=== PATIENT | male | born 1940 | race African-American/Black ===

== ENCOUNTER 2020-04-27 00:50 | Inpatient (IN) | payer MEDICARE ==
[~2020-04-27] VITALS: Ht 188 cm; Wt 104.4 kg
--- NOTE | 2020-04-27 01:02 | NUR ---
ED Nurse Note: pt walked into ED from home c/o bilateral lower extremity pain that is weeping clear fluid. Extremities are red and swollen. Pt denies numbness or tingling. Pt reported injury 2 months ago where he tripped and fell and LE have been hurting ever since.
--- NOTE | 2020-04-27 01:22 | Emergency Room Report ---
History of Present Illness General Chief Complaint: Lower Extremity Injury Source: Patient Present Illness HPI This is a 80-year-old male who is homeless. He has no past medical history. He presents with chief complaint of swelling and redness with drainage to his lower extremity. 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 He said it was bruised badly. He said it started getting red and mildly swollen about a week ago. The last 2 to 3 days it started getting more swollen and draining. Tenderness to the lower extremities. Mostly on the right side. He is then putting gauze on it. Denies any fever chills. Denies any new trauma. No nausea no vomiting. Pain is 7 out of 10. Worse with walking. Better with rest. Allergies: Coded Allergies: No Known Allergies (Unverified , 04/27/20) COVID-19 Screening Contact w/high risk pt: No Experienced COVID-19 symptoms?: No COVID-19 Testing performed JEWELRY INSPECTOR: No Patient History Past Medical History: none, see triage record, old chart reviewed Past Surgical History: none Pertinent Family History: none Social History: Denies: smoking Immunizations: other Reviewed Nursing Documentation: PMH: Agreed; PSxH: Agreed Nursing Documentation-PMH Past Medical History: No Stated History Review of Systems Eye: Denies: eye pain, blurred vision ENT: Denies: ear pain, nose congestion, throat swelling Respiratory: Denies: cough, shortness of breath Cardiovascular: Denies: chest pain, palpitations Gastrointestinal: Denies: abdominal pain, diarrhea, nausea, vomiting Musculoskeletal: Reports: muscle pain; Denies: back pain, joint pain Skin: Denies: rash Neurological: Denies: headache, numbness Endocrine: Denies: increased thirst, increased urine Hematologic/Lymphatic: Denies: easy bruising All Other Systems: negative except mentioned in HPI Physical Exam Vital Signs Date Time Temp Pulse Resp B/P (MAP) Pulse Ox O2 Delivery O2 Flow Rate FiO2 04/27/20 00:54 98.8 93 16 134/76 (95) 98 Room Air Vitals normal Sp02 EP Interpretation: reviewed, normal General Appearance: well appearing, no apparent distress, alert Head: normocephalic, atraumatic Eyes: bilateral eye PERRL, bilateral eye EOMI ENT: hearing grossly normal, normal pharynx Neck: full range of motion, supple, no meningismus Respiratory: chest non-tender, lungs clear, normal breath sounds Cardiovascular #1: regular rate, rhythm, no murmur Gastrointestinal: normal bowel sounds, non tender, no mass, no organomegaly, no bruit, non-distended Musculoskeletal: back normal, normal range of motion, gait/station normal, other - Bilateral lower extremity with lymphedema. Right lower extremity with erythema from the foot up to the proximal calf. There is ulceration with oozing serous fluid. Pulses normal. Psychiatric: mood/affect normal Medical Decision Making Diagnostic Impression: Primary Impression: Cellulitis of both lower extremities Additional Impression: Homelessness ER Course This elderly homeless male presents with lower extremity swelling and drainage. He has cellulitis mostly in the right lower extremity. Antibiotics given. Labs unremarkable. Will admit for IV antibiotics and social service consult. I discussed the case with Dr. Avalos for admission. Last Vital Signs Date Time Temp Pulse Resp B/P (MAP) Pulse Ox O2 Delivery O2 Flow Rate FiO2 04/27/20 00:54 98.8 93 16 134/76 (95) 98 Room Air Status: improved Disposition: ADMITTED INPATIENT Condition: Serious Referrals: NOT CHOSEN IPA/,REFERRING (PCP) Ulises Ivory MD Apr 27, 2020 01:22
[2020-04-27] MEDS ORDERED: Piperacillin/Tazobactam 3.375 GM in NS 110 ML IVPB ONE (01:30)
[2020-04-27] MEDS ORDERED: Vancomycin 1.5gm/NS Premix 275 ML IVPB ONE (01:30)
--- NOTE | 2020-04-27 01:42 | NUR ---
ED Nurse Note: blood and wound culture sent to lab
[2020-04-27] MEDS ORDERED: ASPIRIN81 MG ORAL (01:43)
[2020-04-27 01:55] LABS: BASOPHILS % (AUTO) 5.3 % (0.0-2.0); HEMATOCRIT 42.4 % (42.0-52.0); HEMOGLOBIN 13.1 G/DL (14.2-18.0); LYMPHOCYTES % (AUTO) 20.5 % (20.0-45.0); MEAN CORPUSCULAR VOLUME 77 FL (80-99); MONOCYTES % (AUTO) 11.4 % (1.0-10.0); NEUTROPHILS % (AUTO) 60.8 % (45.0-75.0); PLATELET COUNT 257 K/UL (150-450); RED BLOOD COUNT 5.47 M/UL (4.70-6.10); RED CELL DISTRIBUTION WIDTH 15.8 % (11.6-14.8); WHITE BLOOD COUNT 5.1 K/UL (4.8-10.8)
--- NOTE | 2020-04-27 03:00 | NUR ---
ED Nurse Note: blood resent
[2020-04-27 03:16] LABS: CALCIUM 8.5 MG/DL (8.5-10.1); CREATININE 1.6 MG/DL (0.55-1.30); POTASSIUM 3.9 MMOL/L (3.5-5.1)
--- NOTE | 2020-04-27 03:25 | NUR ---
ED Nurse Note: Report given to NORM Alford in med surg.
--- NOTE | 2020-04-27 03:27 | NUR ---
ED Nurse Note: pt transfered to med surg floor via parveen pt in stable conditon. Packet and belongings taken with patient.
[2020-04-27 04:30] VITALS: BP 134/75
--- NOTE | 2020-04-27 05:08 | NUR ---
NURSE NOTES: Paged Dr Avalos for admission orders. Vanco running through IV from ED. Patient stable, witnessed going to bathroom with steady gait
[2020-04-27] MEDS ORDERED: Morphine Sulfate 2mg/ml Inj(IV/IM USE ONLY) IVP PRN (06:00)
[2020-04-27] MEDS: D5 1/2NS 1,000 ML IV SCH ×2 (06:22→23:35)
--- NOTE | 2020-04-27 07:40 | NUR ---
NURSE NOTES: WALKING ROUNDS DONE WITH IGHT RN. PATIENT AWAKE IN BED. QUESTIONS ANSWERED, NEEDS MET AT THIS TIME. DISCUSSED PLAN OF CARE FOR THE DAY. ASSESSED BLE, NOTED PITTING EDEMA WITH MILD PAIN TO TOUCH TO LLE.KERLIX WRAPPED BY ED RN DUE TO DRAINAGE. PATIENT TO BE SEEN BY WOUND CARE NURSE TODAY.
--- NOTE | 2020-04-27 07:52 | NUR ---
HAND-OFF: Report given to NORM Heaton. Patient stable, finished breakfast.
[2020-04-27 08:00] VITALS: BP 131/75
--- NOTE | 2020-04-27 08:29 | NUR ---
NURSE NOTES: UPON DOING HEAD TO TOE ASSESSMENT NOTED PATIENT RADIAL PULSE UPON PALPATION WAS RAPID. HR 100-103. BP 131/75. ASYMPTOMATIC. NO SOB/ NO CP. PATIENT STATES THEY DO NOT TAKE PRESCRIPTION MEDS ONLY ASA PROPHYLACTICALLY. BLE NOTED EDEMATOUS AND PITTING. ERYTHEMA PRESENT. CAPILLARY REFILL LESS THAN 3 SECONDS TO BILATERAL GREAT TOES.C/O OF PAIN TO LLE VS. RLE WHEN TOUCHED. ALL FINDINGS REPORTED TO DR. ELIZABETH AND AWAITING RETURN CALL TO SUGGEST EKG AND VENOUS DUPLEX.
[2020-04-27] MEDS ORDERED: Heparin 5000 units/ml inj SUBQ SCH (09:00)
[2020-04-27 09:31] LABS: EOSINOPHILS % (AUTO) 2.5 % (0.0-3.0); HEMATOCRIT 35.9 % (42.0-52.0); HEMOGLOBIN 11.2 G/DL (14.2-18.0); LYMPHOCYTES % (AUTO) 19.4 % (20.0-45.0); MEAN CORPUSCULAR VOLUME 77 FL (80-99); MONOCYTES % (AUTO) 11.2 % (1.0-10.0); NEUTROPHILS % (AUTO) 62.9 % (45.0-75.0); PLATELET COUNT 200 K/UL (150-450); RED BLOOD COUNT 4.67 M/UL (4.70-6.10); RED CELL DISTRIBUTION WIDTH 15.6 % (11.6-14.8)
--- NOTE | 2020-04-27 09:42 | NUR ---
NURSE NOTES: RETURN CALL RECEIVED NOW FROM DR. ELIZABETH TO ORDER VENOUS DUPLEX, EKG STAT.AND CONSULT DR. CONNELL. ORDERS CARRIED OUT. SPOKE TO DR. CONNELL, IN ADDITION ORDERED 2/D ECHO STA. CARDIO TO SEE PATIENT THIS AFTERNOON. WILL FWD EKG TO MD ONCE DONE.
[2020-04-27 09:43] LABS: CREATININE 1.6 MG/DL (0.55-1.30)
--- NOTE | 2020-04-27 10:40 | NUR ---
NURSE NOTES: EKG; ABNORMAL AND FORWARDED TO DR. CONNELL. NEW ORDERS RECEIVED TO TRANSFER TO [address] [place] [address]. CHARGE NURSE AND NURSING CRATE BUILDER INFORMED. PATIENT REMAINS ASYMPTOMATIC.
--- NOTE | 2020-04-27 11:18 | NUR ---
NURSE NOTES: TRANSFER TO [facility] BED 214-1 RECEIVED.PLACED CALL TO UNIT TO RECEIVING NURSELEELA. NURSE NOT AVAILALBLE PER DARNELL SOFTWARE CLERK TO RECEIVE TRANSFER. WILL CALL BACK WITHIN 15-20 MINS.
--- NOTE | 2020-04-27 11:41 | Cardiology Report ---
APPROVED REPORT EXAM: Two-dimensional and M-mode echocardiogram with Doppler and color Doppler. INDICATION TACHYCARDIA M-Mode DIMENSIONS IVSd1.2 (0.7-1.1cm)Left Atrium (MM)4.7 (1.6-4.0cm) LVDd5.7 (3.5-5.6cm)Aortic Root3.7 (2.0-3.7cm) PWd1.2 (0.7-1.1cm)Aortic Cusp Exc.2.0 (1.5-2.0cm) IVSs1.4 cm LVDs4.5 (2.5-4.0cm) PWs1.5 cm <Conclusion> Normal left ventricular chamber size. mid to distal posterior and inferior wall ventricular hypokinesis Study reconrded during afib Left ventricular ejection fraction estimated to be 50%, however the ef looks better after long RR intervals. Mild left ventricular hypertrophy. No evidence of pericardial fat or effusion. Mild right atrial enlargement. Normal left atrial chamber size. Right ventricular chamber sizes appear enlarged adn mildlyu hypokinetic Calcification of aortic valve with adequate cusp excursion. Thickened mitral valve leaflets with normal excursion. Mitral annulus and aortic root calcification. Pulmonic valve not well visualized. Normal tricuspid valve structure. IVC dilated at 2.4cm with physiologic collapse suggestive of increased RA pressure. A color flow and spectral Doppler study was performed and revealed: Mild aortic insufficiency. Mild mitral regurgitation. Mitral inflow velocities nondiagnostic Mild tricuspid regurgitation. Tricuspid systolic velocities suggests peak right ventricular systolic pressure of 42 mmHg,consistent with mild pulmonary hypertension. Moderate pulmonic regurgitation present.
[2020-04-27 11:53] VITALS: BP 174/108
--- NOTE | 2020-04-27 12:00 | NUR ---
NURSE NOTES: TRANSFER 2 [facility]. TRANSFERRED PATIENT TO [facility] ROOM 214-1 VIA BED. ALL BELONGINGS CHECKED WITH RECEIVING RN. BEDSIDE REPORT GIVEN.
--- NOTE | 2020-04-27 12:07 | NUR ---
NURSE NOTES: Received report from NORM Heaton. Pt is stable on RA. No s/s or complaints of distress at this time. Pt bed low and locked, call light in reach, bed alarm on and pt verbalized understanding to call for help. Placed SS consult at this time as Pt stated he was recently homeless d/t covid. B leg swelling, wrapping in kerlex. Pt IV on R hand 20g asymptomatic and intact. R hand 20g asymptomatic and intact. running d51/2NS.
--- NOTE | 2020-04-27 12:40 | Consultation ---
History of Present Illness General Date patient seen: Apr 27, 2020 Chief Complaint: Lower Extremity Injury Present Illness HPI 80 y/o M with hx of homelessness presented to ED on 04/27/20 with LE swelling, redness, pain and drainage. Patient had recent injury on his legs while working on his SUV about 1 month ago and that he bruised it badly. It is worse int he right leg and pain is worse with exertion. Denied f/c, n/v/d Allergies: Coded Allergies: No Known Allergies (Unverified , 04/27/20) Medication History Scheduled Aspirin* (Aspirin*), 81 MG ORAL DAILY, (Reported) Patient History Healthcare decision maker Resuscitation status Advanced Directive on File Patient History Narrative Pmhx: as above Shx:Denies: smoking Fhx: non contributory Review of Systems All Other Systems: negative except mentioned in HPI Physical Exam Physical Exam Narrative General Appearance: well appearing, no apparent distress, alert Head: normocephalic, atraumatic Eyes: bilateral eye PERRL, bilateral eye EOMI Neck: full range of motion, supple, no meningismus Respiratory: chest non-tender, lungs clear, normal breath sounds Cardiovascular regular rate, rhythm, no murmur Gastrointestinal: normal bowel sounds, non tender, no mass, no organomegaly, no bruit, non-distended Musculoskeletal: back normal, normal range of motion, gait/station normal, other - Bilateral lower extremity with lymphedema. Right lower extremity with erythema from the foot up to the proximal calf. There is ulceration with oozing serous fluid. Pulses normal. Last 24 Hour Vital Signs Date Time Temp Pulse Resp B/P (MAP) Pulse Ox O2 Delivery O2 Flow Rate FiO2 04/27/20 11:53 98.2 108 18 174/108 (130) 96 04/27/20 09:00 Room Air 04/27/20 08:00 98.1 100 20 131/75 (93) 98 04/27/20 04:30 97.3 69 20 134/75 (94) 98 04/27/20 04:25 Room Air 04/27/20 03:26 98.8 86 18 131/68 100 Room Air 04/27/20 00:54 98.8 93 16 134/76 (95) 98 Room Air Intake and Output 04/26/20 04/27/20 19:00 07:00 Intake Total 345 ml Balance 345 ml Intake Oral 175 ml IV Total 170 ml # Voids 2 Laboratory Tests Test 04/27/20 01:40 04/27/20 02:52 04/27/20 08:15 White Blood Count 5.1 K/UL (4.8-10.8) 4.0 K/UL (4.8-10.8) L Red Blood Count 5.47 M/UL (4.70-6.10) 4.67 M/UL (4.70-6.10) L Hemoglobin 13.1 G/DL (14.2-18.0) L 11.2 G/DL (14.2-18.0) L Hematocrit 42.4 % (42.0-52.0) 35.9 % (42.0-52.0) L Mean Corpuscular Volume 77 FL (80-99) L 77 FL (80-99) L Mean Corpuscular Hemoglobin 24.0 PG (27.0-31.0) L 23.9 PG (27.0-31.0) L Mean Corpuscular Hemoglobin Concent 31.0 G/DL (32.0-36.0) L 31.1 G/DL (32.0-36.0) L Red Cell Distribution Width 15.8 % (11.6-14.8) H 15.6 % (11.6-14.8) H Platelet Count 257 K/UL (150-450) 200 K/UL (150-450) Mean Platelet Volume 9.7 FL (6.5-10.1) 10.9 FL (6.5-10.1) H Neutrophils (%) (Auto) 60.8 % (45.0-75.0) 62.9 % (45.0-75.0) Lymphocytes (%) (Auto) 20.5 % (20.0-45.0) 19.4 % (20.0-45.0) L Monocytes (%) (Auto) 11.4 % (1.0-10.0) H 11.2 % (1.0-10.0) H Eosinophils (%) (Auto) 2.0 % (0.0-3.0) 2.5 % (0.0-3.0) Basophils (%) (Auto) 5.3 % (0.0-2.0) H 4.0 % (0.0-2.0) H Lactic Acid Level 1.90 mmol/L (0.4-2.0) Sodium Level 140 MMOL/L (136-145) 139 MMOL/L (136-145) Potassium Level 3.9 MMOL/L (3.5-5.1) 4.0 MMOL/L (3.5-5.1) Chloride Level 105 MMOL/L (98-107) 105 MMOL/L (98-107) Carbon Dioxide Level 30 MMOL/L (21-32) 25 MMOL/L (21-32) Anion Gap 5 mmol/L (5-15) 9 mmol/L (5-15) Blood Urea Nitrogen 23 mg/dL (7-18) H 20 mg/dL (7-18) H Creatinine 1.6 MG/DL (0.55-1.30) H 1.6 MG/DL (0.55-1.30) H Estimat Glomerular Filtration Rate 50.8 mL/min (>60) 50.8 mL/min (>60) Glucose Level 95 MG/DL (74-106) 143 MG/DL (74-106) H Calcium Level 8.5 MG/DL (8.5-10.1) 8.0 MG/DL (8.5-10.1) L Height (Feet): 6 Height (Inches): 2.00 Weight (Pounds): 219 Medications Current Medications Medications (Trade) Dose Ordered Sig/Naa Route PRN Reason Start Time Stop Time Status Last Admin Dose Admin Dextrose/Sodium Chloride 1,000 ml @ 60 mls/hr [id number] IV 04/27/20 07:00 05/27/20 06:59 04/27/20 06:22 Heparin Sodium (Porcine) (Heparin 5000 units/ml) 5,000 units EVERY 12 HOURS SUBQ 04/27/20 09:00 06/11/20 08:59 04/27/20 09:01 Morphine Sulfate (Morphine Sulfate) 2 mg Q4H PRN IVP Severe Pain (Pain Scale 7-10) 04/27/20 06:00 05/04/20 05:59 Assessment/Plan Assessment/Plan: Abx: IV Vancomycin x1 04/27 Zosynx 1 04/27 Assessment: B/l LE cellulitis- R>L Afebrile No leukocytosis CATERINA vs CKD homelessness Plan: -Continue IV Vancomycin #1 and start Unasyn -f/u cx -Monitor CBC/CMP, temperatures -wound care per hospital protocol Thank you for this consultation. Will continue to follow along with you. Discussed with NORM. Sherron Leal M.D. Apr 27, 2020 12:40
--- NOTE | 2020-04-27 12:45 | Cardiac Electrophysiology PN ---
Subjective Subjective [id number] Objective Last 24 Hour Vital Signs Date Time Temp Pulse Resp B/P (MAP) Pulse Ox O2 Delivery O2 Flow Rate FiO2 04/27/20 11:53 98.2 108 18 174/108 (130) 96 04/27/20 09:00 Room Air 04/27/20 08:00 98.1 100 20 131/75 (93) 98 04/27/20 04:30 97.3 69 20 134/75 (94) 98 04/27/20 04:25 Room Air 04/27/20 03:26 98.8 86 18 131/68 100 Room Air 04/27/20 00:54 98.8 93 16 134/76 (95) 98 Room Air Intake and Output 04/26/20 04/27/20 19:00 07:00 Intake Total 345 ml Balance 345 ml Intake Oral 175 ml IV Total 170 ml # Voids 2 Laboratory Tests Test 04/27/20 01:40 04/27/20 02:52 04/27/20 08:15 White Blood Count 5.1 K/UL (4.8-10.8) 4.0 K/UL (4.8-10.8) L Red Blood Count 5.47 M/UL (4.70-6.10) 4.67 M/UL (4.70-6.10) L Hemoglobin 13.1 G/DL (14.2-18.0) L 11.2 G/DL (14.2-18.0) L Hematocrit 42.4 % (42.0-52.0) 35.9 % (42.0-52.0) L Mean Corpuscular Volume 77 FL (80-99) L 77 FL (80-99) L Mean Corpuscular Hemoglobin 24.0 PG (27.0-31.0) L 23.9 PG (27.0-31.0) L Mean Corpuscular Hemoglobin Concent 31.0 G/DL (32.0-36.0) L 31.1 G/DL (32.0-36.0) L Red Cell Distribution Width 15.8 % (11.6-14.8) H 15.6 % (11.6-14.8) H Platelet Count 257 K/UL (150-450) 200 K/UL (150-450) Mean Platelet Volume 9.7 FL (6.5-10.1) 10.9 FL (6.5-10.1) H Neutrophils (%) (Auto) 60.8 % (45.0-75.0) 62.9 % (45.0-75.0) Lymphocytes (%) (Auto) 20.5 % (20.0-45.0) 19.4 % (20.0-45.0) L Monocytes (%) (Auto) 11.4 % (1.0-10.0) H 11.2 % (1.0-10.0) H Eosinophils (%) (Auto) 2.0 % (0.0-3.0) 2.5 % (0.0-3.0) Basophils (%) (Auto) 5.3 % (0.0-2.0) H 4.0 % (0.0-2.0) H Lactic Acid Level 1.90 mmol/L (0.4-2.0) Sodium Level 140 MMOL/L (136-145) 139 MMOL/L (136-145) Potassium Level 3.9 MMOL/L (3.5-5.1) 4.0 MMOL/L (3.5-5.1) Chloride Level 105 MMOL/L (98-107) 105 MMOL/L (98-107) Carbon Dioxide Level 30 MMOL/L (21-32) 25 MMOL/L (21-32) Anion Gap 5 mmol/L (5-15) 9 mmol/L (5-15) Blood Urea Nitrogen 23 mg/dL (7-18) H 20 mg/dL (7-18) H Creatinine 1.6 MG/DL (0.55-1.30) H 1.6 MG/DL (0.55-1.30) H Estimat Glomerular Filtration Rate 50.8 mL/min (>60) 50.8 mL/min (>60) Glucose Level 95 MG/DL (74-106) 143 MG/DL (74-106) H Calcium Level 8.5 MG/DL (8.5-10.1) 8.0 MG/DL (8.5-10.1) Adrian Sunshine MD Apr 27, 2020 12:45
--- NOTE | 2020-04-27 14:03 | NUR ---
CASE MANAGEMENT:INITIAL REVIEW 80 YR OLD FEMALE FROM HOME CC;LOWER EXTREMITY INJURY SI;LOWER EXTREMITY CELLULITIS 98.3 128 20 174/108 96% ON RA BUN 23 CR 1.6 2D ECHO W/DOPPLER ~ Mild aortic insufficiency. Mild mitral regurgitation. Mitral inflow velocities nondiagnostic Mild tricuspid regurgitation. Tricuspid systolic velocities suggests peak right ventricular systolic pressure of 42 mmHg,consistent with mild pulmonary hypertension. Moderate pulmonic regurgitation present. IS;ZOSYN IV VANCOMYCIN IV IVF NS BOLUS ADMITTED TO MED SURG 04/27/20 0236 TRANSFERRED TO TELE 04/27/20 @ 1032 TELE STATUS DCP;FROM HOME
--- NOTE | 2020-04-27 14:44 | Diagnostic Imaging Report ---
Indication:Leg pain and swelling Technique: Grayscale and duplex Doppler imaging of the veins in both lower extremities performed in real time utilizing compression and augmentation. Comparison: None Findings: Duplex Doppler interrogation of the veins in both lower extremity is performed from the common femoral vein to the popliteal vein. Normal venous compressibility demonstrated throughout. No thrombus identified. Waveform analysis shows good respiratory phasicity and augmentation. There is mild subcutaneous soft tissue edema. IMPRESSION: No evidence of deep venous thrombosis involving the lower extremities.
--- NOTE | 2020-04-27 15:47 | NUR ---
WINEMAKER NOTE SW met w/ pt to discuss homelessness. Pt presents as A&O4x. Pt has been homeless for 5 months after being evicted from his apartment. Pt has been staying in his van, currently parked on the street. Pt has been staying in [facility]. Pt receives SSI and has no income left for this month. Pt reports paying his storage $500/mo and his car insurance bill. Pt reports being ambulatory w/o DMEs and independent w/ ADLs prior to admission. Pt reports having no children/family emergency contact. Pt reports he does have some tasks to complete upon DC: smog test for his car and get food safety certification. PT reports he will consider accepting placement assistance. SW will re-visit pt to discuss DC planning when DC date is known.
[2020-04-27 16:00] VITALS: BP 136/72
[2020-04-27] MEDS ORDERED: Vancomycin 1.5gm/NS Premix q24h IVPB SCH (16:00)
--- NOTE | 2020-04-27 17:00 | History and Physical Report ---
DATE OF ADMISSION: 04/27/2020 TIME SEEN: 1 p.m. CONSULTANTS: 1. Juan Juan MD 2. Adrian Rahman MD CHIEF COMPLAINT: Cellulitis right leg, possible arrhythmia. BRIEF HISTORY: This is a 80-year-old homeless man, who presents to [facility] with about 1 week increased redness in the right leg, diagnosed with the above, admitted to [facility]. Currently calm in bed. No complaint. No chest pain. No shortness of breath. No nausea, vomiting, or diarrhea. PAST MEDICAL HISTORY: Nothing. PAST SURGICAL HISTORY: Back surgery. MEDICATIONS: Include furosemide, carvedilol, apixaban, morphine, vancomycin, Zosyn. ALLERGIES: Denies. SOCIAL HISTORY: No smoking. No alcohol. No intravenous drug abuse. FAMILY HISTORY: Noncontributory. PHYSICAL EXAMINATION: GENERAL: Calm in bed, oriented x3, no acute distress. VITAL SIGNS: Temperature is 98 degrees, pulse 108, respirations 18, blood pressure 174/108, initially 134/75. CARDIOVASCULAR: No murmur. LUNGS: Distant and clear. ABDOMEN: Bowel sounds positive. Nontender. Nondistended. EXTREMITIES: No cyanosis, clubbing, or edema. Right rae area slightly radiating down to the foot slightly swollen, slightly red. Gauze dressing clean and dry. NEUROLOGIC: Patient moves all extremities, slightly weak. LABORATORY DATA: Labs at this time show white count 4, hemoglobin/hematocrit 11/35, platelets 200. BMP show BUN/creatinine 20/1.6, glucose 143. ASSESSMENT: 1. Cellulitis right leg. 2. Arrhythmia possibly. 3. Elevated blood sugar. PLAN: 1. Blood pressure, blood sugar, pain control. 2. Wound care. 3. Dietary followup. 4. Cardiology and ID followup. 5. evaluation when stable. 6. CBC, BMP in the morning. Robert Avalos D.O. DR: GERRY JOB#: [id number] CC:
[2020-04-27] MEDS: Ampicillin/Sulbactam Sod 3 GM in NS 110 ML IVPB SCH ×2 (18:11→23:36)
[2020-04-27] MEDS: Eliquis 5mg tablet ORAL SCH (18:11)
--- NOTE | 2020-04-27 19:10 | NUR ---
NURSE NOTES: Received report from NORM Morgan. Pt alert/oriented x4, able to make needs known. No resp distress noted. service support representative in place. No s/s or complaints of distress at this time. IV on right hand running D5 1/2 NS AT 60CC/HR no s/s infiltration noted. Bilateral lower legs cellulitis, noted red, swollen & warm to touch. Bed in low position & locked, side rails up x2. Call light with in reach. Will continue plan of care.
--- NOTE | 2020-04-27 19:25 | NUR ---
NURSE HAND-OFF REPORT: Important Events on Shift: AFIB, transfer from [facility] to [facility] Patient Status: fc, stable Diet: regular Pending Orders: Pending Results/Labs: Pending MD notification: Latest Vital Signs: Temperature 97.7 , Pulse 116 , B/P 136 /72 , Respiratory Rate 20 , O2 SAT 98 , Room Air, O2 Flow Rate . Vital Sign Comment: EKG Rhythm: Atrial Fibrillation Rhythm change?: N MD Notified?: Robbie Dobbins MD Response: Latest Saleh Fall Score: 60 Fall Risk: High Risk Safety Measures: Call light Within Reach, Bed Alarm Zone 1, Side Rails Side Rails x2, Bed position Low and Locked. Fall Precautions: Door Sign Patient Fall Education Report given to NORM Bronson.NURSE NOTES:
[2020-04-27 20:00] VITALS: BP 127/76
--- NOTE | 2020-04-27 20:30 | Consultation ---
DATE OF CONSULTATION: 04/27/2020 CARDIOLOGY CONSULTATION CONSULTING PHYSICIAN: Adrian Rahman MD REFERRING PHYSICIAN: Robert Avalos DO REASON FOR THE CARDIAC CONSULTATION: Congestive heart failure and lower extremity edema, ejection fraction of 40% as well as atrial fibrillation with rapid ventricular response. HISTORY OF PRESENT ILLNESS: The patient is a very pleasant 80-year-old gentleman who is homeless with no known past medical history, who presented to the emergency room with swelling, redness, and drainage from lower extremity. He said that he injured it while working on a ceiling about a month ago and it was bleeding badly. He said it started getting red and mildly swollen about a week ago and it was draining in the last 2-3 days. The patient was admitted to telemetry and was started on IV antibiotic; however, today the patient developed tachycardia with heart rate in 130s and EKG was performed that showed atrial fibrillation with rapid ventricular response with heart rate of 150 as well as bifascicular block. The patient was then transferred to telemetry at my request and Cardiology consultation was obtained for further evaluation. REVIEW OF SYSTEMS: Negative other than what is mentioned in history of present illness. PAST MEDICAL HISTORY: As mentioned above. FAMILY HISTORY: Noncontributory. SOCIAL HISTORY: He is homeless and occasionally smokes, but denies drinking alcohol or using any drugs. PHYSICAL EXAMINATION: VITAL SIGNS: Blood pressure of 174/108, pulse is 108, respirations 18, and temperature 98.2. NECK: Showed mild JVD. LUNGS: Decreased breath sounds. CARDIOVASCULAR: Irregularly irregular S1 and S2 with no gallop. ABDOMEN: Soft. EXTREMITIES: Bilateral lower extremity edema and cellulitis. LABORATORY AND DIAGNOSTIC DATA: Labs showed white count of 4, hemoglobin 11.2, hematocrit 36, and platelet count of 200,000. Sodium was 139, potassium 4.0, BUN of 20, creatinine 1.6, and glucose of 143. Lactic acid 1.9. EKG showed atrial fibrillation with rapid ventricular response with bifascicular block and T-wave abnormalities suggestive of lateral ischemia. His echocardiogram showed ejection fraction of only 40% and mild mitral regurgitation. Lower extremity duplex showed no evidence of DVT. ASSESSMENT AND PLAN: 1. Congestive heart failure with ejection fraction of 40%. This is newly diagnosed cardiomyopathy. I will start the patient on Coreg and add Lasix medical regimen, and watch his renal function. At some point, the patient will need cardiac catheterization for further evaluation of his coronaries, especially in view of inferolateral ischemia on a 12-lead EKG. 2. Atrial fibrillation with rapid ventricular response. I will add Coreg to his medical regimen hopefully to control ventricular response. Otherwise, we will switch him to low-dose metoprolol. The patient will be started on anticoagulation with Eliquis 5 mg b.i.d. 3. Bilateral lower extremity cellulitis. The patient is on antibiotic per ID. Thank you very much for allowing me to participate in the care of this patient. Please do not hesitate to contact me for any questions regarding my evaluation. Adrian Rahman M.D. DR: JORJE JOB#: [id number] CC:
[2020-04-27] MEDS: Carvedilol 6.25mg Tab ORAL SCH (20:47)
--- NOTE | 2020-04-27 22:57 | Consultation ---
History of Present Illness General Reason for Hospitalization: Lower Extremity Injury Present Illness HPI This is a very pleasant 80-year-old male who is homeless and has no apparent past medical history that presents to [facility] for evaluation of swelling and redness with drainage to his lower extremity. 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 He said it was bruised badly. He said it started getting red and mildly swollen about a week ago. The last 2 to 3 days it started getting more swollen and draining. Tenderness to the lower e xtremities. Mostly on the right side. He is then putting gauze on it. Denies any fever chills. Denies any new trauma. No nausea no vomiting. Pain is 7 out of 10. Worse with walking. Better with rest. surgery called to evaluate and assist with care. Allergies: Coded Allergies: No Known Allergies (Unverified , 04/27/20) COVID-19 Screening Contact w/high risk pt: No Experienced COVID-19 symptoms?: No Medication History Scheduled Aspirin* (Aspirin*), 81 MG ORAL DAILY, (Reported) Patient History History Provided By: Patient, Medical Record, PMD Healthcare decision maker Resuscitation status Advanced Directive on File Past Medical/Surgical History Past Medical/Surgical History: (1) Homelessness (2) Cellulitis of both lower extremities Review of Systems Review of Symptoms General ROS: no weight loss or fever Psychological ROS: no depression or mood changes, no memory loss Ophthalmic ROS: no visual changes or eye irritation ENT ROS: no nasal congestion, hearing loss, dizziness Allergy and Immunology ROS: no allergic symptoms or urticaria Hematological and Lymphatic ROS: no swollen glands, unusual bleeding or bruising Endocrine ROS: no polyuria, polydipsia, weight changes, temperature intolerance Respiratory ROS: no cough, shortness of breath, or wheezing Cardiovascular ROS: no chest pain or dyspnea on exertion Gastrointestinal ROS: denies abdominal pain, bright red blood in stool. Musculoskeletal ROS: no myalgias or arthralgias Neurological ROS: no TIA or stroke symptoms Dermatological ROS: no new or changing skin lesions, rashes or pruritis Physical Exam Physical Exam General appearance: alert, cooperative, no distress, appears stated age Head: Normocephalic, without obvious abnormality, atraumatic Eyes: conjunctivae/corneas clear. PERRL, EOM's intact. Fundi benign Throat: Lips, mucosa, and tongue normal. Teeth and gums normal Neck: supple, symmetrical, trachea midline, no adenopathy, thyroid: not enlarged, symmetric, no tenderness/mass/nodules, no carotid bruit and no JVD Lungs: clear to auscultation bilaterally Heart: regular rate and rhythm, S1, S2 normal, no murmur, click, rub or gallop Abdomen: soft, non-tender. Bowel sounds normal. No masses, no organomegaly Extremities: extremities cellulitis edema Pulses: 2+ and symmetric Skin: Skin color, texture, turgor normal. No rashes or lesions Neurologic: Grossly normal Last 24 Hour Vital Signs Date Time Temp Pulse Resp B/P (MAP) Pulse Ox O2 Delivery O2 Flow Rate FiO2 04/27/20 20:47 109 127/76 04/27/20 16:00 116 04/27/20 16:00 97.7 70 20 136/72 (93) 98 04/27/20 12:00 128 04/27/20 11:53 98.2 108 18 174/108 (130) 96 04/27/20 09:00 Room Air 04/27/20 08:00 98.1 100 20 131/75 (93) 98 04/27/20 04:30 97.3 69 20 134/75 (94) 98 04/27/20 04:25 Room Air 04/27/20 03:26 98.8 86 18 131/68 100 Room Air 04/27/20 00:54 98.8 93 16 134/76 (95) 98 Room Air Intake and Output 04/26/20 04/27/20 18:59 06:59 Intake Total 285 ml Balance 285 ml Intake Oral 175 ml IV Total 110 ml # Voids 2 Laboratory Tests Test 04/27/20 01:40 04/27/20 02:52 04/27/20 08:15 04/27/20 14:00 White Blood Count 5.1 K/UL (4.8-10.8) 4.0 K/UL (4.8-10.8) L Red Blood Count 5.47 M/UL (4.70-6.10) 4.67 M/UL (4.70-6.10) L Hemoglobin 13.1 G/DL (14.2-18.0) L 11.2 G/DL (14.2-18.0) L Hematocrit 42.4 % (42.0-52.0) 35.9 % (42.0-52.0) L Mean Corpuscular Volume 77 FL (80-99) L 77 FL (80-99) L Mean Corpuscular Hemoglobin 24.0 PG (27.0-31.0) L 23.9 PG (27.0-31.0) L Mean Corpuscular Hemoglobin Concent 31.0 G/DL (32.0-36.0) L 31.1 G/DL (32.0-36.0) L Red Cell Distribution Width 15.8 % (11.6-14.8) H 15.6 % (11.6-14.8) H Platelet Count 257 K/UL (150-450) 200 K/UL (150-450) Mean Platelet Volume 9.7 FL (6.5-10.1) 10.9 FL (6.5-10.1) H Neutrophils (%) (Auto) 60.8 % (45.0-75.0) 62.9 % (45.0-75.0) Lymphocytes (%) (Auto) 20.5 % (20.0-45.0) 19.4 % (20.0-45.0) L Monocytes (%) (Auto) 11.4 % (1.0-10.0) H 11.2 % (1.0-10.0) H Eosinophils (%) (Auto) 2.0 % (0.0-3.0) 2.5 % (0.0-3.0) Basophils (%) (Auto) 5.3 % (0.0-2.0) H 4.0 % (0.0-2.0) H Lactic Acid Level 1.90 mmol/L (0.4-2.0) Sodium Level 140 MMOL/L (136-145) 139 MMOL/L (136-145) Potassium Level 3.9 MMOL/L (3.5-5.1) 4.0 MMOL/L (3.5-5.1) Chloride Level 105 MMOL/L (98-107) 105 MMOL/L (98-107) Carbon Dioxide Level 30 MMOL/L (21-32) 25 MMOL/L (21-32) Anion Gap 5 mmol/L (5-15) 9 mmol/L (5-15) Blood Urea Nitrogen 23 mg/dL (7-18) H 20 mg/dL (7-18) H Creatinine 1.6 MG/DL (0.55-1.30) H 1.6 MG/DL (0.55-1.30) H Estimat Glomerular Filtration Rate 50.8 mL/min (>60) 50.8 mL/min (>60) Glucose Level 95 MG/DL (74-106) 143 MG/DL (74-106) H Calcium Level 8.5 MG/DL (8.5-10.1) 8.0 MG/DL (8.5-10.1) L Troponin I 0.044 ng/mL (0.000-0.056) Test 04/27/20 22:15 Troponin I Pending Height (Feet): 6 Height (Inches): 2.00 Weight (Pounds): 219 Medications Current Medications Medications (Trade) Dose Ordered Sig/Naa Route PRN Reason Start Time Stop Time Status Last Admin Dose Admin Ampicillin Sodium/ Sulbactam Sodium 3 gm/Sodium Chloride 110 ml @ 220 mls/hr Q6HR IVPB 04/27/20 18:00 05/04/20 17:59 04/27/20 18:11 Apixaban (Eliquis) 5 mg BID ORAL 04/27/20 18:00 07/26/20 17:59 04/27/20 18:11 Carvedilol (Coreg) 6.25 mg EVERY 12 HOURS ORAL 04/27/20 21:00 05/27/20 20:59 04/27/20 20:47 Dextrose/Sodium Chloride 1,000 ml @ 60 mls/hr [id number] IV 04/27/20 07:00 05/27/20 06:59 04/27/20 06:22 Furosemide (Lasix) 40 mg DAILY IV 04/28/20 09:00 05/28/20 08:59 Morphine Sulfate (Morphine Sulfate) 2 mg Q4H PRN IVP Severe Pain (Pain Scale 7-10) 04/27/20 06:00 05/04/20 05:59 Vancomycin HCl ([facility] pharmacy to dose) 1 ea DAILY PRN MISC Per rx protocol 04/27/20 14:15 05/27/20 14:14 Assessment/Plan Problem List: (1) Homelessness ICD Codes: Z59.0 - Homelessness; L03.116 - Cellulitis of left lower limb SNOMED: 37927953 (2) Cellulitis of both lower extremities Assessment & Plan: Patient present on admission with bilateral lower extremity cellulitis and edema. Recent trauma and persistently has had some edema now with superimposed infection cellulitis. No abscess identified. Wounds noted with skin breakdown small ulcerations in bilateral lower extremities right worse than left. Seemingly fluid overloaded as well. No acute surgical intervention recommended this time. Will need local wound care. Wash wounds daily with normal saline. Apply Thera honey to open ulcerations followed by nonadherent dressing and wrap with Kerlix. Keep leg elevated above with pillow. Turn every 2 hours. Offload pressures. Nutritional optimization. Will follow with local care and recommendations. Thank you for letting participate patient's care. Antibiotics per infectious disease. Duplex Doppler interrogation of the veins in both lower extremity is performed from the common femoral vein to the popliteal vein. Normal venous compressibility demonstrated throughout. No thrombus identified. Waveform analysis shows good respiratory phasicity and augmentation. There is mild subcutaneous soft tissue edema. IMPRESSION: No evidence of deep venous thrombosis involving the lower extremities. ICD Codes: L03.115 - Cellulitis of right lower limb; L03.116 - Cellulitis of left lower limb SNOMED: 107056034 Marquise Zamorano Apr 27, 2020 22:56
--- NOTE | 2020-04-27 23:19 | NUR ---
NURSE NOTES: Notified Dr. Rahman regarding Troponin level of 0.058 awaiting return call.
[2020-04-28] VITALS (19 sets, daily range): BP systolic 123–186; BP diastolic 66–115
[2020-04-28 03:44] LABS: BASOPHILS % (AUTO) 1.1 % (0.0-2.0); EOSINOPHILS % (AUTO) 5.6 % (0.0-3.0); HEMATOCRIT 37.1 % (42.0-52.0); HEMOGLOBIN 11.2 G/DL (14.2-18.0); LYMPHOCYTES % (AUTO) 24.1 % (20.0-45.0); MEAN CORPUSCULAR VOLUME 82 FL (80-99); MONOCYTES % (AUTO) 10.2 % (1.0-10.0); PLATELET COUNT 214 K/UL (150-450); RED BLOOD COUNT 4.54 M/UL (4.70-6.10); RED CELL DISTRIBUTION WIDTH 16.6 % (11.6-14.8); WHITE BLOOD COUNT 4.6 K/UL (4.8-10.8)
[2020-04-28 04:24] LABS: CALCIUM 7.9 MG/DL (8.5-10.1); CREATININE 1.4 MG/DL (0.55-1.30); POTASSIUM 4.1 MMOL/L (3.5-5.1)
[2020-04-28] MEDS: Ampicillin/Sulbactam Sod 3 GM in NS 110 ML IVPB SCH ×3 (05:39→19:18)
--- NOTE | 2020-04-28 06:30 | NUR ---
NURSE NOTES: Notified DR. Rahman regarding pts having an episode of rapid A.fib at rate of 150awaiting return call.
--- NOTE | 2020-04-28 06:30 | NUR ---
NURSE NOTES: nOTFIED dr. KO BOND
--- NOTE | 2020-04-28 07:00 | NUR ---
NURSE NOTES: ordered stat EKG & Triponin level will note & carry out.
--- NOTE | 2020-04-28 07:00 | NUR ---
NURSE NOTES: Dr. Rahman ordered stat Triponin 7
--- NOTE | 2020-04-28 07:29 | NUR ---
NURSE HAND-OFF REPORT: Important Events on Shift:PT HAS EPISODE OF RAID A.FIB AT 150, DR. CONNELL MADE AWARE WITH NEW ORDERED NOTED & CARRIED OUT. EKG DONE ENDORSED TO AM SHIFT. nO C/O OF CHEST PAIN OR DIZZINESS AT THIS TIME Patient Status: STABLE Diet: REGULAR Pending Orders: YES Pending Results/Labs:[] Pending MD notification:[] Latest Vital Signs: Temperature 96.8 , Pulse 115 , B/P 133 /82 , Respiratory Rate 20 , O2 SAT 97 , Room Air, O2 Flow Rate . Vital Sign Comment: [] EKG Rhythm: Atrial Fibrillation Rhythm change?: N Notified?: Candace Dobbins MD Response: Latest Saleh Fall Score: 60 Fall Risk: High Risk Safety Measures: Call light Within Reach, Bed Alarm Zone 1, Side Rails Side Rails x2, Bed position Low and Locked. Fall Precautions: Door Sign Patient Fall Education Report given to NORM ESTRELLA.
--- NOTE | 2020-04-28 07:37 | NUR ---
NURSE NOTES: Received report from NORM Bronson. Patient in bed resting, no active s/s respiratory distress noticed at this time. Patient on room air, IV on right arm 20G, right hand 18G patent, intact. Endorsed @0555, A.fib with RVR HR 150s, STAT EKG ordered. Patient AOx4, denies chest pain at this time. Bed in lowest position, side rails upx3, call light within reach, bed alarm on, Will continue to monitor.
--- NOTE | 2020-04-28 07:44 | NUR ---
NURSE NOTES: STAT EKG done, paged Dr. Lorna MD made aware of result, per MD, transfer patient to ICU for Cardizem drip. Order noted, entered, carried out.
[2020-04-28] MEDS ORDERED: Vancomycin 1.5gm/NS Premix IVPB ONE (08:00)
--- NOTE | 2020-04-28 08:13 | NUR ---
TRANSFER TO FLOOR: Patient transferred to ICU , per Dr. Rahman. Report given to NORM Andrew. Belongings and medications given to Lorrie. Family and or S/O informed of transfer.
--- NOTE | 2020-04-28 08:14 | NUR ---
NURSE NOTES: Received patient from telemetry, placed on cardiac monitored bed. Atrial fib noted in the monitor HR from 111-120. Patient is awake, verbal, oriented x 4. Able to verbalized needs. Denies any chest pain at this time. No respiratory distress. Remains room air, with oxygen saturation of 98% in the monitor. Patient's belongings checked and reviewed with transferring RN/Kevin Dixon. Patient on continuous IVF of D5 1/2 NS running at 60ml/hour on patient's Right hand g18. Regular breakfast tray offered. Bilateral lower limb swelling noted, redness and warm to touch. Educated patient to elevate, pillows placed. Call light placed within reach. Standard precautions observed. will continue plan of care.
--- NOTE | 2020-04-28 08:19 | NUR ---
CASE MANAGEMENT:REVIEW 04/28/20 SI: LE CELLULITIS. RAPID AFIB. TROPONIN LEAK 96.8 150 20 133/84 97% ON RA BUN+25 CR+1.4 BNP+4785 IS: IV LASIX QD IV VANCOMYCIN X1 IV AMPICILLIN Q6HRS IVF@60/HR COREG PO Q12 ELIQUIS PO BID CARDIZEM GTT ? : TRANSFERRED FROM TELE TO ICU DCP: FROM HOME PLAN: REFER TO [facility] WHEN STABLE IF PATIENT AGREES
[2020-04-28] MEDS: Carvedilol 6.25mg Tab ORAL SCH (08:25)
[2020-04-28] MEDS ORDERED: dilTIAZem Premix 125mg/125ml 125 ML IVPB SCH (09:00)
--- NOTE | 2020-04-28 09:30 | NUR ---
NURSE NOTES: Dr. Avalos at bedside, discussing plan of care with patient.
[2020-04-28] MEDS: Eliquis 5mg tablet ORAL SCH ×2 (09:37→17:34)
--- NOTE | 2020-04-28 09:51 | General Progress Note ---
Subjective Constitutional: Reports: weakness Allergies: Coded Allergies: No Known Allergies (Unverified , 04/27/20) All Systems: reviewed and negative except above Subjective calm in icu Objective Last 24 Hour Vital Signs Date Time Temp Pulse Resp B/P (MAP) Pulse Ox O2 Delivery O2 Flow Rate FiO2 04/28/20 09:00 118 22 133/88 (103) 88 04/28/20 08:25 124 147/115 04/28/20 08:20 97.0 124 20 147/115 (126) 97 04/28/20 08:15 Room Air 04/28/20 08:01 111 04/28/20 07:50 111 04/28/20 04:00 115 04/28/20 04:00 96.8 110 20 133/82 (99) 97 04/28/20 00:00 98.8 102 18 123/76 (92) 95 04/28/20 00:00 107 04/27/20 21:00 Room Air 04/27/20 20:47 109 127/76 04/27/20 20:00 97.7 109 18 127/76 (93) 97 04/27/20 20:00 132 04/27/20 16:00 116 04/27/20 16:00 97.7 70 20 136/72 (93) 98 04/27/20 12:00 128 04/27/20 11:53 98.2 108 18 174/108 (130) 96 Intake and Output 04/27/20 04/28/20 19:00 07:00 Intake Total 1600 ml 400 ml Output Total 600 ml Balance 1600 ml -200 ml Intake Oral 1360 ml 400 ml IV Total 240 ml Output Urine Total 600 ml Laboratory Tests 04/27/20 14:00: Troponin I 0.044 04/27/20 22:15: Troponin I 0.058H 04/28/20 03:17: Troponin I 0.038, White Blood Count 4.6L, Red Blood Count 4.54L, Hemoglobin 11.2L, Hematocrit 37.1L, Mean Corpuscular Volume 82, Mean Corpuscular Hemoglobin 24.7L, Mean Corpuscular Hemoglobin Concent 30.3L, Red Cell Distribution Width 16.6H, Platelet Count 214, Mean Platelet Volume 11.1H, Neutrophils (%) (Auto) 59.0, Lymphocytes (%) (Auto) 24.1, Monocytes (%) (Auto) 10.2H, Eosinophils (%) (Auto) 5.6H, Basophils (%) (Auto) 1.1, Sodium Level 137, Potassium Level 4.1, Chloride Level 107, Carbon Dioxide Level 26, Anion Gap 4L, Blood Urea Nitrogen 25H, Creatinine 1.4H, Estimat Glomerular Filtration Rate 59.3, Glucose Level 121H, Calcium Level 7.9L, Pro-B-Type Natriuretic Peptide 4785H, Random Vancomycin Level 14.2 04/28/20 07:45: Troponin I 0.041, Phosphorus Level 4.0, Magnesium Level 1.7L, Thyroid Stimulating Hormone (TSH) [Pending], Digoxin Level < 0.2L Height (Feet): 6 Height (Inches): 2.00 Weight (Pounds): 219 General Appearance: lethargic EENT: normal ENT inspection Neck: normal alignment Cardiovascular: normal peripheral pulses, normal rate Respiratory/Chest: chest wall non-tender, lungs clear, normal breath sounds Abdomen: normal bowel sounds, non tender, soft Extremities: normal inspection Edema: no edema noted Arm (L), no edema noted Arm (R), no edema noted Leg (L), no edema noted Leg (R), no edema noted Pedal (L), no edema noted Pedal (R), no edema noted Generalized Neurologic: responsive, motor weakness Skin: normal pigmentation, warm/dry Assessment/Plan Problem List: (1) Afib ICD Codes: I48.91 - Unspecified atrial fibrillation SNOMED: 92024198 (2) Homelessness ICD Codes: Z59.0 - Homelessness; L03.116 - Cellulitis of left lower limb SNOMED: 42704520 (3) Cellulitis of both lower extremities ICD Codes: L03.115 - Cellulitis of right lower limb; L03.116 - Cellulitis of left lower limb SNOMED: 417519649 Status: unchanged Assessment/Plan: cardio f/u wound care abx cbc bmp am Robert Avalos DO Apr 28, 2020 09:51
--- NOTE | 2020-04-28 10:10 | NUR ---
NURSE NOTES: Dr. Zamorano at bed side, assessed patient's bilateral lower limb cellulitis. No new order at this time.
--- NOTE | 2020-04-28 10:45 | NUR ---
NURSE NOTES: Dr. Rahman at bedside. Informed Dr. Rahman that Cardizem drip isn't started yet, controlled Atrial fib in the qa manager. Discussing plan of care with patient. With new orders to increase Coreg PO to 12.5mg PO every 12 hours, digoxin IV push 0.5mg x 1 now, digoxin 0.25mg PO QD starting tomorrow, mag oxide 400mg PO q12 hours. And to hold Cardizem drip for now.
[2020-04-28] MEDS ORDERED: Digoxin 0.5mg/2ml Inj IVP SCH (11:00)
[2020-04-28] MEDS: Magnesium Oxide 400mg tab ORAL SCH ×2 (11:16→20:42)
--- NOTE | 2020-04-28 11:58 | Cardiac Electrophysiology PN ---
Assessment/Plan Assessment/Plan 1. Congestive heart failure with ejection fraction of 40%. This is newly diagnosed cardiomyopathy. Increase Coreg to 25 bid and add Digoxin 0.25 daily. Already on Lasix 40 iv daily At some point, the patient will need cardiac catheterization for further evaluation of his coronaries, especially in view of inferolateral ischemia on a 12-lead EKG. 2. Atrial fibrillation with rapid ventricular response. Transferred to ICU but try to avoid Cardizem drip if possible. Increase Coreg to 25 bid and give Dig 0.5 iv once and add Digoxin 0.25 daily. Already on anticoagulation with Eliquis 5 mg b.i.d. 3. Bilateral lower extremity cellulitis. The patient is on antibiotic per ID. \ DW RN Subjective Subjective Transferred to ICU for atrial fib with RVR 150s.No CP or SOB.HR around 110 now. Objective Last 24 Hour Vital Signs Date Time Temp Pulse Resp B/P (MAP) Pulse Ox O2 Delivery O2 Flow Rate FiO2 04/28/20 11:16 95 04/28/20 11:00 95 20 133/99 (110) 04/28/20 10:00 104 20 124/70 (88) 86 04/28/20 09:00 118 22 133/88 (103) 88 04/28/20 08:25 124 147/115 04/28/20 08:20 97.0 124 20 147/115 (126) 97 04/28/20 08:15 Room Air 04/28/20 08:01 111 04/28/20 07:50 111 04/28/20 04:00 115 04/28/20 04:00 96.8 110 20 133/82 (99) 97 04/28/20 00:00 98.8 102 18 123/76 (92) 95 04/28/20 00:00 107 04/27/20 21:00 Room Air 04/27/20 20:47 109 127/76 04/27/20 20:00 97.7 109 18 127/76 (93) 97 04/27/20 20:00 132 04/27/20 16:00 116 04/27/20 16:00 97.7 70 20 136/72 (93) 98 04/27/20 12:00 128 Intake and Output 04/27/20 04/28/20 19:00 07:00 Intake Total 1600 ml 400 ml Output Total 600 ml Balance 1600 ml -200 ml Intake Oral 1360 ml 400 ml IV Total 240 ml Output Urine Total 600 ml Laboratory Tests Test 04/27/20 14:00 04/27/20 22:15 04/28/20 03:17 04/28/20 07:45 Troponin I 0.044 ng/mL (0.000-0.056) 0.058 ng/mL (0.000-0.056) 0.038 ng/mL (0.000-0.056) 0.041 ng/mL (0.000-0.056) White Blood Count 4.6 K/UL (4.8-10.8) L Red Blood Count 4.54 M/UL (4.70-6.10) L Hemoglobin 11.2 G/DL (14.2-18.0) L Hematocrit 37.1 % (42.0-52.0) L Mean Corpuscular Volume 82 FL (80-99) Mean Corpuscular Hemoglobin 24.7 PG (27.0-31.0) L Mean Corpuscular Hemoglobin Concent 30.3 G/DL (32.0-36.0) L Red Cell Distribution Width 16.6 % (11.6-14.8) H Platelet Count 214 K/UL (150-450) Mean Platelet Volume 11.1 FL (6.5-10.1) H Neutrophils (%) (Auto) 59.0 % (45.0-75.0) Lymphocytes (%) (Auto) 24.1 % (20.0-45.0) Monocytes (%) (Auto) 10.2 % (1.0-10.0) H Eosinophils (%) (Auto) 5.6 % (0.0-3.0) H Basophils (%) (Auto) 1.1 % (0.0-2.0) Sodium Level 137 MMOL/L (136-145) Potassium Level 4.1 MMOL/L (3.5-5.1) Chloride Level 107 MMOL/L (98-107) Carbon Dioxide Level 26 MMOL/L (21-32) Anion Gap 4 mmol/L (5-15) L Blood Urea Nitrogen 25 mg/dL (7-18) H Creatinine 1.4 MG/DL (0.55-1.30) H Estimat Glomerular Filtration Rate 59.3 mL/min (>60) Glucose Level 121 MG/DL (74-106) H Calcium Level 7.9 MG/DL (8.5-10.1) L Pro-B-Type Natriuretic Peptide 4785 pg/mL (0-125) H Random Vancomycin Level 14.2 ug/mL Phosphorus Level 4.0 MG/DL (2.5-4.9) Magnesium Level 1.7 MG/DL (1.8-2.4) L Thyroid Stimulating Hormone (TSH) 3.305 uiU/mL (0.358-3.740) Digoxin Level < 0.2 NG/ML (0.5-2.0) L Microbiology Date/Time Source Procedure Growth Status 04/27/20 01:40 Other Gram Stain - Final Resulted 04/27/20 01:40 Wound Culture - Preliminary Gram Negative Bacillus 1 Gram Positive Cocci Resulted Objective NECK: mild JVD. LUNGS: Decreased breath sounds. CARDIOVASCULAR: Irregularly irregular S1 and S2 with no gallop. ABDOMEN: Soft. EXTREMITIES: Bilateral lower extremity edema and cellulitis. Adrian Rahman MD Apr 28, 2020 11:58
--- NOTE | 2020-04-28 12:00 | NUR ---
NURSE NOTES: Patient tolerating lunch meal. Able to feed self.
--- NOTE | 2020-04-28 12:13 | Infectious Diseases Prog Note ---
Assessment/Plan Assessment: B/l LE cellulitis- R>L -wound cx GPC, GNR Afebrile No leukocytosis CATERINA vs CKD; improving Afib w/ RVR homelessness Plan: -Continue IV Vancomycin #2 and Unasyn #2 -04/27 SP ZOsyn x1 -f/u cx -Monitor CBC/CMP, temperatures -wound care per surgical team -cards, gen sx f/u -ICU care Thank you for this consultation. Will continue to follow along with you. Discussed with RN. Subjective Allergies: Coded Allergies: No Known Allergies (Unverified , 04/27/20) afebrile pt was transferred to ICU due to AFIB with RVR 150s no leukocytosis Cr improving Objective Last 24 Hour Vital Signs Date Time Temp Pulse Resp B/P (MAP) Pulse Ox O2 Delivery O2 Flow Rate FiO2 04/28/20 11:16 95 04/28/20 11:00 95 20 133/99 (110) 04/28/20 10:00 104 20 124/70 (88) 86 04/28/20 09:00 118 22 133/88 (103) 88 04/28/20 08:25 124 147/115 04/28/20 08:20 97.0 124 20 147/115 (126) 97 04/28/20 08:15 Room Air 04/28/20 08:01 111 04/28/20 07:50 111 04/28/20 04:00 115 04/28/20 04:00 96.8 110 20 133/82 (99) 97 04/28/20 00:00 98.8 102 18 123/76 (92) 95 04/28/20 00:00 107 04/27/20 21:00 Room Air 04/27/20 20:47 109 127/76 04/27/20 20:00 97.7 109 18 127/76 (93) 97 04/27/20 20:00 132 04/27/20 16:00 116 04/27/20 16:00 97.7 70 20 136/72 (93) 98 Height (Feet): 6 Height (Inches): 2.00 Weight (Pounds): 219 General Appearance: well appearing, no apparent distress, alert Head: normocephalic, atraumatic Neck: full range of motion, supple, no meningismus Respiratory: chest non-tender, lungs clear, normal breath sounds Cardiovascular regular rate, rhythm, no murmur Gastrointestinal: normal bowel sounds, non tender, no mass, no organomegaly, no bruit, non-distended Musculoskeletal: back normal, normal range of motion, gait/station normal, other - Bilateral lower extremity with lymphedema. Right lower extremity with erythema from the foot up to the proximal calf. There is ulceration with oozing serous fluid. Microbiology Date/Time Source Procedure Growth Status 04/27/20 01:40 Other Gram Stain - Final Resulted 04/27/20 01:40 Wound Culture - Preliminary Gram Negative Bacillus 1 Gram Positive Cocci Resulted Laboratory Tests Test 04/27/20 14:00 04/27/20 22:15 04/28/20 03:17 04/28/20 07:45 Troponin I 0.044 ng/mL (0.000-0.056) 0.058 ng/mL (0.000-0.056) 0.038 ng/mL (0.000-0.056) 0.041 ng/mL (0.000-0.056) White Blood Count 4.6 K/UL (4.8-10.8) L Red Blood Count 4.54 M/UL (4.70-6.10) L Hemoglobin 11.2 G/DL (14.2-18.0) L Hematocrit 37.1 % (42.0-52.0) L Mean Corpuscular Volume 82 FL (80-99) Mean Corpuscular Hemoglobin 24.7 PG (27.0-31.0) L Mean Corpuscular Hemoglobin Concent 30.3 G/DL (32.0-36.0) L Red Cell Distribution Width 16.6 % (11.6-14.8) H Platelet Count 214 K/UL (150-450) Mean Platelet Volume 11.1 FL (6.5-10.1) H Neutrophils (%) (Auto) 59.0 % (45.0-75.0) Lymphocytes (%) (Auto) 24.1 % (20.0-45.0) Monocytes (%) (Auto) 10.2 % (1.0-10.0) H Eosinophils (%) (Auto) 5.6 % (0.0-3.0) H Basophils (%) (Auto) 1.1 % (0.0-2.0) Sodium Level 137 MMOL/L (136-145) Potassium Level 4.1 MMOL/L (3.5-5.1) Chloride Level 107 MMOL/L (98-107) Carbon Dioxide Level 26 MMOL/L (21-32) Anion Gap 4 mmol/L (5-15) L Blood Urea Nitrogen 25 mg/dL (7-18) H Creatinine 1.4 MG/DL (0.55-1.30) H Estimat Glomerular Filtration Rate 59.3 mL/min (>60) Glucose Level 121 MG/DL (74-106) H Calcium Level 7.9 MG/DL (8.5-10.1) L Pro-B-Type Natriuretic Peptide 4785 pg/mL (0-125) H Random Vancomycin Level 14.2 ug/mL Phosphorus Level 4.0 MG/DL (2.5-4.9) Magnesium Level 1.7 MG/DL (1.8-2.4) L Thyroid Stimulating Hormone (TSH) 3.305 uiU/mL (0.358-3.740) Digoxin Level < 0.2 NG/ML (0.5-2.0) L Current Medications Medications (Trade) Dose Ordered Sig/Naa Route PRN Reason Start Time Stop Time Status Last Admin Dose Admin Ampicillin Sodium/ Sulbactam Sodium 3 gm/Sodium Chloride 110 ml @ 220 mls/hr Q6HR IVPB 04/27/20 18:00 05/04/20 17:59 04/28/20 05:39 Apixaban (Eliquis) 5 mg BID ORAL 04/27/20 18:00 07/26/20 17:59 04/28/20 09:37 Carvedilol (Coreg) 12.5 mg EVERY 12 HOURS ORAL 04/28/20 21:00 05/27/20 20:59 Dextrose/Sodium Chloride 1,000 ml @ 60 mls/hr [id number] IV 04/27/20 07:00 05/27/20 06:59 04/27/20 23:35 Digoxin (Lanoxin) 0.25 mg DAILY ORAL 04/29/20 09:00 07/28/20 08:59 Digoxin (Lanoxin) 0.5 mg ONCE IVP 04/28/20 11:00 04/28/20 13:30 04/28/20 11:16 Diltiazem HCl 125 ml @ 2.5 mls/hr Q24H IVPB 04/28/20 09:00 04/29/20 08:59 Furosemide (Lasix) 40 mg DAILY IV 04/28/20 09:00 05/28/20 08:59 04/28/20 08:25 Magnesium Oxide (Mag-Ox 400mg) 400 mg EVERY 12 HOURS ORAL 04/28/20 11:00 05/28/20 10:59 04/28/20 11:16 Morphine Sulfate (Morphine Sulfate) 2 mg Q4H PRN IVP Severe Pain (Pain Scale 7-10) 04/27/20 06:00 05/04/20 05:59 Vancomycin HCl ([facility] pharmacy to dose) 1 ea DAILY PRN MISC Per rx protocol 04/27/20 14:15 05/27/20 14:14 Sherron Leal M.D. Apr 28, 2020 12:13
--- NOTE | 2020-04-28 12:22 | CDS Physician Query ---
Clarification is required for compliance, coding accuracy, and to reflect severity of illness for this patient Dear Dr. Robert Avalos Date: 04/28/2020 CDS name: Tori Ford Clinical Documentation states: HNP: CHIEF COMPLAINT: Cellulitis right leg, possible arrhythmia.\BRIEF HISTORY: This is a 80-year-old homeless man, who presents to [facility] with about 1 week increased redness in the right leg, diagnosed with the above Vitals/labs on admission day: WBC 4.0, HR 128, Temp 98.8, RR 20 Treatment: IV vancomycin, ampicillin/sulbactam According to the clinical indications above, please indicate below the condition PHYSICIAN RESPONSE: [] Sepsis [] SIRS [] SIRS with organ dysfunction [] Septic Shock [] Not applicable [] Other: Present on Admission: Yes No Clinically Undetermined Physician signature Date Please also document in your Progress Notes and/or Discharge Summary and indicate if the condition was present on admission. NAKIA
--- NOTE | 2020-04-28 12:25 | CDS Physician Query ---
Clarification is required for compliance, coding accuracy, and to reflect severity of illness for this patient Dear Dr. 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: Tori Ford Clinical Documentation states: Cardio consult: REASON FOR THE CARDIAC CONSULTATION: Congestive heart failure and lower extremity edema, ejection fraction of 40% as well as atrial fibrillation with rapid ventricular response Echo: EF 40%, elevated left atrial pressure (Grade II) Treatment: IV lasix Please Clarify: Acuity [] Acute [] Chronic [] Acute on Chronic Type [] Systolic [] Diastolic [] Systolic & Diastolic (Combined) [] Other: Present on Admission: [] Yes [] No [] Clinically Undetermined Physician signature Date Please also document in your Progress Notes and/or Discharge Summary and indicate if the condition was present on admission. NAKIA
--- NOTE | 2020-04-28 13:45 | Surgery Progress Note ---
Surgery Progress Note Subjective Additional Comments Overnight patient went to A. fib was transferred to intensive care unit. States he is doing well and otherwise comfortable. Seen by cardiology. Labs noted. Exam stable. Micro noted. On antibiotics. Objective Last 24 Hour Vital Signs Date Time Temp Pulse Resp B/P (MAP) Pulse Ox O2 Delivery O2 Flow Rate FiO2 04/28/20 13:00 94 22 163/72 (102) 99 04/28/20 12:00 98.5 89 21 176/81 (112) 04/28/20 12:00 Room Air 04/28/20 11:16 95 04/28/20 11:15 104 04/28/20 11:00 95 20 133/99 (110) 04/28/20 10:00 104 20 124/70 (88) 86 04/28/20 09:00 118 22 133/88 (103) 88 04/28/20 08:25 124 147/115 04/28/20 08:20 97.0 124 20 147/115 (126) 97 04/28/20 08:15 Room Air 04/28/20 08:01 111 04/28/20 07:50 111 04/28/20 04:00 115 04/28/20 04:00 96.8 110 20 133/82 (99) 97 04/28/20 00:00 98.8 102 18 123/76 (92) 95 04/28/20 00:00 107 04/27/20 21:00 Room Air 04/27/20 20:47 109 127/76 04/27/20 20:00 97.7 109 18 127/76 (93) 97 04/27/20 20:00 132 04/27/20 16:00 116 04/27/20 16:00 97.7 70 20 136/72 (93) 98 I&O Intake and Output 04/27/20 04/28/20 19:00 07:00 Intake Total 1600 ml 400 ml Output Total 600 ml Balance 1600 ml -200 ml Intake Oral 1360 ml 400 ml IV Total 240 ml Output Urine Total 600 ml Dressing: saturated Cardiovascular: RSR Respiratory: clear Abdomen: soft, non-tender, present bowel sounds Extremities: edema, tenderness, no cyanosis, pulses, other Laboratory Tests Test 04/27/20 14:00 04/27/20 22:15 04/28/20 03:17 04/28/20 07:45 Troponin I 0.044 ng/mL (0.000-0.056) 0.058 ng/mL (0.000-0.056) 0.038 ng/mL (0.000-0.056) 0.041 ng/mL (0.000-0.056) White Blood Count 4.6 K/UL (4.8-10.8) L Red Blood Count 4.54 M/UL (4.70-6.10) L Hemoglobin 11.2 G/DL (14.2-18.0) L Hematocrit 37.1 % (42.0-52.0) L Mean Corpuscular Volume 82 FL (80-99) Mean Corpuscular Hemoglobin 24.7 PG (27.0-31.0) L Mean Corpuscular Hemoglobin Concent 30.3 G/DL (32.0-36.0) L Red Cell Distribution Width 16.6 % (11.6-14.8) H Platelet Count 214 K/UL (150-450) Mean Platelet Volume 11.1 FL (6.5-10.1) H Neutrophils (%) (Auto) 59.0 % (45.0-75.0) Lymphocytes (%) (Auto) 24.1 % (20.0-45.0) Monocytes (%) (Auto) 10.2 % (1.0-10.0) H Eosinophils (%) (Auto) 5.6 % (0.0-3.0) H Basophils (%) (Auto) 1.1 % (0.0-2.0) Sodium Level 137 MMOL/L (136-145) Potassium Level 4.1 MMOL/L (3.5-5.1) Chloride Level 107 MMOL/L (98-107) Carbon Dioxide Level 26 MMOL/L (21-32) Anion Gap 4 mmol/L (5-15) L Blood Urea Nitrogen 25 mg/dL (7-18) H Creatinine 1.4 MG/DL (0.55-1.30) H Estimat Glomerular Filtration Rate 59.3 mL/min (>60) Glucose Level 121 MG/DL (74-106) H Calcium Level 7.9 MG/DL (8.5-10.1) L Pro-B-Type Natriuretic Peptide 4785 pg/mL (0-125) H Random Vancomycin Level 14.2 ug/mL Phosphorus Level 4.0 MG/DL (2.5-4.9) Magnesium Level 1.7 MG/DL (1.8-2.4) L Thyroid Stimulating Hormone (TSH) 3.305 uiU/mL (0.358-3.740) Digoxin Level < 0.2 NG/ML (0.5-2.0) L Plan Problems: (1) Homelessness (2) Cellulitis of both lower extremities Assessment & Plan: Patient present on admission with bilateral lower extremity cellulitis and edema. Recent trauma and persistently has had some edema now with superimposed infection cellulitis. No abscess identified. Wounds noted with skin breakdown small ulcerations in bilateral lower extremities right worse than left. Seemingly fluid overloaded as well. No acute surgical intervention recommended this time. Will need local wound care. Wash wounds daily with normal saline. Apply Thera honey to open ulcerations followed by nonadherent dressing and wrap with Kerlix. Keep leg elevated above with pillow. Turn every 2 hours. Offload pressures. Nutritional optimization. Will follow with local care and recommendations. Thank you for letting participate patient's care. Antibiotics per infectious disease. Duplex Doppler interrogation of the veins in both lower extremity is performed from the common femoral vein to the popliteal vein. Normal venous compressibility demonstrated throughout. No thrombus identified. Waveform analysis shows good respiratory phasicity and augmentation. There is mild subcutaneous soft tissue edema. IMPRESSION: No evidence of deep venous thrombosis involving the lower extremities. Marquise Zamorano Apr 28, 2020 13:45
--- NOTE | 2020-04-28 14:00 | NUR ---
NURSE NOTES: Patient able to use the urinal at bedside. 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 No respiratory distress.
--- NOTE | 2020-04-28 15:23 | Cardiology Report ---
APPROVED REPORT EKG Measurement Heart [id number] <Conclusion> Atrial fibrillation with rapid ventricular response Left axis deviation Right bundle branch block Minimal voltage criteria for LVH, may be normal variant Abnormal ECG
--- NOTE | 2020-04-28 15:25 | Cardiology Report ---
APPROVED REPORT EKG Measurement Heart [id number] <Conclusion> Atrial fibrillation with rapid ventricular response Right bundle branch block Left anterior fascicular block Bifascicular block Abnormal ECG
--- NOTE | 2020-04-28 16:00 | NUR ---
NURSE NOTES: Bilateral lower extremities elevated with 2 pillows. Patient understood that it should be positioned that way to reduce swelling.
--- NOTE | 2020-04-28 18:00 | NUR ---
NURSE NOTES: Bed bath provided by 2 staff. 1 medium soft bowel movement noted.
[2020-04-28] MEDS: D5 1/2NS 1,000 ML IV SCH (18:51)
--- NOTE | 2020-04-28 19:00 | NUR ---
NURSE NOTES: Received patient and report from NORM Andrew. Patient is observed resting in bed and remains alert and oriented x3-4. Pt denies pain noted upon assessment. Pt is currently on RA with an O2 saturation of 98% noted at this time. No s/sx of acute distress noted. Bilateral lower lobe breath sounds noted to be diminished upon auscultation. Pt noted to be AFib on tele monitor with a HR of 93 and no s/sx of acute cardiac distress noted. R Hand 20g and R Hand 18g IV catheters noted which remains asymptomatic, intact and patent. D5 1/2NS currently infusing at 60mL/hr. VS obtained and noted to be stable at this time. Active bowel sounds noted in all four quadrants; abdomen remains round, soft and non-tender. Diagnostics reviewed at bedside. Skin remains intact other than bilateral lower extremity cellulitis and edema. Fall, Aspiration and Skin precautions observed. Pt remains resting in bed; Bed remains in the lowest position with the safety wheels engaged, call light within reach, side rails up x3 and bed alarm activated. Will continue plan of care. Will continue to monitor.
--- NOTE | 2020-04-28 19:10 | NUR ---
NURSE HAND-OFF REPORT: Latest Vital Signs: Temperature 98.7 , Pulse 97 , B/P 163 /76 , Respiratory Rate 22 , O2 SAT 98 , Room Air, O2 Flow Rate . Vital Sign Comment: EKG Rhythm: Atrial Fibrillation Rhythm change?: N Latest Saleh Fall Score: 60 Fall Risk: High Risk Safety Measures: Call light Within Reach, Bed Alarm Zone 1, Side Rails Side Rails x2, Bed position Low and Locked. Fall Precautions: Door Sign Patient Fall Education Report given to Emi Esparza RN.
[2020-04-28] MEDS: Carvedilol 12.5mg tab ORAL SCH (20:42)
--- NOTE | 2020-04-28 21:00 | NUR ---
NURSE NOTES: Bedside assessment performed. Pt currently denies pain. VS obtained and noted to be stable at this time. Pt remains calm, comfortable, clean and dry. No increased in WOB or SOB noted. No acute s/sx of cardiac distress noted. AFib remains controlled at this time. Pt requesting snack. Snack provided compliant with diet order. Fall, Aspiration and Skin precautions observed. Pt remains resting in bed; Bed remains in the lowest position with the safety wheels engaged, call light within reach, side rails up x3 and bed alarm activated. Will continue plan of care. Will continue to monitor.
--- NOTE | 2020-04-28 23:00 | NUR ---
NURSE NOTES: Bedside assessment performed, assessed pt with a FLACC scale of 0 noted. Pt noted to be sleeping comfortably at this time. VS obtained and noted to be stable at this time. No s/sx of acute distress noted. AFib remains controlled. Fall, Aspiration and Skin precautions observed. Pt remains resting in bed; Bed remains in the lowest position with the safety wheels engaged, call light within reach, side rails up x3 and bed alarm activated. Will continue plan of care. Will continue to monitor.
[2020-04-29] VITALS (24 sets, daily range): BP systolic 130–173; BP diastolic 64–110
[2020-04-29] MEDS: Ampicillin/Sulbactam Sod 3 GM in NS 110 ML IVPB SCH ×3 (00:04→13:33)
--- NOTE | 2020-04-29 01:00 | NUR ---
NURSE NOTES: Bedside assessment performed, assessed pt with a FLACC scale of 0 noted. Pt noted to be sleeping comfortably at this time. VS obtained and noted to be stable at this time. No s/sx of acute distress noted. AFib remains <100 and pt if free from s/sx of acute distress. Fall, Aspiration and Skin precautions observed. Pt remains resting in bed; Bed remains in the lowest position with the safety wheels engaged, call light within reach, side rails up x3 and bed alarm activated. Will continue plan of care. Will continue to monitor.
--- NOTE | 2020-04-29 03:00 | NUR ---
NURSE NOTES: Bedside assessment performed, assessed pt with a FLACC scale of 0 noted. Pt noted to be sleeping comfortably at this time. VS obtained and noted to be stable at this time. No s/sx of acute distress noted. AFib remains <100 and pt remains free from s/sx of acute distress. No adverse effects noted from previous medication administration including Unasyn. Pt noted to be mildly anxious regarding this vehicle being towed from parking lot; physiologically responsive to stressor with increase in HR up to 115 and RR of 28. Pt noted to be visibly more relaxed after confirming with security; no further intervention warranted at this time. Fall, Aspiration and Skin precautions observed. Pt remains resting in bed; Bed remains in the lowest position with the safety wheels engaged, call light within reach, side rails up x3 and bed alarm activated. Will continue plan of care. Will continue to monitor.
[2020-04-29 05:18] LABS: BASOPHILS % (AUTO) 0.7 % (0.0-2.0); EOSINOPHILS % (AUTO) 6.6 % (0.0-3.0); HEMATOCRIT 36.2 % (42.0-52.0); LYMPHOCYTES % (AUTO) 19.1 % (20.0-45.0); MEAN CORPUSCULAR VOLUME 79 FL (80-99); MONOCYTES % (AUTO) 9.8 % (1.0-10.0); NEUTROPHILS % (AUTO) 63.8 % (45.0-75.0); PLATELET COUNT 217 K/UL (150-450); RED BLOOD COUNT 4.58 M/UL (4.70-6.10); RED CELL DISTRIBUTION WIDTH 16.5 % (11.6-14.8); WHITE BLOOD COUNT 4.8 K/UL (4.8-10.8)
[2020-04-29 05:20] LABS: CALCIUM 7.8 MG/DL (8.5-10.1); CREATININE 1.5 MG/DL (0.55-1.30); POTASSIUM 3.6 MMOL/L (3.5-5.1)
--- NOTE | 2020-04-29 07:33 | NUR ---
NURSE HAND-OFF REPORT: Latest Vital Signs: Temperature 98.6 , Pulse 85 , B/P 162 /93 , Respiratory Rate 15 , O2 SAT 93 , Room Air, O2 Flow Rate . Vital Sign Comment: EKG Rhythm: Atrial Fibrillation Rhythm change?: N Notified?: N Response: Latest Saleh Fall Score: 60 Fall Risk: High Risk Safety Measures: Call light Within Reach, Bed Alarm Zone 2, Side Rails Side Rails x3, Bed position Low and Locked. Fall Precautions: Door Sign Patient Fall Education Report given to NORM Andrew.
--- NOTE | 2020-04-29 07:34 | NUR ---
NURSE NOTES: Received patient from Emi Esparza RN. Atrial fib noted in the monitor HR from 100-105. Patient is awake, verbal, oriented x 4. Able to verbalized needs. Denies any chest pain at this time. No respiratory distress. Remains room air, with oxygen saturation of 98% in the monitor. Patient on continuous IVF of D5 1/2 NS running at 60ml/hour on patient's Right hand g18. Regular breakfast tray offered. Bilateral lower limb swelling noted, redness and warm to touch. Educated patient to elevate, pillows placed. Call light placed within reach. Standard precautions observed. will continue plan of care.
[2020-04-29] MEDS ORDERED: Vancomycin 1.5gm/NS Premix IVPB ONE (08:00)
[2020-04-29] MEDS: Magnesium Oxide 400mg tab ORAL SCH ×2 (08:33→20:09)
[2020-04-29] MEDS: Carvedilol 12.5mg tab ORAL SCH (08:33)
[2020-04-29] MEDS: Eliquis 5mg tablet ORAL SCH ×2 (08:33→17:59)
--- NOTE | 2020-04-29 10:38 | NUR ---
NURSE NOTES: Dr. Rahamn at bedside. 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 Discussing plan of care with patient. With new orders to increase Coreg PO to 25mg PO every 12 hours. And patient is OK to transfer to SDU.
--- NOTE | 2020-04-29 11:04 | Cardiac Electrophysiology PN ---
Assessment/Plan Assessment/Plan 1. Congestive heart failure with ejection fraction of 40%. This is newly diagnosed cardiomyopathy. Increase Coreg to 25 bid and continue Digoxin 0.25 daily. Already on Lasix 40 iv daily At some point, the patient will need cardiac catheterization for further evaluation of his coronaries, especially in view of inferolateral ischemia on a 12-lead EKG. 2. Atrial fibrillation with rapid ventricular response. Increase Coreg to 25 bid and continue Digoxin 0.25 daily. Dig level 0.5 Already on anticoagulation with Eliquis 5 mg b.i.d. 3. Bilateral lower extremity cellulitis. The patient is on antibiotic per ID. ARGELIA RN OK to transfer to [facility] Subjective Subjective In ICU for atrial fib with RVR 150s.No CP or SOB.HR around 90 now. Objective Last 24 Hour Vital Signs Date Time Temp Pulse Resp B/P (MAP) Pulse Ox O2 Delivery O2 Flow Rate FiO2 04/29/20 10:00 84 17 147/64 (91) 94 04/29/20 09:00 81 15 163/91 (115) 97 04/29/20 08:35 95 04/29/20 08:33 95 156/82 04/29/20 08:00 Room Air 04/29/20 08:00 91 04/29/20 08:00 98.5 95 24 156/82 (106) 97 04/29/20 07:00 85 15 162/93 (116) 93 04/29/20 06:00 88 19 149/72 (97) 97 04/29/20 05:00 79 20 138/86 (103) 97 04/29/20 04:00 Room Air 04/29/20 04:00 98.6 83 20 159/85 (109) 98 04/29/20 03:06 87 04/29/20 03:00 80 14 136/76 (96) 95 04/29/20 02:00 80 19 152/79 (103) 98 04/29/20 01:00 81 16 137/68 (91) 97 04/29/20 00:02 99 04/29/20 00:00 98.6 80 16 130/93 (105) 95 04/29/20 00:00 Room Air 04/28/20 23:00 84 14 149/67 (94) 96 04/28/20 22:00 92 20 146/96 (113) 97 04/28/20 21:00 86 16 167/83 (111) 98 04/28/20 20:42 93 160/112 04/28/20 20:00 98.7 105 23 160/112 (128) 98 04/28/20 20:00 Room Air 04/28/20 19:15 116 04/28/20 19:00 97 22 163/76 (105) 04/28/20 18:00 100 24 185/67 (106) 98 04/28/20 17:34 186/81 04/28/20 17:30 93 23 186/81 (116) 98 04/28/20 17:00 102 25 168/82 (110) 98 04/28/20 16:00 Room Air 04/28/20 16:00 98.7 93 16 172/86 (114) 99 04/28/20 15:56 91 04/28/20 15:00 89 14 150/71 (97) 04/28/20 14:00 92 22 177/66 (103) 99 04/28/20 13:00 94 22 163/72 (102) 99 04/28/20 12:00 98.5 89 21 176/81 (112) 04/28/20 12:00 Room Air 04/28/20 11:16 95 04/28/20 11:15 104 Intake and Output 04/28/20 04/29/20 19:00 07:00 Intake Total 1465.0 ml 1230 ml Output Total 3900 ml 900 ml Balance -2435.0 ml 330 ml Intake Oral 480 ml 240 ml IV Total 985.0 ml 990 ml Output Urine Total 3900 ml 900 ml # Bowel Movements 2 Laboratory Tests Test 04/29/20 03:50 White Blood Count 4.8 K/UL (4.8-10.8) Red Blood Count 4.58 M/UL (4.70-6.10) L Hemoglobin 11.0 G/DL (14.2-18.0) L Hematocrit 36.2 % (42.0-52.0) L Mean Corpuscular Volume 79 FL (80-99) L Mean Corpuscular Hemoglobin 24.0 PG (27.0-31.0) L Mean Corpuscular Hemoglobin Concent 30.4 G/DL (32.0-36.0) L Red Cell Distribution Width 16.5 % (11.6-14.8) H Platelet Count 217 K/UL (150-450) Mean Platelet Volume 10.8 FL (6.5-10.1) H Neutrophils (%) (Auto) 63.8 % (45.0-75.0) Lymphocytes (%) (Auto) 19.1 % (20.0-45.0) L Monocytes (%) (Auto) 9.8 % (1.0-10.0) Eosinophils (%) (Auto) 6.6 % (0.0-3.0) H Basophils (%) (Auto) 0.7 % (0.0-2.0) Sodium Level 141 MMOL/L (136-145) Potassium Level 3.6 MMOL/L (3.5-5.1) Chloride Level 108 MMOL/L (98-107) H Carbon Dioxide Level 27 MMOL/L (21-32) Anion Gap 6 mmol/L (5-15) Blood Urea Nitrogen 23 mg/dL (7-18) H Creatinine 1.5 MG/DL (0.55-1.30) H Estimat Glomerular Filtration Rate 54.7 mL/min (>60) Glucose Level 147 MG/DL (74-106) H Calcium Level 7.8 MG/DL (8.5-10.1) L Magnesium Level 1.8 MG/DL (1.8-2.4) Random Vancomycin Level 13.4 ug/mL Digoxin Level 0.5 NG/ML (0.5-2.0) Microbiology Date/Time Source Procedure Growth Status 04/27/20 01:40 Other Gram Stain - Final Resulted 04/27/20 01:40 Wound Culture - Preliminary Gram Negative Bacillus 1 Gram Positive Cocci Resulted Objective NECK: mild JVD. LUNGS: Decreased breath sounds. CARDIOVASCULAR: Irregularly irregular S1 and S2 with no gallop. ABDOMEN: Soft. EXTREMITIES: Bilateral lower extremity edema and cellulitis. Adrian Rahman MD Apr 29, 2020 11:04
--- NOTE | 2020-04-29 11:50 | NUR ---
NURSE NOTES: Dr. Avalos at bedside. Discussing plan of care with patient.
[2020-04-29] MEDS ORDERED: D5 1/2NS 1000ml IV ONE (12:10)
[2020-04-29] MEDS ORDERED: Tubing IV Secondary IV ONE (12:10)
--- NOTE | 2020-04-29 12:30 | General Progress Note ---
Subjective Constitutional: Reports: weakness Allergies: Coded Allergies: No Known Allergies (Unverified , 04/27/20) All Systems: reviewed and negative except above Subjective calm in icu Objective Last 24 Hour Vital Signs Date Time Temp Pulse Resp B/P (MAP) Pulse Ox O2 Delivery O2 Flow Rate FiO2 04/29/20 12:00 95 04/29/20 12:00 92 26 150/71 (97) 98 04/29/20 11:00 79 16 163/97 (119) 97 04/29/20 10:00 84 17 147/64 (91) 94 04/29/20 09:00 81 15 163/91 (115) 97 04/29/20 08:35 95 04/29/20 08:33 95 156/82 04/29/20 08:00 Room Air 04/29/20 08:00 91 04/29/20 08:00 98.5 95 24 156/82 (106) 97 04/29/20 07:00 85 15 162/93 (116) 93 04/29/20 06:00 88 19 149/72 (97) 97 04/29/20 05:00 79 20 138/86 (103) 97 04/29/20 04:00 Room Air 04/29/20 04:00 98.6 83 20 159/85 (109) 98 04/29/20 03:06 87 04/29/20 03:00 80 14 136/76 (96) 95 04/29/20 02:00 80 19 152/79 (103) 98 04/29/20 01:00 81 16 137/68 (91) 97 04/29/20 00:02 99 04/29/20 00:00 98.6 80 16 130/93 (105) 95 04/29/20 00:00 Room Air 04/28/20 23:00 84 14 149/67 (94) 96 04/28/20 22:00 92 20 146/96 (113) 97 04/28/20 21:00 86 16 167/83 (111) 98 04/28/20 20:42 93 160/112 04/28/20 20:00 98.7 105 23 160/112 (128) 98 04/28/20 20:00 Room Air 04/28/20 19:15 116 04/28/20 19:00 97 22 163/76 (105) 04/28/20 18:00 100 24 185/67 (106) 98 04/28/20 17:34 186/81 04/28/20 17:30 93 23 186/81 (116) 98 04/28/20 17:00 102 25 168/82 (110) 98 04/28/20 16:00 Room Air 04/28/20 16:00 98.7 93 16 172/86 (114) 99 04/28/20 15:56 91 04/28/20 15:00 89 14 150/71 (97) 04/28/20 14:00 92 22 177/66 (103) 99 04/28/20 13:00 94 22 163/72 (102) 99 Intake and Output 04/28/20 04/29/20 19:00 07:00 Intake Total 1465.0 ml 1230 ml Output Total 3900 ml 900 ml Balance -2435.0 ml 330 ml Intake Oral 480 ml 240 ml IV Total 985.0 ml 990 ml Output Urine Total 3900 ml 900 ml # Bowel Movements 2 Laboratory Tests 04/29/20 03:50: White Blood Count 4.8, Red Blood Count 4.58L, Hemoglobin 11.0L, Hematocrit 36.2L , Mean Corpuscular Volume 79L, Mean Corpuscular Hemoglobin 24.0L, Mean Corpuscular Hemoglobin Concent 30.4L, Red Cell Distribution Width 16.5H, Platelet Count 217, Mean Platelet Volume 10.8H, Neutrophils (%) (Auto) 63.8, Lymphocytes (%) (Auto) 19.1L, Monocytes (%) (Auto) 9.8, Eosinophils (%) (Auto) 6.6H, Basophils (%) (Auto) 0.7, Sodium Level 141, Potassium Level 3.6, Chloride Level 108H, Carbon Dioxide Level 27, Anion Gap 6, Blood Urea Nitrogen 23H, Creatinine 1.5H, Estimat Glomerular Filtration Rate 54.7, Glucose Level 147H, Calcium Level 7.8L, Magnesium Level 1.8, Random Vancomycin Level 13.4, Digoxin Level 0.5 Height (Feet): 6 Height (Inches): 2.00 Weight (Pounds): 219 General Appearance: lethargic EENT: normal ENT inspection Neck: normal alignment Cardiovascular: normal peripheral pulses, normal rate, regular rhythm Respiratory/Chest: chest wall non-tender, lungs clear, normal breath sounds Abdomen: normal bowel sounds, non tender, soft Extremities: normal inspection Edema: no edema noted Arm (L), no edema noted Arm (R), no edema noted Leg (L), no edema noted Leg (R), no edema noted Pedal (L), no edema noted Pedal (R), no edema noted Generalized Neurologic: responsive, motor weakness Skin: normal pigmentation, warm/dry Assessment/Plan Problem List: (1) Afib ICD Codes: I48.91 - Unspecified atrial fibrillation SNOMED: 49617590 (2) Homelessness ICD Codes: Z59.0 - Homelessness; L03.116 - Cellulitis of left lower limb SNOMED: 13205263 (3) Cellulitis of both lower extremities ICD Codes: L03.115 - Cellulitis of right lower limb; L03.116 - Cellulitis of left lower limb SNOMED: 503449259 Status: stable, progressing Assessment/Plan: cardio f/u wound care abx cbc bmp am sdu if clear Robert Avalos DO Apr 29, 2020 12:29
--- NOTE | 2020-04-29 13:00 | NUR ---
NURSE NOTES: Tolerated lunch meal. Able to feed self. Will continue to monitor.
--- NOTE | 2020-04-29 13:47 | Infectious Diseases Prog Note ---
Assessment/Plan Assessment: B/l LE cellulitis- R>L; improving -wound cx GBS, S. marcences (R ancef; otherwise S) Afebrile No leukocytosis CATERINA vs CKD; improving Afib w/ RVR homelessness Plan: -Switch IV Vancomycin #3 and Unasyn #3 to Ceftriaxone -04/27 SP ZOsyn x1 -f/u cx -Monitor CBC/CMP, temperatures -wound care per surgical team -cards, gen sx f/u -ICU care Thank you for this consultation. Will continue to follow along with you. Discussed with RN. Subjective Allergies: Coded Allergies: No Known Allergies (Unverified , 04/27/20) afebrile HR controlled now no leukocytosis Cr improving Objective Last 24 Hour Vital Signs Date Time Temp Pulse Resp B/P (MAP) Pulse Ox O2 Delivery O2 Flow Rate FiO2 04/29/20 13:00 87 16 139/72 (94) 95 04/29/20 12:00 95 04/29/20 12:00 92 26 150/71 (97) 98 04/29/20 12:00 Room Air 04/29/20 11:00 79 16 163/97 (119) 97 04/29/20 10:00 84 17 147/64 (91) 94 04/29/20 09:00 81 15 163/91 (115) 97 04/29/20 08:35 95 04/29/20 08:33 95 156/82 04/29/20 08:00 Room Air 04/29/20 08:00 91 04/29/20 08:00 98.5 95 24 156/82 (106) 97 04/29/20 07:00 85 15 162/93 (116) 93 04/29/20 06:00 88 19 149/72 (97) 97 04/29/20 05:00 79 20 138/86 (103) 97 04/29/20 04:00 Room Air 04/29/20 04:00 98.6 83 20 159/85 (109) 98 04/29/20 03:06 87 04/29/20 03:00 80 14 136/76 (96) 95 04/29/20 02:00 80 19 152/79 (103) 98 04/29/20 01:00 81 16 137/68 (91) 97 04/29/20 00:02 99 04/29/20 00:00 98.6 80 16 130/93 (105) 95 04/29/20 00:00 Room Air 04/28/20 23:00 84 14 149/67 (94) 96 04/28/20 22:00 92 20 146/96 (113) 97 04/28/20 21:00 86 16 167/83 (111) 98 04/28/20 20:42 93 160/112 04/28/20 20:00 98.7 105 23 160/112 (128) 98 04/28/20 20:00 Room Air 04/28/20 19:15 116 04/28/20 19:00 97 22 163/76 (105) 04/28/20 18:00 100 24 185/67 (106) 98 04/28/20 17:34 186/81 04/28/20 17:30 93 23 186/81 (116) 98 04/28/20 17:00 102 25 168/82 (110) 98 04/28/20 16:00 Room Air 04/28/20 16:00 98.7 93 16 172/86 (114) 99 04/28/20 15:56 91 04/28/20 15:00 89 14 150/71 (97) 04/28/20 14:00 92 22 177/66 (103) 99 Height (Feet): 6 Height (Inches): 2.00 Weight (Pounds): 219 General Appearance: well appearing, no apparent distress, alert Head: normocephalic, atraumatic Neck: full range of motion, supple Respiratory: chest non-tender, lungs clear, normal breath sounds Cardiovascular regular rate, rhythm, no murmur Gastrointestinal: normal bowel sounds, non tender, no mass, no organomegaly, no bruit, non-distended Musculoskeletal: back normal, normal range of motion, gait/station normal, other - Bilateral lower extremity with lymphedema. Right lower extremity with erythema from the foot up to the proximal calf. There is ulceration with oozing serous fluid. Microbiology Date/Time Source Procedure Growth Status 04/27/20 01:40 Other Gram Stain - Final Resulted 04/27/20 01:40 Wound Culture - Preliminary Serratia Marcescens Strep Agalactiae Group B Resulted Laboratory Tests Test 04/29/20 03:50 White Blood Count 4.8 K/UL (4.8-10.8) Red Blood Count 4.58 M/UL (4.70-6.10) L Hemoglobin 11.0 G/DL (14.2-18.0) L Hematocrit 36.2 % (42.0-52.0) L Mean Corpuscular Volume 79 FL (80-99) L Mean Corpuscular Hemoglobin 24.0 PG (27.0-31.0) L Mean Corpuscular Hemoglobin Concent 30.4 G/DL (32.0-36.0) L Red Cell Distribution Width 16.5 % (11.6-14.8) H Platelet Count 217 K/UL (150-450) Mean Platelet Volume 10.8 FL (6.5-10.1) H Neutrophils (%) (Auto) 63.8 % (45.0-75.0) Lymphocytes (%) (Auto) 19.1 % (20.0-45.0) L Monocytes (%) (Auto) 9.8 % (1.0-10.0) Eosinophils (%) (Auto) 6.6 % (0.0-3.0) H Basophils (%) (Auto) 0.7 % (0.0-2.0) Sodium Level 141 MMOL/L (136-145) Potassium Level 3.6 MMOL/L (3.5-5.1) Chloride Level 108 MMOL/L (98-107) H Carbon Dioxide Level 27 MMOL/L (21-32) Anion Gap 6 mmol/L (5-15) Blood Urea Nitrogen 23 mg/dL (7-18) H Creatinine 1.5 MG/DL (0.55-1.30) H Estimat Glomerular Filtration Rate 54.7 mL/min (>60) Glucose Level 147 MG/DL (74-106) H Calcium Level 7.8 MG/DL (8.5-10.1) L Magnesium Level 1.8 MG/DL (1.8-2.4) Random Vancomycin Level 13.4 ug/mL Digoxin Level 0.5 NG/ML (0.5-2.0) Current Medications Medications (Trade) Dose Ordered Sig/Naa Route PRN Reason Start Time Stop Time Status Last Admin Dose Admin Acetaminophen (Tylenol) 650 mg Q6H PRN ORAL Mild Pain (Pain Scale 1-3) 04/28/20 14:45 05/28/20 14:44 Acetaminophen (Tylenol) 650 mg Q6H PRN ORAL Temp >100.5 04/28/20 14:45 05/28/20 14:44 Ampicillin Sodium/ Sulbactam Sodium 3 gm/Sodium Chloride 110 ml @ 220 mls/hr Q6HR IVPB 04/27/20 18:00 05/04/20 17:59 04/29/20 13:33 Apixaban (Eliquis) 5 mg BID ORAL 04/27/20 18:00 07/26/20 17:59 04/29/20 08:33 Carvedilol (Coreg) 25 mg EVERY 12 HOURS ORAL 04/29/20 21:00 05/29/20 20:59 Clonidine HCl (Catapres Tab) 0.1 mg Q2H PRN ORAL For High Blood Pressure 04/28/20 16:15 07/27/20 16:14 04/28/20 17:34 Digoxin (Lanoxin) 0.25 mg DAILY ORAL 04/29/20 09:00 07/28/20 08:59 04/29/20 08:35 Furosemide (Lasix) 40 mg DAILY IV 04/28/20 09:00 05/28/20 08:59 04/29/20 08:33 Magnesium Oxide (Mag-Ox 400mg) 400 mg EVERY 12 HOURS ORAL 04/28/20 11:00 05/28/20 10:59 04/29/20 08:33 Morphine Sulfate (Morphine Sulfate) 2 mg Q4H PRN IVP Severe Pain (Pain Scale 7-10) 04/27/20 06:00 05/04/20 05:59 Vancomycin HCl (Vanco pharmacy to dose) 1 ea DAILY PRN MISC Per rx protocol 04/27/20 14:15 05/27/20 14:14 Vancomycin/Sodium Chloride 275 ml @ 137.5 mls/ hr Q24H IVPB 04/30/20 09:00 05/05/20 08:59 Sherron Leal M.D. Apr 29, 2020 13:47
--- NOTE | 2020-04-29 16:32 | Surgery Progress Note ---
Surgery Progress Note Subjective Additional Comments no acute events labs noted exam improved cellulitis notable on support Objective Last 24 Hour Vital Signs Date Time Temp Pulse Resp B/P (MAP) Pulse Ox O2 Delivery O2 Flow Rate FiO2 04/29/20 16:00 81 04/29/20 16:00 97.6 85 16 148/105 (119) 98 04/29/20 16:00 Room Air 04/29/20 15:00 85 18 144/96 (112) 97 04/29/20 14:00 82 20 156/70 (98) 98 04/29/20 13:00 87 16 139/72 (94) 95 04/29/20 12:00 95 04/29/20 12:00 92 26 150/71 (97) 98 04/29/20 12:00 Room Air 04/29/20 11:00 79 16 163/97 (119) 97 04/29/20 10:00 84 17 147/64 (91) 94 04/29/20 09:00 81 15 163/91 (115) 97 04/29/20 08:35 95 04/29/20 08:33 95 156/82 04/29/20 08:00 Room Air 04/29/20 08:00 91 04/29/20 08:00 98.5 95 24 156/82 (106) 97 04/29/20 07:00 85 15 162/93 (116) 93 04/29/20 06:00 88 19 149/72 (97) 97 04/29/20 05:00 79 20 138/86 (103) 97 04/29/20 04:00 Room Air 04/29/20 04:00 98.6 83 20 159/85 (109) 98 04/29/20 03:06 87 04/29/20 03:00 80 14 136/76 (96) 95 04/29/20 02:00 80 19 152/79 (103) 98 04/29/20 01:00 81 16 137/68 (91) 97 04/29/20 00:02 99 04/29/20 00:00 98.6 80 16 130/93 (105) 95 04/29/20 00:00 Room Air 04/28/20 23:00 84 14 149/67 (94) 96 04/28/20 22:00 92 20 146/96 (113) 97 04/28/20 21:00 86 16 167/83 (111) 98 04/28/20 20:42 93 160/112 04/28/20 20:00 98.7 105 23 160/112 (128) 98 04/28/20 20:00 Room Air 04/28/20 19:15 116 04/28/20 19:00 97 22 163/76 (105) 04/28/20 18:00 100 24 185/67 (106) 98 04/28/20 17:34 186/81 04/28/20 17:30 93 23 186/81 (116) 98 04/28/20 17:00 102 25 168/82 (110) 98 I&O Intake and Output 04/28/20 04/29/20 19:00 07:00 Intake Total 1465.0 ml 1230 ml Output Total 3900 ml 900 ml Balance -2435.0 ml 330 ml Intake Oral 480 ml 240 ml IV Total 985.0 ml 990 ml Output Urine Total 3900 ml 900 ml # Bowel Movements 2 Dressing: saturated Cardiovascular: RSR Respiratory: decreased breath sounds Abdomen: soft, non-tender, present bowel sounds Extremities: edema, tenderness, no cyanosis Laboratory Tests Test 04/29/20 03:50 White Blood Count 4.8 K/UL (4.8-10.8) Red Blood Count 4.58 M/UL (4.70-6.10) L Hemoglobin 11.0 G/DL (14.2-18.0) L Hematocrit 36.2 % (42.0-52.0) L Mean Corpuscular Volume 79 FL (80-99) L Mean Corpuscular Hemoglobin 24.0 PG (27.0-31.0) L Mean Corpuscular Hemoglobin Concent 30.4 G/DL (32.0-36.0) L Red Cell Distribution Width 16.5 % (11.6-14.8) H Platelet Count 217 K/UL (150-450) Mean Platelet Volume 10.8 FL (6.5-10.1) H Neutrophils (%) (Auto) 63.8 % (45.0-75.0) Lymphocytes (%) (Auto) 19.1 % (20.0-45.0) L Monocytes (%) (Auto) 9.8 % (1.0-10.0) Eosinophils (%) (Auto) 6.6 % (0.0-3.0) H Basophils (%) (Auto) 0.7 % (0.0-2.0) Sodium Level 141 MMOL/L (136-145) Potassium Level 3.6 MMOL/L (3.5-5.1) Chloride Level 108 MMOL/L (98-107) H Carbon Dioxide Level 27 MMOL/L (21-32) Anion Gap 6 mmol/L (5-15) Blood Urea Nitrogen 23 mg/dL (7-18) H Creatinine 1.5 MG/DL (0.55-1.30) H Estimat Glomerular Filtration Rate 54.7 mL/min (>60) Glucose Level 147 MG/DL (74-106) H Calcium Level 7.8 MG/DL (8.5-10.1) L Magnesium Level 1.8 MG/DL (1.8-2.4) Random Vancomycin Level 13.4 ug/mL Digoxin Level 0.5 NG/ML (0.5-2.0) Plan Problems: (1) Homelessness (2) Cellulitis of both lower extremities Assessment & Plan: Patient present on admission with bilateral lower extremity cellulitis and edema. Recent trauma and persistently has had some edema now with superimposed infection cellulitis. No abscess identified. Wounds noted with skin breakdown small ulcerations in bilateral lower extremities right worse than left. Seemingly fluid overloaded as well. No acute surgical intervention recommended this time. Will need local wound care. Wash wounds daily with normal saline. Apply Thera honey to open ulcerations followed by nonadherent dressing and wrap with Kerlix. Keep leg elevated above with pillow. Turn every 2 hours. Offload pressures. Nutritional optimization. Will follow with local care and recommendations. Thank you for letting participate patient's care. Antibiotics per infectious disease. Duplex Doppler interrogation of the veins in both lower extremity is performed from the common femoral vein to the popliteal vein. Normal venous compressibility demonstrated throughout. No thrombus identified. Waveform analysis shows good respiratory phasicity and augmentation. There is mild subcutaneous soft tissue edema. IMPRESSION: No evidence of deep venous thrombosis involving the lower extremities. Marquise Zamorano Apr 29, 2020 16:32
--- NOTE | 2020-04-29 18:30 | NUR ---
NURSE HAND-OFF REPORT: Latest Vital Signs: Temperature 97.6 , Pulse 94 , B/P 163 /90 , Respiratory Rate 25 , O2 SAT 99 , Room Air, O2 Flow Rate . EKG Rhythm: Atrial Fibrillation Rhythm change?: N Latest Saleh Fall Score: 60 Fall Risk: High Risk Safety Measures: Call light Within Reach, Bed Alarm Zone 2, Side Rails Side Rails x3, Bed position Low and Locked. Fall Precautions: Door Sign Patient Fall Education Report given to Mihaela Souza RN.
--- NOTE | 2020-04-29 18:31 | NUR ---
NURSE NOTES: RECEIVED REPORT FROM JULIUS. PT IN BED, AWAKE. A/OX4. NO C/O PAIN. BP ELEVATED WILL CONTINUE TO MONITOR. NO C/O PAIN. PT CLEAN, REFUSES DINNER UNTIL LATER. URINAL AT BEDSIDE. CALL LIGHT IN REACH, BED ALARM ON. WILL CONTINUE TO IMPLEMENT.
--- NOTE | 2020-04-29 19:10 | NUR ---
NURSE HAND-OFF REPORT: Latest Vital Signs: Temperature 97.6 , Pulse 120 , B/P 160 /90 , Respiratory Rate 28 , O2 SAT 98 , Room Air, O2 Flow Rate . Vital Sign Comment: EKG Rhythm: Atrial Fibrillation Rhythm change?: N Notified?: Candace Dobbins MD Response: Latest Saleh Fall Score: 60 Fall Risk: High Risk Safety Measures: Call light Within Reach, Bed Alarm Zone 2, Side Rails Side Rails x3, Bed position Low and Locked. Fall Precautions: Door Sign Patient Fall Education Report given to .Jazzy Rosas ENDORSED TRANSFER, ROOM [id number]
--- NOTE | 2020-04-29 19:11 | NUR ---
NURSE NOTES: Patient received from NORM Chairez. patient awake alert oriented x3, respirations even and unlabored on room air. patient denies pain at this time. BP160/90 HR120 afib on monitor. right forearm #22 TKO asymptomatic. BLE cellulitis noted with redness, otherwise skin intact. patient repositioned self. bed locked lowest position call light within reach.
[2020-04-29] MEDS: cefTRIAXone 1 GM in D5W 55 ML IVPB SCH (20:08)
[2020-04-29] MEDS: Carvedilol 25mg Tab ORAL SCH (20:09)
--- NOTE | 2020-04-29 22:00 | NUR ---
NURSE NOTES: patient awake alert oriented x3, respirations even and unlabored on room air. patient denies pain at this time. BP172/93 HR83 afib on monitor and afebrile, prn clonidine administered. right forearm #22 TKO asymptomatic. patient able to use urinal at bedside with yellow urine noted. patient repositioned self. BLE dressing clean and intact. bed locked lowest position call light within reach.
--- NOTE | 2020-04-29 22:51 | NUR ---
NURSE HAND-OFF REPORT: Important Events on Shift:prn clonidine administered Patient Status: Diet: regular Pending Orders: Pending Results/Labs: Pending MD notification: Latest Vital Signs: Temperature 98.4 , Pulse 83 , B/P 172 /93 , Respiratory Rate 22 , O2 SAT 96 , Room Air, O2 Flow Rate . Vital Sign Comment: WNL EKG Rhythm: Atrial Fibrillation Rhythm change?: N Notified?: Candace Dobbins MD Response: Latest Saleh Fall Score: 60 Fall Risk: High Risk Safety Measures: Call light Within Reach, Bed Alarm Zone 2, Side Rails Side Rails x3, Bed position Low and Locked. Fall Precautions: Door Sign Patient Fall Education Report given to Monika Rai RN.
--- NOTE | 2020-04-29 22:52 | NUR ---
NURSE NOTES: received pt from Rachel ZHENG., from ICU. belonging list checked with pt and Rachel ZHENG. pt states no pain at this time. no SOB noted with RA, O2sat is at 98%. pt is AOx 4. no active bleeding noted. pt bilateral lower extremities cellulitis noted. right hand 22g IV site intact, clean, and patent. bed at the lowest position, alarmed, and locked. will continue to monitor pt with plan of care.
--- NOTE | 2020-04-29 23:08 | NUR ---
NURSE NOTES: oral care given, whole bed changed with new cover sheets. call light within reach. will continue to monitor. pt is watching TV at this time. pt states pt is comfortable at this moment
--- NOTE | 2020-04-29 23:53 | NUR ---
NURSE NOTES: pt cardiac rythm shows A.Fib with BBB, pt is resting comfortably. VS within normal range. pt had A.Fib with BBB from ICU as well. will continue to monitor pt.
[2020-04-30] VITALS (8 sets, daily range): BP systolic 132–172; BP diastolic 64–90
--- NOTE | 2020-04-30 04:53 | NUR ---
NURSE NOTES: pt is sleeping comfortably at this time. call light within reach. will continue to monitor pt
[2020-04-30 04:54] LABS: BASOPHILS % (AUTO) 0.9 % (0.0-2.0); EOSINOPHILS % (AUTO) 5.4 % (0.0-3.0); HEMATOCRIT 38.5 % (42.0-52.0); HEMOGLOBIN 11.3 G/DL (14.2-18.0); LYMPHOCYTES % (AUTO) 20.1 % (20.0-45.0); MEAN CORPUSCULAR VOLUME 81 FL (80-99); MONOCYTES % (AUTO) 8.4 % (1.0-10.0); NEUTROPHILS % (AUTO) 65.2 % (45.0-75.0); PLATELET COUNT 224 K/UL (150-450); RED BLOOD COUNT 4.75 M/UL (4.70-6.10); RED CELL DISTRIBUTION WIDTH 16.3 % (11.6-14.8); WHITE BLOOD COUNT 4.9 K/UL (4.8-10.8)
[2020-04-30 05:23] LABS: CALCIUM 8.1 MG/DL (8.5-10.1); CREATININE 1.4 MG/DL (0.55-1.30); POTASSIUM 3.6 MMOL/L (3.5-5.1)
--- NOTE | 2020-04-30 07:20 | NUR ---
NURSE HAND-OFF REPORT: Important Events on Shift:transferred from ICU, need to follow up with mag 1.6 and digioxin 0.4 (Lab) Patient Status: stable Diet: regular Pending Orders: n/a Pending Results/Labs:n/a Pending MD notification:n/a Latest Vital Signs: Temperature 98.1 , Pulse 87 , B/P 144 /89 , Respiratory Rate 18 , O2 SAT 95 , Room Air, O2 Flow Rate . Vital Sign Comment: stable EKG Rhythm: Atrial Fibrillation with BBB Rhythm change?: N Notified?: N Response: Latest Saleh Fall Score: 60 Fall Risk: High Risk Safety Measures: Call light Within Reach, Bed Alarm Zone 2, Side Rails Side Rails x3, Bed position Low and Locked. Fall Precautions: Door Sign Patient Fall Education Report given to Prema ZHENG
--- NOTE | 2020-04-30 07:30 | NUR ---
NURSE NOTES: Received pt from RN So Ri. pt is awake and alert, pt is in RA, no SOB or acute respiratory distress noted. pt is on continues heart monitoring. pt has intact iv access RH 22G SL. no complain of pain at this moment. pt is eating breakfast by observation. Dr Avalos is aware about MG 1.6, waiting to call back. all needs attended, bed is locked and is in the lowest position. call light within easy reach. will continue to monitor.
--- NOTE | 2020-04-30 08:27 | NUR ---
CASE MANAGEMENT:REVIEW 04/30/20 SI: LE CELLULITIS. RAPID AFIB. TROPONIN LEAK VS: T 97.7 HR 104 RR 20 B/P 172/90 SATS 96% ON RA LABS: BUN 20 CR 1.4 GLU 110 CA 8.1 IS: IV LASIX QD IV VANCOMYCIN QD IV AMPICILLIN Q6HRS IVF@60/HR COREG PO Q12H ELIQUIS PO BID : SDU DCP: ARU
[2020-04-30] MEDS: Carvedilol 25mg Tab ORAL SCH ×2 (08:47→20:05)
[2020-04-30] MEDS: Magnesium Oxide 400mg tab ORAL SCH ×3 (08:47→20:17)
[2020-04-30] MEDS: Eliquis 5mg tablet ORAL SCH ×2 (08:47→17:12)
--- NOTE | 2020-04-30 08:49 | NUR ---
DISCHARGE PLANNING: NOTE CLINICALS FAXED TO [facility] FOR REVIEW Addendum: 04/30/20 at 1232 by Kristi Castillo CM CALL BACK RECEIVED FROM [facility] REFERRAL HAS BEEN RECEIVED. PT EVAL PENDING Addendum: 04/30/20 at 1233 by Kristi Castillo CM COVID SWAB NEEDED AND REQUESTED Addendum: 04/30/20 at 1651 by Kristi Castillo CM COVID SWAB PENDING PT EVAL COMPLETED AND FAXED TO [facility] Addendum: 04/30/20 at 1718 by Kristi Castillo CM COVID RESULTS FAXED TO [facility]
[2020-04-30] MEDS ORDERED: Vancomycin 1.5gm/NS Premix IVPB SCH (09:00)
--- NOTE | 2020-04-30 09:22 | General Progress Note ---
Subjective Constitutional: Reports: weakness Allergies: Coded Allergies: No Known Allergies (Unverified , 04/27/20) All Systems: reviewed and negative except above Subjective calm in sdu Objective Last 24 Hour Vital Signs Date Time Temp Pulse Resp B/P (MAP) Pulse Ox O2 Delivery O2 Flow Rate FiO2 04/30/20 08:47 104 172/90 04/30/20 08:47 172/90 04/30/20 08:47 104 04/30/20 08:00 97.7 104 20 172/90 (117) 96 04/30/20 04:00 98.1 87 18 144/89 (107) 95 04/30/20 04:00 Room Air 04/30/20 03:43 96 04/30/20 00:00 Room Air 04/30/20 00:00 97.7 78 18 155/64 (94) 97 04/30/20 00:00 96 04/29/20 23:00 98.0 88 18 155/75 (101) 98 04/29/20 22:13 172/93 04/29/20 22:00 83 22 172/93 (119) 96 04/29/20 21:00 92 22 135/107 (116) 96 04/29/20 20:09 114 173/110 04/29/20 20:00 91 04/29/20 20:00 Room Air 04/29/20 20:00 98.4 100 21 173/110 (131) 98 04/29/20 19:00 120 28 160/90 (113) 98 04/29/20 18:00 94 25 163/90 (114) 99 04/29/20 17:00 88 27 161/78 (105) 100 04/29/20 16:00 81 04/29/20 16:00 97.6 85 16 148/105 (119) 98 04/29/20 16:00 Room Air 04/29/20 15:00 85 18 144/96 (112) 97 04/29/20 14:00 82 20 156/70 (98) 98 04/29/20 13:00 87 16 139/72 (94) 95 04/29/20 12:00 95 04/29/20 12:00 92 26 150/71 (97) 98 04/29/20 12:00 Room Air 04/29/20 11:00 79 16 163/97 (119) 97 04/29/20 10:00 84 17 147/64 (91) 94 Intake and Output 04/29/20 04/30/20 19:00 07:00 Intake Total 815.0 ml 415 ml Output Total 1770 ml 1850 ml Balance -955.0 ml -1435 ml Intake Oral 360 ml 360 ml IV Total 455.0 ml 55 ml Output Urine Total 1770 ml 1850 ml # Voids 100 3 # Bowel Movements 2 2 Laboratory Tests 04/30/20 03:15: White Blood Count 4.9, Red Blood Count 4.75, Hemoglobin 11.3L, Hematocrit 38.5L, Mean Corpuscular Volume 81, Mean Corpuscular Hemoglobin 23.7L, Mean Corpuscular Hemoglobin Concent 29.2L, Red Cell Distribution Width 16.3H, Platelet Count 224, Mean Platelet Volume 10.3H, Neutrophils (%) (Auto) 65.2, Lymphocytes (%) (Auto) 20.1, Monocytes (%) (Auto) 8.4, Eosinophils (%) (Auto) 5.4H, Basophils (%) (Auto) 0.9, Sodium Level 141, Potassium Level 3.6, Chloride Level 106, Carbon Dioxide Level 30, Anion Gap 5, Blood Urea Nitrogen 20H, Creatinine 1.4H, Estimat Glomerular Filtration Rate 59.3, Glucose Level 110H, Calcium Level 8.1L, Magnesium Level 1.6L, Digoxin Level 0.4L Height (Feet): 6 Height (Inches): 2.00 Weight (Pounds): 219 General Appearance: lethargic EENT: normal ENT inspection Neck: normal alignment Cardiovascular: normal peripheral pulses, normal rate, regular rhythm Respiratory/Chest: chest wall non-tender, lungs clear, normal breath sounds Abdomen: normal bowel sounds, non tender, soft Extremities: normal inspection Edema: no edema noted Arm (L), no edema noted Arm (R), no edema noted Leg (L), no edema noted Leg (R), no edema noted Pedal (L), no edema noted Pedal (R), no edema noted Generalized Neurologic: motor weakness Skin: normal pigmentation, warm/dry Assessment/Plan Problem List: (1) Afib ICD Codes: I48.91 - Unspecified atrial fibrillation SNOMED: 27418005 (2) Homelessness ICD Codes: Z59.0 - Homelessness; L03.116 - Cellulitis of left lower limb SNOMED: 32258958 (3) Cellulitis of both lower extremities ICD Codes: L03.115 - Cellulitis of right lower limb; L03.116 - Cellulitis of left lower limb SNOMED: 990481051 Status: stable, progressing Assessment/Plan: cardio f/u wound care abx cbc bmp am aru if clear Robert Avalos DO Apr 30, 2020 09:22
--- NOTE | 2020-04-30 09:57 | NUR ---
NURSE NOTES: Dr Avaols called back and referred us to Dr Barcenas regarding mg 1.6, Dr Barcenas ordered to continue mg oxide bid as order, noted and carried out. will continue to monitor.
--- NOTE | 2020-04-30 10:18 | Surgery Progress Note ---
Surgery Progress Note Subjective Symptoms: improved Additional Comments afebrile, HD stable labs improved exam improved feels better no n/v/f/c Objective Last 24 Hour Vital Signs Date Time Temp Pulse Resp B/P (MAP) Pulse Ox O2 Delivery O2 Flow Rate FiO2 04/30/20 08:47 104 172/90 04/30/20 08:47 172/90 04/30/20 08:47 104 04/30/20 08:00 97.7 104 20 172/90 (117) 96 04/30/20 07:47 74 04/30/20 04:00 98.1 87 18 144/89 (107) 95 04/30/20 04:00 Room Air 04/30/20 03:43 96 04/30/20 00:00 Room Air 04/30/20 00:00 97.7 78 18 155/64 (94) 97 04/30/20 00:00 96 04/29/20 23:00 98.0 88 18 155/75 (101) 98 04/29/20 22:13 172/93 04/29/20 22:00 83 22 172/93 (119) 96 04/29/20 21:00 92 22 135/107 (116) 96 04/29/20 20:09 114 173/110 04/29/20 20:00 91 04/29/20 20:00 Room Air 04/29/20 20:00 98.4 100 21 173/110 (131) 98 04/29/20 19:00 120 28 160/90 (113) 98 04/29/20 18:00 94 25 163/90 (114) 99 04/29/20 17:00 88 27 161/78 (105) 100 04/29/20 16:00 81 04/29/20 16:00 97.6 85 16 148/105 (119) 98 04/29/20 16:00 Room Air 04/29/20 15:00 85 18 144/96 (112) 97 04/29/20 14:00 82 20 156/70 (98) 98 04/29/20 13:00 87 16 139/72 (94) 95 04/29/20 12:00 95 04/29/20 12:00 92 26 150/71 (97) 98 04/29/20 12:00 Room Air 04/29/20 11:00 79 16 163/97 (119) 97 I&O Intake and Output 04/29/20 04/30/20 19:00 07:00 Intake Total 815.0 ml 415 ml Output Total 1770 ml 1850 ml Balance -955.0 ml -1435 ml Intake Oral 360 ml 360 ml IV Total 455.0 ml 55 ml Output Urine Total 1770 ml 1850 ml # Voids 100 3 # Bowel Movements 2 2 Dressing: saturated Wound: clean Cardiovascular: RSR Respiratory: clear Abdomen: soft, non-tender, present bowel sounds Extremities: edema, tenderness, no cyanosis, other Laboratory Tests Test 04/30/20 03:15 White Blood Count 4.9 K/UL (4.8-10.8) Red Blood Count 4.75 M/UL (4.70-6.10) Hemoglobin 11.3 G/DL (14.2-18.0) L Hematocrit 38.5 % (42.0-52.0) L Mean Corpuscular Volume 81 FL (80-99) Mean Corpuscular Hemoglobin 23.7 PG (27.0-31.0) L Mean Corpuscular Hemoglobin Concent 29.2 G/DL (32.0-36.0) L Red Cell Distribution Width 16.3 % (11.6-14.8) H Platelet Count 224 K/UL (150-450) Mean Platelet Volume 10.3 FL (6.5-10.1) H Neutrophils (%) (Auto) 65.2 % (45.0-75.0) Lymphocytes (%) (Auto) 20.1 % (20.0-45.0) Monocytes (%) (Auto) 8.4 % (1.0-10.0) Eosinophils (%) (Auto) 5.4 % (0.0-3.0) H Basophils (%) (Auto) 0.9 % (0.0-2.0) Sodium Level 141 MMOL/L (136-145) Potassium Level 3.6 MMOL/L (3.5-5.1) Chloride Level 106 MMOL/L (98-107) Carbon Dioxide Level 30 MMOL/L (21-32) Anion Gap 5 mmol/L (5-15) Blood Urea Nitrogen 20 mg/dL (7-18) H Creatinine 1.4 MG/DL (0.55-1.30) H Estimat Glomerular Filtration Rate 59.3 mL/min (>60) Glucose Level 110 MG/DL (74-106) H Calcium Level 8.1 MG/DL (8.5-10.1) L Magnesium Level 1.6 MG/DL (1.8-2.4) L Digoxin Level 0.4 NG/ML (0.5-2.0) L Plan Problems: (1) Homelessness (2) Cellulitis of both lower extremities Assessment & Plan: Patient present on admission with bilateral lower extremity cellulitis and edema. Recent trauma and persistently has had some edema now with superimposed infection cellulitis. No abscess identified. Wounds noted with skin breakdown small ulcerations in bilateral lower extremities right worse than left. Seemingly fluid overloaded as well. No acute surgical intervention recommended this time. Will need local wound care. Wash wounds daily with normal saline. Apply Thera honey to open ulcerations followed by nonadherent dressing and wrap with Kerlix. Keep leg elevated above with pillow. Turn every 2 hours. Offload pressures. Nutritional optimization. Will follow with local care and recommendations. Thank you for letting participate patient's care. A ntibiotics per infectious disease. improving edema / cellulitis improved wounds stable cont diet cont abx as per ID keep legs elevated thank you Duplex Doppler interrogation of the veins in both lower extremity is performed from the common femoral vein to the popliteal vein. Normal venous compressibility demonstrated throughout. No thrombus identified. Waveform analysis shows good respiratory phasicity and augmentation. There is mild subcutaneous soft tissue edema. IMPRESSION: No evidence of deep venous thrombosis involving the lower extremities. Marquise Zamorano Apr 30, 2020 10:18
--- NOTE | 2020-04-30 12:55 | Cardiac Electrophysiology PN ---
Assessment/Plan Assessment/Plan 1.Newly diagnosed cardiomyopathy with EF 40%. Continue Coreg 25 bid, Digoxin 0.25 daily and Lasix 40 iv daily Will need cardiac catheterization for further evaluation of his coronaries, especially in view of inferolateral ischemia on a 12-lead EKG. 2. Atrial fibrillation with rapid ventricular response. Rate better on Coreg 25 bid and Digoxin 0.25 daily. Dig level 0.5 Already on anticoagulation with Eliquis 5 mg b.i.d. 3. Bilateral lower extremity cellulitis. The patient is on antibiotic per ID. ARGELIA RN Subjective Subjective Transferred out of ICD and rate in controlled in atrial fib .No CP or SOB. Objective Last 24 Hour Vital Signs Date Time Temp Pulse Resp B/P (MAP) Pulse Ox O2 Delivery O2 Flow Rate FiO2 04/30/20 12:00 97.0 87 18 132/76 (94) 94 04/30/20 12:00 Room Air 04/30/20 11:41 79 04/30/20 10:00 155/83 (107) 04/30/20 08:47 104 172/90 04/30/20 08:47 172/90 04/30/20 08:47 104 04/30/20 08:00 97.7 104 20 172/90 (117) 96 04/30/20 08:00 Room Air 04/30/20 07:47 85 04/30/20 04:00 98.1 87 18 144/89 (107) 95 04/30/20 04:00 Room Air 04/30/20 03:43 96 04/30/20 00:00 Room Air 04/30/20 00:00 97.7 78 18 155/64 (94) 97 04/30/20 00:00 96 04/29/20 23:00 98.0 88 18 155/75 (101) 98 04/29/20 22:13 172/93 04/29/20 22:00 83 22 172/93 (119) 96 04/29/20 21:00 92 22 135/107 (116) 96 04/29/20 20:09 114 173/110 04/29/20 20:00 91 04/29/20 20:00 Room Air 04/29/20 20:00 98.4 100 21 173/110 (131) 98 04/29/20 19:00 120 28 160/90 (113) 98 04/29/20 18:00 94 25 163/90 (114) 99 04/29/20 17:00 88 27 161/78 (105) 100 04/29/20 16:00 81 04/29/20 16:00 97.6 85 16 148/105 (119) 98 04/29/20 16:00 Room Air 04/29/20 15:00 85 18 144/96 (112) 97 04/29/20 14:00 82 20 156/70 (98) 98 04/29/20 13:00 87 16 139/72 (94) 95 Intake and Output 04/29/20 04/30/20 19:00 07:00 Intake Total 815.0 ml 415 ml Output Total 1770 ml 1850 ml Balance -955.0 ml -1435 ml Intake Oral 360 ml 360 ml IV Total 455.0 ml 55 ml Output Urine Total 1770 ml 1850 ml # Voids 100 3 # Bowel Movements 2 2 Laboratory Tests Test 04/30/20 03:15 White Blood Count 4.9 K/UL (4.8-10.8) Red Blood Count 4.75 M/UL (4.70-6.10) Hemoglobin 11.3 G/DL (14.2-18.0) L Hematocrit 38.5 % (42.0-52.0) L Mean Corpuscular Volume 81 FL (80-99) Mean Corpuscular Hemoglobin 23.7 PG (27.0-31.0) L Mean Corpuscular Hemoglobin Concent 29.2 G/DL (32.0-36.0) L Red Cell Distribution Width 16.3 % (11.6-14.8) H Platelet Count 224 K/UL (150-450) Mean Platelet Volume 10.3 FL (6.5-10.1) H Neutrophils (%) (Auto) 65.2 % (45.0-75.0) Lymphocytes (%) (Auto) 20.1 % (20.0-45.0) Monocytes (%) (Auto) 8.4 % (1.0-10.0) Eosinophils (%) (Auto) 5.4 % (0.0-3.0) H Basophils (%) (Auto) 0.9 % (0.0-2.0) Sodium Level 141 MMOL/L (136-145) Potassium Level 3.6 MMOL/L (3.5-5.1) Chloride Level 106 MMOL/L (98-107) Carbon Dioxide Level 30 MMOL/L (21-32) Anion Gap 5 mmol/L (5-15) Blood Urea Nitrogen 20 mg/dL (7-18) H Creatinine 1.4 MG/DL (0.55-1.30) H Estimat Glomerular Filtration Rate 59.3 mL/min (>60) Glucose Level 110 MG/DL (74-106) H Calcium Level 8.1 MG/DL (8.5-10.1) L Magnesium Level 1.6 MG/DL (1.8-2.4) L Digoxin Level 0.4 NG/ML (0.5-2.0) L Objective NECK: mild JVD. LUNGS: Decreased breath sounds. CARDIOVASCULAR: Irregularly irregular S1 and S2 with no gallop. ABDOMEN: Soft. EXTREMITIES: Bilateral lower extremity edema and cellulitis. Adrian Rahman MD Apr 30, 2020 12:55
--- NOTE | 2020-04-30 13:07 | Infectious Diseases Prog Note ---
Assessment/Plan Assessment: B/l LE cellulitis- R>L; improving -wound cx GBS, S. marcences (R ancef; otherwise S) Afebrile No leukocytosis CATERINA vs CKD; improving Afib w/ RVR- SP homelessness Plan: -Ceftriaxone #2 (abx d #4/7-10) -04/29 SP IV Vancomycin #3, Unasyn #3 -04/27 SP ZOsyn x1 -f/u cx -Monitor CBC/CMP, temperatures -wound care per surgical team -cards, gen sx f/u Thank you for this consultation. Will continue to follow along with you. Discussed with RN. Subjective Allergies: Coded Allergies: No Known Allergies (Unverified , 04/27/20) afebrile out of ICU to SDU no leukocytosis Cr improving Objective Last 24 Hour Vital Signs Date Time Temp Pulse Resp B/P (MAP) Pulse Ox O2 Delivery O2 Flow Rate FiO2 04/30/20 12:00 97.0 87 18 132/76 (94) 94 04/30/20 12:00 Room Air 04/30/20 11:41 79 04/30/20 10:00 155/83 (107) 04/30/20 08:47 104 172/90 04/30/20 08:47 172/90 04/30/20 08:47 104 04/30/20 08:00 97.7 104 20 172/90 (117) 96 04/30/20 08:00 Room Air 04/30/20 07:47 85 04/30/20 04:00 98.1 87 18 144/89 (107) 95 04/30/20 04:00 Room Air 04/30/20 03:43 96 04/30/20 00:00 Room Air 04/30/20 00:00 97.7 78 18 155/64 (94) 97 04/30/20 00:00 96 04/29/20 23:00 98.0 88 18 155/75 (101) 98 04/29/20 22:13 172/93 04/29/20 22:00 83 22 172/93 (119) 96 04/29/20 21:00 92 22 135/107 (116) 96 04/29/20 20:09 114 173/110 04/29/20 20:00 91 04/29/20 20:00 Room Air 04/29/20 20:00 98.4 100 21 173/110 (131) 98 04/29/20 19:00 120 28 160/90 (113) 98 04/29/20 18:00 94 25 163/90 (114) 99 04/29/20 17:00 88 27 161/78 (105) 100 04/29/20 16:00 81 04/29/20 16:00 97.6 85 16 148/105 (119) 98 04/29/20 16:00 Room Air 04/29/20 15:00 85 18 144/96 (112) 97 04/29/20 14:00 82 20 156/70 (98) 98 Height (Feet): 6 Height (Inches): 2.00 Weight (Pounds): 219 General Appearance: well appearing, no apparent distress, alert Head: normocephalic, atraumatic Neck: full range of motion, supple Respiratory: chest non-tender, lungs clear, normal breath sounds Cardiovascular regular rate, rhythm, no murmur Gastrointestinal: normal bowel sounds, non tender, no mass, no organomegaly, no bruit, non-distended Musculoskeletal: back normal, normal range of motion, gait/station normal, othe r -B/l cellulitis and swelling improving Laboratory Tests Test 04/30/20 03:15 White Blood Count 4.9 K/UL (4.8-10.8) Red Blood Count 4.75 M/UL (4.70-6.10) Hemoglobin 11.3 G/DL (14.2-18.0) L Hematocrit 38.5 % (42.0-52.0) L Mean Corpuscular Volume 81 FL (80-99) Mean Corpuscular Hemoglobin 23.7 PG (27.0-31.0) L Mean Corpuscular Hemoglobin Concent 29.2 G/DL (32.0-36.0) L Red Cell Distribution Width 16.3 % (11.6-14.8) H Platelet Count 224 K/UL (150-450) Mean Platelet Volume 10.3 FL (6.5-10.1) H Neutrophils (%) (Auto) 65.2 % (45.0-75.0) Lymphocytes (%) (Auto) 20.1 % (20.0-45.0) Monocytes (%) (Auto) 8.4 % (1.0-10.0) Eosinophils (%) (Auto) 5.4 % (0.0-3.0) H Basophils (%) (Auto) 0.9 % (0.0-2.0) Sodium Level 141 MMOL/L (136-145) Potassium Level 3.6 MMOL/L (3.5-5.1) Chloride Level 106 MMOL/L (98-107) Carbon Dioxide Level 30 MMOL/L (21-32) Anion Gap 5 mmol/L (5-15) Blood Urea Nitrogen 20 mg/dL (7-18) H Creatinine 1.4 MG/DL (0.55-1.30) H Estimat Glomerular Filtration Rate 59.3 mL/min (>60) Glucose Level 110 MG/DL (74-106) H Calcium Level 8.1 MG/DL (8.5-10.1) L Magnesium Level 1.6 MG/DL (1.8-2.4) L Digoxin Level 0.4 NG/ML (0.5-2.0) L Current Medications Medications (Trade) Dose Ordered Sig/Naa Route PRN Reason Start Time Stop Time Status Last Admin Dose Admin Acetaminophen (Tylenol) 650 mg Q6H PRN ORAL Mild Pain (Pain Scale 1-3) 04/28/20 14:45 05/28/20 14:44 Acetaminophen (Tylenol) 650 mg Q6H PRN ORAL Temp >100.5 04/28/20 14:45 05/28/20 14:44 Apixaban (Eliquis) 5 mg BID ORAL 04/27/20 18:00 07/26/20 17:59 04/30/20 08:47 Carvedilol (Coreg) 25 mg EVERY 12 HOURS ORAL 04/29/20 21:00 05/29/20 20:59 04/30/20 08:47 Ceftriaxone Sodium 1 gm/ Dextrose 55 ml @ 110 mls/hr Q24H IVPB 04/29/20 21:00 05/06/20 20:59 04/29/20 20:08 Clonidine HCl (Catapres Tab) 0.1 mg Q2H PRN ORAL For High Blood Pressure 04/28/20 16:15 07/27/20 16:14 04/30/20 08:47 Digoxin (Lanoxin) 0.25 mg DAILY ORAL 04/29/20 09:00 07/28/20 08:59 04/30/20 08:47 Docusate Sodium (Colace) 100 mg TWICE A DAY ORAL 04/30/20 18:00 05/30/20 17:59 Furosemide (Lasix) 40 mg DAILY IV 04/28/20 09:00 05/28/20 08:59 04/30/20 08:47 Magnesium Oxide (Mag-Ox 400mg) 400 mg EVERY 12 HOURS ORAL 04/28/20 11:00 05/28/20 10:59 04/30/20 08:47 Morphine Sulfate (Morphine Sulfate) 2 mg Q4H PRN IVP Severe Pain (Pain Scale 7-10) 04/27/20 06:00 05/04/20 05:59 Sherron Leal M.D. Apr 30, 2020 13:07
--- NOTE | 2020-04-30 14:35 | NUR ---
P.T Note: P.T evaluation completed and initiated. Please refer to P.T evaluation for current functional status.
--- NOTE | 2020-04-30 16:10 | NUR ---
NURSE NOTES: Raoid covid swab sent to lab, waiting for result.
--- NOTE | 2020-04-30 17:07 | NUR ---
NURSE NOTES: MRSA VRE CRE swab sent to lab.
[2020-04-30] MEDS: Docusate 100mg cap ORAL SCH (17:11)
--- NOTE | 2020-04-30 18:43 | NUR ---
NURSE NOTES: pt is stable, V/S stable, all belongings checked with RN and are with pt. pt has 33$ and refused to send to safe. iv acces intact. pt transferred to 205 bed 2, Report given to [employer] Berry. Report plan of care.
--- NOTE | 2020-04-30 18:50 | NUR ---
NURSE NOTES: Received pt from SDU. Received report from NORM Lloyd. Pt A/Ox4. No c/o pain. No s/s of acute distress. Currently on room air. SL on right hand, asymptomatic, patent and intact. Bed in low position, side rails up x2 and call light within reach. Will continue to monitor.
--- NOTE | 2020-04-30 19:32 | NUR ---
NURSE HAND-OFF REPORT: Important Events on Shift:[] Patient Status: [] Diet: [] Pending Orders: [] Pending Results/Labs:[] Pending MD notification:[] Latest Vital Signs: Temperature 96.8 , Pulse 66 , B/P 154 /81 , Respiratory Rate 18 , O2 SAT 98 , Room Air, O2 Flow Rate . Vital Sign Comment: [] EKG Rhythm: AFib with BBB Rhythm change?: N Notified?: Candace Dobbins MD Response: Latest Saleh Fall Score: 85 Fall Risk: High Risk Safety Measures: Call light Within Reach, Bed Alarm Zone 2, Side Rails Side Rails x3, Bed position Low and Locked. Fall Precautions: Yellow Socks Yellow Gown Door Sign Patient Fall Education Report given to [NORM Gardner/NORM Leon].
--- NOTE | 2020-04-30 19:39 | NUR ---
NURSE NOTES: Received report from NORM Horta, pt. in bed awake, A/O x's4- able to make needs known, no signs or symptoms of acute cardiac or respiratory distress noted, bed alarm on, side rails up x's 3 and safety brakes engaged, call light within easy reach, urinal at bedside and within easy reach, HOB elevated- aspiration precautions observed, skin precautions observed, safety measures continued- will continue to monitor pt. and with plan of car
[2020-04-30] MEDS: cefTRIAXone 1 GM in D5W 55 ML IVPB SCH (20:04)
--- NOTE | 2020-04-30 20:11 | NUR ---
NURSE NOTES: Magnesium oxide 400 mg was mistakenly dropped on the floor. Was reported to the pharmacy and a new tab was taken from the Pyxis. Addendum: 04/30/20 at 2019 by Chidi Curry RN Spoke with Margarita.
[2020-05-01] VITALS: BP 147/78
--- NOTE | 2020-05-01 02:07 | NUR ---
NURSE NOTES: The patient is alert and stable and doesn't appear to be in any distress at this time. The Resp remain even and unlabored and he was able to turn and reposition himself. He had a bowel movement that was medium and formed x 2 times.Will continue to monitor
[2020-05-01 04:00] VITALS: BP 159/80
--- NOTE | 2020-05-01 06:53 | NUR ---
NURSE HAND-OFF REPORT: Important Events on Shift:none Patient Status: stable Diet: regular Pending Orders: Pending Results/Labs: Pending MD notification: Latest Vital Signs: Temperature 97.9 , Pulse 71 , B/P 159 /80 , Respiratory Rate 17 , O2 SAT 98 , Room Air, O2 Flow Rate . Vital Sign Comment: EKG Rhythm: Atrial Fibrillation Rhythm change?: N MD Notified?: MD Response: Latest Saleh Fall Score: 85 Fall Risk: High Risk Safety Measures: Call light Within Reach, Bed Alarm Zone 2, Side Rails Side Rails x3, Bed position Low and Locked. Fall Precautions: Yellow Socks Yellow Gown Door Sign Patient Fall Education Report given to Landa RN, pt. remains stable and no signs of distress noted- aware to f/u on any abnormal am labs.
--- NOTE | 2020-05-01 07:28 | NUR ---
NURSE NOTES: Received patient in bed awake. No SOB or acute distress. Disposition very pleasant. IV line intact. Dressings on BLE intact. HOB elevated. Bed locked in low position. Call light within reach. Will continue plan of care.
[2020-05-01 07:49] LABS: BASOPHILS % (AUTO) 1.2 % (0.0-2.0); EOSINOPHILS % (AUTO) 6.1 % (0.0-3.0); HEMATOCRIT 37.5 % (42.0-52.0); HEMOGLOBIN 11.2 G/DL (14.2-18.0); LYMPHOCYTES % (AUTO) 28.5 % (20.0-45.0); MEAN CORPUSCULAR VOLUME 80 FL (80-99); MONOCYTES % (AUTO) 9.5 % (1.0-10.0); NEUTROPHILS % (AUTO) 54.6 % (45.0-75.0); PLATELET COUNT 226 K/UL (150-450); RED BLOOD COUNT 4.67 M/UL (4.70-6.10); RED CELL DISTRIBUTION WIDTH 16.3 % (11.6-14.8); WHITE BLOOD COUNT 4.4 K/UL (4.8-10.8)
--- NOTE | 2020-05-01 07:50 | Infectious Diseases Prog Note ---
Assessment/Plan Assessment: B/l LE cellulitis- R>L; improving -wound cx GBS, S. marcences (R ancef; otherwise S) Afebrile No leukocytosis CATERINA vs CKD; improving Afib w/ RVR- SP homelessness Plan: -Ceftriaxone #3 (abx d #4/7-10) -04/29 SP IV Vancomycin #3, Unasyn #3 -04/27 SP Zosyn x1 -f/u cx -Monitor CBC/CMP, temperatures -wound care per surgical team -cards, gen sx f/u Thank you for this consultation. Will continue to follow along with you. Discussed with RN. Subjective Allergies: Coded Allergies: No Known Allergies (Unverified , 04/27/20) AF No leukocytosis NAD in bed Objective Last 24 Hour Vital Signs Date Time Temp Pulse Resp B/P (MAP) Pulse Ox O2 Delivery O2 Flow Rate FiO2 05/01/20 04:00 97.9 71 17 159/80 (106) 98 05/01/20 03:30 73 05/01/20 00:00 97.7 66 18 147/78 (101) 100 04/30/20 23:47 97.7 66 18 147/78 (101) 100 04/30/20 23:28 91 04/30/20 21:00 Room Air 04/30/20 20:05 75 163/87 04/30/20 20:00 96.8 75 18 163/87 (112) 98 04/30/20 19:35 74 04/30/20 16:00 Room Air 04/30/20 16:00 96.8 66 18 154/81 (105) 98 04/30/20 15:40 75 04/30/20 12:00 97.0 87 18 132/76 (94) 94 04/30/20 12:00 Room Air 04/30/20 11:41 79 04/30/20 10:00 155/83 (107) 04/30/20 08:47 104 172/90 04/30/20 08:47 172/90 04/30/20 08:47 104 04/30/20 08:00 97.7 104 20 172/90 (117) 96 04/30/20 08:00 Room Air Height (Feet): 6 Height (Inches): 2.00 Weight (Pounds): 219 Gen: NAD HEENT: NCAT, EOMI, PERRL CV: RRR Pulm: CTAB Abd: Soft, NTND Ext: No c/c. Improving R>L cellulitis vs purpuric rash Neuro: Awake Microbiology Date/Time Source Procedure Growth Status 04/30/20 16:15 Nasopharynx SARS-CoV-2 RdRp Gene Assay - Final Complete Laboratory Tests Test 05/01/20 06:40 White Blood Count Pending Red Blood Count Pending Hemoglobin Pending Hematocrit Pending Mean Corpuscular Volume Pending Mean Corpuscular Hemoglobin Pending Mean Corpuscular Hemoglobin Concent Pending Red Cell Distribution Width Pending Platelet Count Pending Mean Platelet Volume Pending Neutrophils (%) (Auto) Pending Lymphocytes (%) (Auto) Pending Monocytes (%) (Auto) Pending Eosinophils (%) (Auto) Pending Basophils (%) (Auto) Pending Sodium Level Pending Potassium Level Pending Chloride Level Pending Carbon Dioxide Level Pending Blood Urea Nitrogen Pending Creatinine Pending Estimat Glomerular Filtration Rate Pending Glucose Level Pending Calcium Level Pending Total Bilirubin Pending Aspartate Amino Transf (AST/SGOT) Pending Alanine Aminotransferase (ALT/SGPT) Pending Alkaline Phosphatase Pending Total Protein Pending Albumin Pending Globulin Pending Current Medications Medications (Trade) Dose Ordered Sig/Naa Route PRN Reason Start Time Stop Time Status Last Admin Dose Admin Acetaminophen (Tylenol) 650 mg Q6H PRN ORAL Mild Pain (Pain Scale 1-3) 04/28/20 14:45 05/28/20 14:44 Acetaminophen (Tylenol) 650 mg Q6H PRN ORAL Temp >100.5 04/28/20 14:45 05/28/20 14:44 Apixaban (Eliquis) 5 mg BID ORAL 04/27/20 18:00 07/26/20 17:59 04/30/20 17:12 Carvedilol (Coreg) 25 mg EVERY 12 HOURS ORAL 04/29/20 21:00 05/29/20 20:59 04/30/20 20:05 Ceftriaxone Sodium 1 gm/ Dextrose 55 ml @ 110 mls/hr Q24H IVPB 04/29/20 21:00 05/06/20 20:59 04/30/20 20:04 Clonidine HCl (Catapres Tab) 0.1 mg Q2H PRN ORAL For High Blood Pressure 04/28/20 16:15 07/27/20 16:14 04/30/20 08:47 Digoxin (Lanoxin) 0.25 mg DAILY ORAL 04/29/20 09:00 07/28/20 08:59 04/30/20 08:47 Docusate Sodium (Colace) 100 mg TWICE A DAY ORAL 04/30/20 18:00 05/30/20 17:59 04/30/20 17:11 Furosemide (Lasix) 40 mg DAILY IV 04/28/20 09:00 05/28/20 08:59 04/30/20 08:47 Magnesium Oxide (Mag-Ox 400mg) 400 mg EVERY 12 HOURS ORAL 04/28/20 11:00 05/28/20 10:59 04/30/20 20:17 Morphine Sulfate (Morphine Sulfate) 2 mg Q4H PRN IVP Severe Pain (Pain Scale 7-10) 04/27/20 06:00 05/04/20 05:59 Yelena Graham M.D. May 01, 2020 07:50
[2020-05-01 08:00] VITALS: BP 158/75
[2020-05-01] MEDS: Magnesium Oxide 400mg tab ORAL SCH ×2 (08:12→20:55)
[2020-05-01] MEDS: Docusate 100mg cap ORAL SCH ×4 (08:12→17:27)
[2020-05-01] MEDS: Eliquis 5mg tablet ORAL SCH ×2 (08:12→17:25)
[2020-05-01] MEDS: Carvedilol 25mg Tab ORAL SCH ×2 (08:12→20:55)
--- NOTE | 2020-05-01 09:21 | General Progress Note ---
Subjective Constitutional: Reports: weakness Allergies: Coded Allergies: No Known Allergies (Unverified , 04/27/20) All Systems: reviewed and negative except above Subjective calm in bed Objective Last 24 Hour Vital Signs Date Time Temp Pulse Resp B/P (MAP) Pulse Ox O2 Delivery O2 Flow Rate FiO2 05/01/20 08:12 98 158/75 05/01/20 08:12 98 05/01/20 08:00 97.9 98 16 158/75 (102) 96 05/01/20 04:00 97.9 71 17 159/80 (106) 98 05/01/20 03:30 73 05/01/20 00:00 97.7 66 18 147/78 (101) 100 04/30/20 23:47 97.7 66 18 147/78 (101) 100 04/30/20 23:28 91 04/30/20 21:00 Room Air 04/30/20 20:05 75 163/87 04/30/20 20:00 96.8 75 18 163/87 (112) 98 04/30/20 19:35 74 04/30/20 16:00 Room Air 04/30/20 16:00 96.8 66 18 154/81 (105) 98 04/30/20 15:40 75 04/30/20 12:00 97.0 87 18 132/76 (94) 94 04/30/20 12:00 Room Air 04/30/20 11:41 79 04/30/20 10:00 155/83 (107) Intake and Output 04/30/20 05/01/20 19:00 07:00 Intake Total 240 ml 340 ml Output Total 3000 ml 740 ml Balance -2760 ml -400 ml Intake Oral 240 ml 230 ml IV Total 110 ml Output Urine Total 3000 ml 740 ml # Voids 2 # Bowel Movements 1 2 Laboratory Tests 05/01/20 06:40: White Blood Count 4.4L, Red Blood Count 4.67L, Hemoglobin 11.2L, Hematocrit 37.5L, Mean Corpuscular Volume 80, Mean Corpuscular Hemoglobin 23.9L, Mean Corpuscular Hemoglobin Concent 29.8L, Red Cell Distribution Width 16.3H, Platelet Count 226, Mean Platelet Volume 10.4H, Neutrophils (%) (Auto) 54.6, Lymphocytes (%) (Auto) 28.5, Monocytes (%) (Auto) 9.5, Eosinophils (%) (Auto) 6.1H, Basophils (%) (Auto) 1.2 Height (Feet): 6 Height (Inches): 2.00 Weight (Pounds): 219 General Appearance: lethargic EENT: normal ENT inspection Neck: normal alignment Cardiovascular: normal peripheral pulses, normal rate, regular rhythm Respiratory/Chest: chest wall non-tender, lungs clear, normal breath sounds Abdomen: normal bowel sounds, non tender, soft Extremities: normal inspection Edema: no edema noted Arm (L), no edema noted Arm (R), no edema noted Leg (L), no edema noted Leg (R), no edema noted Pedal (L), no edema noted Pedal (R), no edema noted Generalized Neurologic: motor weakness Skin: normal pigmentation, warm/dry Assessment/Plan Problem List: (1) Afib ICD Codes: I48.91 - Unspecified atrial fibrillation SNOMED: 81162039 (2) Homelessness ICD Codes: Z59.0 - Homelessness; L03.116 - Cellulitis of left lower limb SNOMED: 16690159 (3) Cellulitis of both lower extremities ICD Codes: L03.115 - Cellulitis of right lower limb; L03.116 - Cellulitis of left lower limb SNOMED: 450353511 Status: stable, progressing Assessment/Plan: cardio f/u wound care abx cbc bmp am aru if clear Robert Avalos DO May 01, 2020 09:21
[2020-05-01] MEDS ORDERED: NS Irrig 1000ml ONE (09:54)
[2020-05-01 11:01] LABS: ALBUMIN 1.8 G/DL (3.4-5.0); ALBUMIN/GLOBULIN RATIO 0.4 (1.0-2.7); BILIRUBIN,TOTAL 0.8 MG/DL (0.2-1.0); CALCIUM 8.2 MG/DL (8.5-10.1); CREATININE 1.5 MG/DL (0.55-1.30); POTASSIUM 3.4 MMOL/L (3.5-5.1)
[2020-05-01 12:00] VITALS: BP 123/68
--- NOTE | 2020-05-01 14:02 | Surgery Progress Note ---
Surgery Progress Note Subjective Additional Comments afebrile, HD stable, labs okay. cr elevated cellulitis improving pain improved Objective Last 24 Hour Vital Signs Date Time Temp Pulse Resp B/P (MAP) Pulse Ox O2 Delivery O2 Flow Rate FiO2 05/01/20 09:00 Room Air 05/01/20 08:12 98 158/75 05/01/20 08:12 98 05/01/20 08:00 97.9 98 16 158/75 (102) 96 05/01/20 08:00 87 05/01/20 04:00 97.9 71 17 159/80 (106) 98 05/01/20 03:30 73 05/01/20 00:00 97.7 66 18 147/78 (101) 100 04/30/20 23:47 97.7 66 18 147/78 (101) 100 04/30/20 23:28 91 04/30/20 21:00 Room Air 04/30/20 20:05 75 163/87 04/30/20 20:00 96.8 75 18 163/87 (112) 98 04/30/20 19:35 74 04/30/20 16:00 Room Air 04/30/20 16:00 96.8 66 18 154/81 (105) 98 04/30/20 15:40 75 I&O Intake and Output 04/30/20 05/01/20 19:00 07:00 Intake Total 240 ml 340 ml Output Total 3000 ml 740 ml Balance -2760 ml -400 ml Intake Oral 240 ml 230 ml IV Total 110 ml Output Urine Total 3000 ml 740 ml # Voids 2 # Bowel Movements 1 2 Dressing: dry Wound: clean Cardiovascular: RSR Respiratory: clear, decreased breath sounds Abdomen: soft, non-tender, present bowel sounds, non-distended Extremities: edema, no tenderness, no cyanosis Laboratory Tests Test 05/01/20 06:40 05/01/20 10:00 White Blood Count 4.4 K/UL (4.8-10.8) L Red Blood Count 4.67 M/UL (4.70-6.10) L Hemoglobin 11.2 G/DL (14.2-18.0) L Hematocrit 37.5 % (42.0-52.0) L Mean Corpuscular Volume 80 FL (80-99) Mean Corpuscular Hemoglobin 23.9 PG (27.0-31.0) L Mean Corpuscular Hemoglobin Concent 29.8 G/DL (32.0-36.0) L Red Cell Distribution Width 16.3 % (11.6-14.8) H Platelet Count 226 K/UL (150-450) Mean Platelet Volume 10.4 FL (6.5-10.1) H Neutrophils (%) (Auto) 54.6 % (45.0-75.0) Lymphocytes (%) (Auto) 28.5 % (20.0-45.0) Monocytes (%) (Auto) 9.5 % (1.0-10.0) Eosinophils (%) (Auto) 6.1 % (0.0-3.0) H Basophils (%) (Auto) 1.2 % (0.0-2.0) Sodium Level 138 MMOL/L (136-145) Potassium Level 3.4 MMOL/L (3.5-5.1) L Chloride Level 103 MMOL/L (98-107) Carbon Dioxide Level 30 MMOL/L (21-32) Anion Gap 5 mmol/L (5-15) Blood Urea Nitrogen 23 mg/dL (7-18) H Creatinine 1.5 MG/DL (0.55-1.30) H Estimat Glomerular Filtration Rate 54.7 mL/min (>60) Glucose Level 130 MG/DL (74-106) H Calcium Level 8.2 MG/DL (8.5-10.1) L Total Bilirubin 0.8 MG/DL (0.2-1.0) Aspartate Amino Transf (AST/SGOT) 37 U/L (15-37) Alanine Aminotransferase (ALT/SGPT) 44 U/L (12-78) Alkaline Phosphatase 107 U/L (46-116) Total Protein 6.7 G/DL (6.4-8.2) Albumin 1.8 G/DL (3.4-5.0) L Globulin 4.9 g/dL Albumin/Globulin Ratio 0.4 (1.0-2.7) L Plan Problems: (1) Homelessness (2) Cellulitis of both lower extremities Assessment & Plan: Patient present on admission with bilateral lower extremity cellulitis and edema. Recent trauma and persistently has had some edema now with superimposed infection cellulitis. No abscess identified. Wounds noted with skin breakdown small ulcerations in bilateral lower extremities right worse than left. Seemingly fluid overloaded as well. No acute surgical intervention recommended this time. Will need local wound care. Wash wounds daily with normal saline. Apply Thera honey to open ulcerations followed by nonadherent dressing and wrap with Kerlix. Keep leg elevated above with pillow. Turn every 2 hours. Offload pressures. Nutritional optimization. Will follow with local care and recommendations. Thank you for letting participate patient's care. Antibiotics per infectious disease. improving edema / cellulitis improved wounds stable cont diet cont abx as per ID keep legs elevated improving d/c planning covid neg thank you Duplex Doppler interrogation of the veins in both lower extremity is performed from the common femoral vein to the popliteal vein. Normal venous compressibility demonstrated throughout. No thrombus identified. Waveform analysis shows good respiratory phasicity and augmentation. There is mild subcutaneous soft tissue edema. IMPRESSION: No evidence of deep venous thrombosis involving the lower extremities. Marquise Zamorano May 01, 2020 14:02
[2020-05-01 16:00] VITALS: BP 134/76
--- NOTE | 2020-05-01 16:46 | Cardiac Electrophysiology PN ---
Assessment/Plan Assessment/Plan 1.Newly diagnosed cardiomyopathy with EF 40%. Continue Coreg 25 bid, Digoxin 0.25 daily and Lasix 40 iv daily Will need cardiac catheterization for further evaluation of his coronaries, especially in view of inferolateral ischemia on a 12-lead EKG. 2. Atrial fibrillation with rapid ventricular response. Rate better on Coreg 25 bid and Digoxin 0.25 daily. Dig level 0.5 Already on anticoagulation with Eliquis 5 mg b.i.d. 3. Bilateral lower extremity cellulitis. The patient is on antibiotic per ID. ARGELIA RN Subjective Subjective On tele now and rate is controlled in atrial fib .No CP or SOB. Objective Last 24 Hour Vital Signs Date Time Temp Pulse Resp B/P (MAP) Pulse Ox O2 Delivery O2 Flow Rate FiO2 05/01/20 12:00 96.6 82 17 123/68 (86) 95 05/01/20 09:00 Room Air 05/01/20 08:12 98 158/75 05/01/20 08:12 98 05/01/20 08:00 97.9 98 16 158/75 (102) 96 05/01/20 08:00 87 05/01/20 04:00 97.9 71 17 159/80 (106) 98 05/01/20 03:30 73 05/01/20 00:00 97.7 66 18 147/78 (101) 100 04/30/20 23:47 97.7 66 18 147/78 (101) 100 04/30/20 23:28 91 04/30/20 21:00 Room Air 04/30/20 20:05 75 163/87 04/30/20 20:00 96.8 75 18 163/87 (112) 98 04/30/20 19:35 74 Intake and Output 04/30/20 05/01/20 19:00 07:00 Intake Total 240 ml 340 ml Output Total 3000 ml 740 ml Balance -2760 ml -400 ml Intake Oral 240 ml 230 ml IV Total 110 ml Output Urine Total 3000 ml 740 ml # Voids 2 # Bowel Movements 1 2 Laboratory Tests Test 05/01/20 06:40 05/01/20 10:00 White Blood Count 4.4 K/UL (4.8-10.8) L Red Blood Count 4.67 M/UL (4.70-6.10) L Hemoglobin 11.2 G/DL (14.2-18.0) L Hematocrit 37.5 % (42.0-52.0) L Mean Corpuscular Volume 80 FL (80-99) Mean Corpuscular Hemoglobin 23.9 PG (27.0-31.0) L Mean Corpuscular Hemoglobin Concent 29.8 G/DL (32.0-36.0) L Red Cell Distribution Width 16.3 % (11.6-14.8) H Platelet Count 226 K/UL (150-450) Mean Platelet Volume 10.4 FL (6.5-10.1) H Neutrophils (%) (Auto) 54.6 % (45.0-75.0) Lymphocytes (%) (Auto) 28.5 % (20.0-45.0) Monocytes (%) (Auto) 9.5 % (1.0-10.0) Eosinophils (%) (Auto) 6.1 % (0.0-3.0) H Basophils (%) (Auto) 1.2 % (0.0-2.0) Sodium Level 138 MMOL/L (136-145) Potassium Level 3.4 MMOL/L (3.5-5.1) L Chloride Level 103 MMOL/L (98-107) Carbon Dioxide Level 30 MMOL/L (21-32) Anion Gap 5 mmol/L (5-15) Blood Urea Nitrogen 23 mg/dL (7-18) H Creatinine 1.5 MG/DL (0.55-1.30) H Estimat Glomerular Filtration Rate 54.7 mL/min (>60) Glucose Level 130 MG/DL (74-106) H Calcium Level 8.2 MG/DL (8.5-10.1) L Total Bilirubin 0.8 MG/DL (0.2-1.0) Aspartate Amino Transf (AST/SGOT) 37 U/L (15-37) Alanine Aminotransferase (ALT/SGPT) 44 U/L (12-78) Alkaline Phosphatase 107 U/L (46-116) Total Protein 6.7 G/DL (6.4-8.2) Albumin 1.8 G/DL (3.4-5.0) L Globulin 4.9 g/dL Albumin/Globulin Ratio 0.4 (1.0-2.7) L Microbiology Date/Time Source Procedure Growth Status 04/30/20 16:15 Nasopharynx SARS-CoV-2 RdRp Gene Assay - Final Complete Objective NECK: mild JVD. LUNGS: Decreased breath sounds. CARDIOVASCULAR: Irregularly irregular S1 and S2 with no gallop. ABDOMEN: Soft. EXTREMITIES: Bilateral lower extremity edema and cellulitis. Adrian Rahman MD May 01, 2020 16:46
--- NOTE | 2020-05-01 19:19 | NUR ---
NURSE HAND-OFF REPORT: Important Events on Shift: Patient Status: alert Diet: reg Pending Orders: Pending Results/Labs: Pending MD notification: Latest Vital Signs: Temperature 97.1 , Pulse 65 , B/P 134 /76 , Respiratory Rate 17 , O2 SAT 96 , Room Air, O2 Flow Rate . Vital Sign Comment: EKG Rhythm: afib, BBB Rhythm change?: N Notified?: Candace Dobbins MD Response: Latest Saleh Fall Score: 85 Fall Risk: High Risk Safety Measures: Call light Within Reach, Bed Alarm Zone 2, Side Rails Side Rails x3, Bed position Low and Locked. Fall Precautions: Yellow Socks Yellow Gown Door Sign Patient Fall Education Report given to Fouzia ZHENG.
--- NOTE | 2020-05-01 19:19 | NUR ---
NURSE NOTES: Received report from Paige RN. Patient is alert oriented x4, able to make needs known. Patient is siting in the bed side chair with a blanket. No signs of acute distress noted. No pain reported at this time. IV site right hand 22G locked, patent and flushed. No erythema or bleeding noted. Patient is able to ambulate steadily. Patent was educated on how to use the call light to for assistance and before trying to get up. Patient bed is locked and in lowest position. Call light with in reach. Will continue plan of care.
--- NOTE | 2020-05-01 19:37 | NUR ---
NURSE NOTES: Notified Dr. Avalos of patient Potassium level of 3.4. Dr. Avalos. Will continue to monitor.
--- NOTE | 2020-05-01 19:51 | NUR ---
NURSE NOTES: Dr. Avalos has ordered KCL 40mEq PO x 1, CBC, and BMP in AM. noted and carried out.
[2020-05-01 20:00] VITALS: BP 144/81
--- NOTE | 2020-05-01 20:00 | NUR ---
NURSE NOTES: Preformed wound care on patient bilateral lower leg. Cleansed with saline, applied therahoney and non-adherent [place] and rapped with Christian[place].
[2020-05-01] MEDS: cefTRIAXone 1 GM in D5W 55 ML IVPB SCH (20:54)
[2020-05-02] VITALS: BP 131/72
--- NOTE | 2020-05-02 03:14 | NUR ---
NURSE NOTES: Pt is currently sleeping in semi-fowlers position. no acute distress noted at this time will continue to monitor.
[2020-05-02 04:00] VITALS: BP 137/59
--- NOTE | 2020-05-02 04:20 | NUR ---
NURSE NOTES: Preformed wound care on patient bilateral lower leg. Cleansed with saline, applied therahoney and non-adherent [place] and rapped with Christianx.
--- NOTE | 2020-05-02 06:02 | Consultation ---
History of Present Illness General Chief Complaint: Lower Extremity Injury Present Illness Allergies: Coded Allergies: No Known Allergies (Unverified , 04/27/20) Medication History Scheduled Aspirin* (Aspirin*), 81 MG ORAL DAILY, (Reported) Patient History Healthcare decision maker Resuscitation status Advanced Directive on File Physical Exam Last 24 Hour Vital Signs Date Time Temp Pulse Resp B/P (MAP) Pulse Ox O2 Delivery O2 Flow Rate FiO2 05/02/20 04:00 97.5 89 18 137/59 (85) 97 05/02/20 04:00 71 05/02/20 00:00 97.2 72 17 131/72 (91) 98 05/02/20 00:00 73 05/01/20 21:00 Room Air 05/01/20 20:55 72 144/81 05/01/20 20:00 73 05/01/20 20:00 97.7 72 18 144/81 (102) 98 05/01/20 16:00 97.1 77 17 134/76 (95) 96 05/01/20 16:00 65 05/01/20 12:00 96.6 82 17 123/68 (86) 95 05/01/20 12:00 65 05/01/20 09:00 Room Air 05/01/20 08:12 98 158/75 05/01/20 08:12 98 05/01/20 08:00 97.9 98 16 158/75 (102) 96 05/01/20 08:00 87 Intake and Output 05/01/20 05/02/20 18:59 06:59 # Bowel Movements 2 Laboratory Tests Test 05/01/20 06:40 05/01/20 10:00 White Blood Count 4.4 K/UL (4.8-10.8) L Red Blood Count 4.67 M/UL (4.70-6.10) L Hemoglobin 11.2 G/DL (14.2-18.0) L Hematocrit 37.5 % (42.0-52.0) L Mean Corpuscular Volume 80 FL (80-99) Mean Corpuscular Hemoglobin 23.9 PG (27.0-31.0) L Mean Corpuscular Hemoglobin Concent 29.8 G/DL (32.0-36.0) L Red Cell Distribution Width 16.3 % (11.6-14.8) H Platelet Count 226 K/UL (150-450) Mean Platelet Volume 10.4 FL (6.5-10.1) H Neutrophils (%) (Auto) 54.6 % (45.0-75.0) Lymphocytes (%) (Auto) 28.5 % (20.0-45.0) Monocytes (%) (Auto) 9.5 % (1.0-10.0) Eosinophils (%) (Auto) 6.1 % (0.0-3.0) H Basophils (%) (Auto) 1.2 % (0.0-2.0) Sodium Level 138 MMOL/L (136-145) Potassium Level 3.4 MMOL/L (3.5-5.1) L Chloride Level 103 MMOL/L (98-107) Carbon Dioxide Level 30 MMOL/L (21-32) Anion Gap 5 mmol/L (5-15) Blood Urea Nitrogen 23 mg/dL (7-18) H Creatinine 1.5 MG/DL (0.55-1.30) H Estimat Glomerular Filtration Rate 54.7 mL/min (>60) Glucose Level 130 MG/DL (74-106) H Calcium Level 8.2 MG/DL (8.5-10.1) L Total Bilirubin 0.8 MG/DL (0.2-1.0) Aspartate Amino Transf (AST/SGOT) 37 U/L (15-37) Alanine Aminotransferase (ALT/SGPT) 44 U/L (12-78) Alkaline Phosphatase 107 U/L (46-116) Total Protein 6.7 G/DL (6.4-8.2) Albumin 1.8 G/DL (3.4-5.0) L Globulin 4.9 g/dL Albumin/Globulin Ratio 0.4 (1.0-2.7) L Height (Feet): 6 Height (Inches): 2.00 Weight (Pounds): 219 Medications Current Medications Medications (Trade) Dose Ordered Sig/Naa Route PRN Reason Start Time Stop Time Status Last Admin Dose Admin Acetaminophen (Tylenol) 650 mg Q6H PRN ORAL Mild Pain (Pain Scale 1-3) 04/28/20 14:45 05/28/20 14:44 Acetaminophen (Tylenol) 650 mg Q6H PRN ORAL Temp >100.5 04/28/20 14:45 05/28/20 14:44 Apixaban (Eliquis) 5 mg BID ORAL 04/27/20 18:00 07/26/20 17:59 05/01/20 17:25 Carvedilol (Coreg) 25 mg EVERY 12 HOURS ORAL 04/29/20 21:00 05/29/20 20:59 05/01/20 20:55 Ceftriaxone Sodium 1 gm/ Dextrose 55 ml @ 110 mls/hr Q24H IVPB 04/29/20 21:00 05/06/20 20:59 05/01/20 20:54 Clonidine HCl (Catapres Tab) 0.1 mg Q2H PRN ORAL For High Blood Pressure 04/28/20 16:15 07/27/20 16:14 04/30/20 08:47 Digoxin (Lanoxin) 0.25 mg DAILY ORAL 04/29/20 09:00 07/28/20 08:59 05/01/20 08:12 Docusate Sodium (Colace) 100 mg TWICE A DAY ORAL 04/30/20 18:00 05/30/20 17:59 04/30/20 17:11 Furosemide (Lasix) 40 mg DAILY IV 04/28/20 09:00 05/28/20 08:59 05/01/20 08:13 Magnesium Oxide (Mag-Ox 400mg) 400 mg EVERY 12 HOURS ORAL 04/28/20 11:00 05/28/20 10:59 05/01/20 20:55 Morphine Sulfate (Morphine Sulfate) 2 mg Q4H PRN IVP Severe Pain (Pain Scale 7-10) 04/27/20 06:00 05/04/20 05:59 Assessment/Plan Assessment/Plan: Hematology Consultation REQ MD Robert Avalos RFC: Leukopenia DOS 05/02/20 ID This is a 80-year-old male who is homeless. He has no past medical history. He presents with chief complaint of swelling and redness with drainage to his lower extremity. He said he injured it while working on [employer] about a month ago. He said it was bruised badly. He said it started getting red and mildly swollen about a week ago. The last 2 to 3 days it started getting more swollen and draining. Tenderness to the lower extremities. Mostly on the right side. He is then putting gauze on it. Denies any fever chills. Denies any new trauma. No nausea no vomiting. Pain is 7 out of 10. Worse with walking. Better with rest. Now cellulitis here is better, potential dc when cleared, still with low wbc. Coded Allergies: No Known Allergies (Unverified , 04/27/20) COVID-19 Screening Contact w/high risk pt: No Experienced COVID-19 symptoms?: No COVID-19 Testing performed FILM LIBRARIAN: No Patient History Past Medical History: none, see triage record, old chart reviewed Past Surgical History: none Pertinent Family History: none Social History: Denies: smoking Immunizations: other Reviewed Nursing Documentation: PMH: Agreed; PSxH: Agreed Nursing Documentation-PMH Past Medical History: No Stated History Review of Systems Eye: Denies: eye pain, blurred vision ENT: Denies: ear pain, nose congestion, throat swelling Respiratory: Denies: cough, shortness of breath Cardiovascular: Denies: chest pain, palpitations Gastrointestinal: Denies: abdominal pain, diarrhea, nausea, vomiting Musculoskeletal: Reports: muscle pain; Denies: back pain, joint pain Skin: Denies: rash Neurological: Denies: headache, numbness Endocrine: Denies: increased thirst, increased urine Hematologic/Lymphatic: Denies: easy bruising All Other Systems: negative except mentioned in HPI Physical Exam Vitals: reviewed, normal General: well appearing, no apparent distress, alert Heent hearing grossly normal, normal pharynx Resp: chest non-tender, lungs clear, normal breath sounds Cardiovascular: regular rate, rhythm, no murmur Gastrointestinal: normal bowel sounds, non tender Musculoskeletal: back normal, normal range of motion++ right lower ext cellulitis. ++ ulceration with oozing serous fluid. Pulses normal. Psychiatric: mood/affect normal Labs: reviewed Imaging: noted Assessment and Recs # Hypercoag disorder with afib, rate control per cards --> continue on anticoag apixaban --> monitor for bleed # Leukopenia is likely related to lower ext cellulitis --> downtrending since admission --> wbc 4.2 --> hep and hiv as needed --> duplex leg is neg # Anemia likely due to chronic disease mild, also related to chf --> trend as needed hgb 11 --> no e/o hemolysis is noted # Cellulitis of both lower extremities --> abx as per Id --> surg eval # Homelessness --> sw eval # Newly diagnosed cardiomyopathy with EF 40%. -> med management and cath per [place] # Atrial fibrillation with rapid ventricular response. --> cards eval # Dvt ppx apix Appreciate consultation and dw Agus Reddy MD May 02, 2020 06:02
--- NOTE | 2020-05-02 07:15 | NUR ---
NURSE HAND-OFF REPORT: Important Events on Shift:Patient Wound care on bilateral lower legs was performed twice Patient Status: Stable Diet: Regular Pending Orders: Pending Results/Labs: Pending MD notification: Latest Vital Signs: Temperature 97.5 , Pulse 89 , B/P 137 /59 , Respiratory Rate 18 , O2 SAT 97 , Room Air, O2 Flow Rate . Vital Sign Comment: EKG Rhythm: Atrial Fibrillation Rhythm change?: N Notified?: Candace Dobbins MD Response: Latest Saleh Fall Score: 85 Fall Risk: High Risk Safety Measures: Call light Within Reach, Bed Alarm Zone 2, Side Rails Side Rails x3, Bed position Low and Locked. Fall Precautions: Yellow Socks Yellow Gown Door Sign Patient Fall Education Report given to Bruce ZHENG.
[2020-05-02 07:49] LABS: BASOPHILS % (AUTO) 0.7 % (0.0-2.0); EOSINOPHILS % (AUTO) 6.9 % (0.0-3.0); HEMATOCRIT 37.7 % (42.0-52.0); LYMPHOCYTES % (AUTO) 33.9 % (20.0-45.0); MEAN CORPUSCULAR VOLUME 80 FL (80-99); MONOCYTES % (AUTO) 11.4 % (1.0-10.0); PLATELET COUNT 223 K/UL (150-450); RED BLOOD COUNT 4.69 M/UL (4.70-6.10); RED CELL DISTRIBUTION WIDTH 15.9 % (11.6-14.8); WHITE BLOOD COUNT 3.9 K/UL (4.8-10.8)
[2020-05-02 08:00] VITALS: BP 141/77
[2020-05-02 08:09] LABS: ANION GAP 4 mmol/L (5-15); BLOOD UREA NITROGEN 23 mg/dL (7-18); CALCIUM 8.2 MG/DL (8.5-10.1); CARBON DIOXIDE 32 MMOL/L (21-32); CHLORIDE 104 MMOL/L (98-107); CREATININE 1.3 MG/DL (0.55-1.30); POTASSIUM 4.1 MMOL/L (3.5-5.1); SODIUM 140 MMOL/L (136-145)
--- NOTE | 2020-05-02 08:15 | NUR ---
NURSE NOTES: Received report from Fouzia Cee RN. Patient sitting up in bed, eating breakfast and watching television, IV patent in right hand 22 gauge saline locked, bed in lowest position, call light within reach, wheels locked, side rails up x 2, on room air, respirations at 16 breaths per minute, in no apparent distress.
[2020-05-02] MEDS: Docusate 100mg cap ORAL SCH ×3 (09:00→18:00)
--- NOTE | 2020-05-02 09:18 | General Progress Note ---
Subjective Constitutional: Reports: weakness Allergies: Coded Allergies: No Known Allergies (Unverified , 04/27/20) All Systems: reviewed and negative except above Subjective calm in bed Objective Last 24 Hour Vital Signs Date Time Temp Pulse Resp B/P (MAP) Pulse Ox O2 Delivery O2 Flow Rate FiO2 05/02/20 08:00 97.7 76 19 141/77 (98) 95 05/02/20 08:00 73 05/02/20 04:00 97.5 89 18 137/59 (85) 97 05/02/20 04:00 71 05/02/20 00:00 97.2 72 17 131/72 (91) 98 05/02/20 00:00 73 05/01/20 21:00 Room Air 05/01/20 20:55 72 144/81 05/01/20 20:00 73 05/01/20 20:00 97.7 72 18 144/81 (102) 98 05/01/20 16:00 97.1 77 17 134/76 (95) 96 05/01/20 16:00 65 05/01/20 12:00 96.6 82 17 123/68 (86) 95 05/01/20 12:00 65 Intake and Output 05/01/20 05/02/20 19:00 07:00 Intake Total 300 ml Output Total 450 ml Balance -150 ml Intake Oral 300 ml Output Urine Total 450 ml # Bowel Movements 2 Laboratory Tests 05/01/20 10:00: Sodium Level 138, Potassium Level 3.4L, Chloride Level 103, Carbon Dioxide Level 30, Anion Gap 5, Blood Urea Nitrogen 23H, Creatinine 1.5H, Estimat Glomerular Filtration Rate 54.7, Glucose Level 130H, Calcium Level 8.2L, Total Bilirubin 0.8, Aspartate Amino Transf (AST/SGOT) 37, Alanine Aminotransferase (ALT/SGPT) 44, Alkaline Phosphatase 107, Total Protein 6.7, Albumin 1.8L, Globulin 4.9, Albumin/Globulin Ratio 0.4L 05/02/20 05:30: Sodium Level 140, Potassium Level 4.1, Chloride Level 104, Carbon Dioxide Level 32, Anion Gap 4L, Blood Urea Nitrogen 23H, Creatinine 1.3, Estimat Glomerular Filtration Rate > 60, Glucose Level 91, Calcium Level 8.2L, White Blood Count 3.9L, Red Blood Count 4.69L, Hemoglobin 11.0L, Hematocrit 37.7L, Mean Corpuscular Volume 80, Mean Corpuscular Hemoglobin 23.5L, Mean Corpuscular Hemoglobin Concent 29.2L, Red Cell Distribution Width 15.9H, Platelet Count 223, Mean Platelet Volume 9.8, Neutrophils (%) (Auto) 47.0, Lymphocytes (%) (Auto) 33.9, Monocytes (%) (Auto) 11.4H, Eosinophils (%) (Auto) 6.9H, Basophils (%) (Auto) 0.7 Height (Feet): 6 Height (Inches): 2.00 Weight (Pounds): 219 General Appearance: lethargic EENT: normal ENT inspection Neck: normal alignment Cardiovascular: normal peripheral pulses, normal rate, regular rhythm Respiratory/Chest: chest wall non-tender, lungs clear, normal breath sounds Abdomen: normal bowel sounds, non tender, soft Extremities: normal inspection Edema: no edema noted Arm (L), no edema noted Arm (R), no edema noted Leg (L), no edema noted Leg (R), no edema noted Pedal (L), no edema noted Pedal (R), no edema noted Generalized Neurologic: responsive, motor weakness Skin: normal pigmentation, warm/dry Assessment/Plan Problem List: (1) Afib ICD Codes: I48.91 - Unspecified atrial fibrillation SNOMED: 99843996 (2) Homelessness ICD Codes: Z59.0 - Homelessness; L03.116 - Cellulitis of left lower limb SNOMED: 60493021 (3) Cellulitis of both lower extremities ICD Codes: L03.115 - Cellulitis of right lower limb; L03.116 - Cellulitis of left lower limb SNOMED: 554902531 Status: stable, progressing Assessment/Plan: cardio f/u wound care abx cbc bmp am aru if clear Robert Avalos DO May 02, 2020 09:18
[2020-05-02] MEDS: Magnesium Oxide 400mg tab ORAL SCH ×2 (09:44→21:19)
[2020-05-02] MEDS: Eliquis 5mg tablet ORAL SCH ×2 (09:44→17:19)
[2020-05-02] MEDS: Carvedilol 25mg Tab ORAL SCH ×2 (09:44→21:19)
[2020-05-02 12:00] VITALS: BP 146/77
--- NOTE | 2020-05-02 15:46 | Surgery Progress Note ---
Surgery Progress Note Subjective Symptoms: improved, tolerating diet, passing flatus, BM, pain decreased Objective Last 24 Hour Vital Signs Date Time Temp Pulse Resp B/P (MAP) Pulse Ox O2 Delivery O2 Flow Rate FiO2 05/02/20 12:00 69 05/02/20 12:00 98.4 64 19 146/77 (100) 99 05/02/20 09:44 73 141/77 05/02/20 09:44 73 05/02/20 09:00 Room Air 05/02/20 08:00 97.7 76 19 141/77 (98) 95 05/02/20 08:00 73 05/02/20 04:00 97.5 89 18 137/59 (85) 97 05/02/20 04:00 71 05/02/20 00:00 97.2 72 17 131/72 (91) 98 05/02/20 00:00 73 05/01/20 21:00 Room Air 05/01/20 20:55 72 144/81 05/01/20 20:00 73 05/01/20 20:00 97.7 72 18 144/81 (102) 98 05/01/20 16:00 97.1 77 17 134/76 (95) 96 05/01/20 16:00 65 I&O Intake and Output 05/01/20 05/02/20 19:00 07:00 Intake Total 300 ml Output Total 450 ml Balance -150 ml Intake Oral 300 ml Output Urine Total 450 ml # Bowel Movements 2 Dressing: dry Wound: clean Cardiovascular: RSR Respiratory: clear Abdomen: soft, non-tender, present bowel sounds Extremities: no edema, no tenderness, no cyanosis, other Laboratory Tests Test 05/02/20 05:30 White Blood Count 3.9 K/UL (4.8-10.8) L Red Blood Count 4.69 M/UL (4.70-6.10) L Hemoglobin 11.0 G/DL (14.2-18.0) L Hematocrit 37.7 % (42.0-52.0) L Mean Corpuscular Volume 80 FL (80-99) Mean Corpuscular Hemoglobin 23.5 PG (27.0-31.0) L Mean Corpuscular Hemoglobin Concent 29.2 G/DL (32.0-36.0) L Red Cell Distribution Width 15.9 % (11.6-14.8) H Platelet Count 223 K/UL (150-450) Mean Platelet Volume 9.8 FL (6.5-10.1) Neutrophils (%) (Auto) 47.0 % (45.0-75.0) Lymphocytes (%) (Auto) 33.9 % (20.0-45.0) Monocytes (%) (Auto) 11.4 % (1.0-10.0) H Eosinophils (%) (Auto) 6.9 % (0.0-3.0) H Basophils (%) (Auto) 0.7 % (0.0-2.0) Sodium Level 140 MMOL/L (136-145) Potassium Level 4.1 MMOL/L (3.5-5.1) Chloride Level 104 MMOL/L (98-107) Carbon Dioxide Level 32 MMOL/L (21-32) Anion Gap 4 mmol/L (5-15) L Blood Urea Nitrogen 23 mg/dL (7-18) H Creatinine 1.3 MG/DL (0.55-1.30) Estimat Glomerular Filtration Rate > 60 mL/min (>60) Glucose Level 91 MG/DL (74-106) Calcium Level 8.2 MG/DL (8.5-10.1) L Hepatitis A IgM Antibody Pending Hepatitis B Surface Antigen Pending Hepatitis B Core IgM Antibody Pending Hepatitis C Antibody Pending HIV (1&2) Antibody Rapid Negative (NEGATIVE) Plan Problems: (1) Homelessness (2) Cellulitis of both lower extremities Assessment & Plan: Patient present on admission with bilateral lower extremity cellulitis and edema. Recent trauma and persistently has had some edema now with superimposed infection cellulitis. No abscess identified. Wounds noted with skin breakdown small ulcerations in bilateral lower extremities right worse than left. Seemingly fluid overloaded as well. No acute surgical intervention recommended this time. Will need local wound care. Wash wounds daily with normal saline. Apply Thera honey to open ulcerations followed by nonadherent dressing and wrap with Kerlix. Keep leg elevated above with pillow. Turn every 2 hours. Offload pressures. Nutritional optimization. Will follow with local care and recommendations. Thank you for letting participate patient's care. Antibiotics per infectious disease. improving edema / cellulitis improved wounds stable cont diet cont abx as per ID keep legs elevated improving d/c planning covid neg thank you Duplex Doppler interrogation of the veins in both lower extremity is performed from the common femoral vein to the popliteal vein. Normal venous compressibility demonstrated throughout. No thrombus identified. Waveform analysis shows good respiratory phasicity and augmentation. There is mild subcutaneous soft tissue edema. IMPRESSION: No evidence of deep venous thrombosis involving the lower extremities. Marquise Zamorano May 02, 2020 15:46
[2020-05-02 16:00] VITALS: BP 121/74
--- NOTE | 2020-05-02 17:59 | Cardiac Electrophysiology PN ---
Assessment/Plan Assessment/Plan 1.Newly diagnosed cardiomyopathy with EF 40%. Continue Coreg 25 bid, Digoxin 0.25 daily and Lasix 40 iv daily Will need cardiac catheterization for further evaluation of his coronaries, especially in view of inferolateral ischemia on a 12-lead EKG. 2. Atrial fibrillation with rapid ventricular response. Rate better on Coreg 25 bid and Digoxin 0.25 daily. Dig level 0.5 Already on anticoagulation with Eliquis 5 mg b.i.d. 3. Bilateral lower extremity cellulitis. On antibiotic per ID and Dr Jaun STOUT RN Subjective Subjective On tele and rate is controlled in atrial fib. No CP or SOB. Objective Last 24 Hour Vital Signs Date Time Temp Pulse Resp B/P (MAP) Pulse Ox O2 Delivery O2 Flow Rate FiO2 05/02/20 16:00 97.9 75 18 121/74 (90) 95 05/02/20 16:00 69 05/02/20 12:00 69 05/02/20 12:00 98.4 64 19 146/77 (100) 99 05/02/20 09:44 73 141/77 05/02/20 09:44 73 05/02/20 09:00 Room Air 05/02/20 08:00 97.7 76 19 141/77 (98) 95 05/02/20 08:00 73 05/02/20 04:00 97.5 89 18 137/59 (85) 97 05/02/20 04:00 71 05/02/20 00:00 97.2 72 17 131/72 (91) 98 05/02/20 00:00 73 05/01/20 21:00 Room Air 05/01/20 20:55 72 144/81 05/01/20 20:00 73 05/01/20 20:00 97.7 72 18 144/81 (102) 98 Intake and Output 05/01/20 05/02/20 19:00 07:00 Intake Total 300 ml Output Total 450 ml Balance -150 ml Intake Oral 300 ml Output Urine Total 450 ml # Bowel Movements 2 Laboratory Tests Test 05/02/20 05:30 White Blood Count 3.9 K/UL (4.8-10.8) L Red Blood Count 4.69 M/UL (4.70-6.10) L Hemoglobin 11.0 G/DL (14.2-18.0) L Hematocrit 37.7 % (42.0-52.0) L Mean Corpuscular Volume 80 FL (80-99) Mean Corpuscular Hemoglobin 23.5 PG (27.0-31.0) L Mean Corpuscular Hemoglobin Concent 29.2 G/DL (32.0-36.0) L Red Cell Distribution Width 15.9 % (11.6-14.8) H Platelet Count 223 K/UL (150-450) Mean Platelet Volume 9.8 FL (6.5-10.1) Neutrophils (%) (Auto) 47.0 % (45.0-75.0) Lymphocytes (%) (Auto) 33.9 % (20.0-45.0) Monocytes (%) (Auto) 11.4 % (1.0-10.0) H Eosinophils (%) (Auto) 6.9 % (0.0-3.0) H Basophils (%) (Auto) 0.7 % (0.0-2.0) Sodium Level 140 MMOL/L (136-145) Potassium Level 4.1 MMOL/L (3.5-5.1) Chloride Level 104 MMOL/L (98-107) Carbon Dioxide Level 32 MMOL/L (21-32) Anion Gap 4 mmol/L (5-15) L Blood Urea Nitrogen 23 mg/dL (7-18) H Creatinine 1.3 MG/DL (0.55-1.30) Estimat Glomerular Filtration Rate > 60 mL/min (>60) Glucose Level 91 MG/DL (74-106) Calcium Level 8.2 MG/DL (8.5-10.1) L Hepatitis A IgM Antibody Pending Hepatitis B Surface Antigen Pending Hepatitis B Core IgM Antibody Pending Hepatitis C Antibody Pending HIV (1&2) Antibody Rapid Negative (NEGATIVE) Microbiology Date/Time Source Procedure Growth Status 04/30/20 16:15 Nasopharynx SARS-CoV-2 RdRp Gene Assay - Final Complete 04/30/20 15:41 Rectum VRE Culture - Final NO VANCOMYCIN RESISTANT ENTEROCOCCUS ... Complete 04/30/20 15:41 Nose MRSA Culture - Final NO METHICILLIN RESISTANT STAPH AUREUS... Complete Objective NECK: mild JVD. LUNGS: Decreased breath sounds. CARDIOVASCULAR: Irregularly irregular S1 and S2 with no gallop. ABDOMEN: Soft. EXTREMITIES: Bilateral lower extremity edema and cellulitis. Adrian Rahman MD May 02, 2020 17:59
--- NOTE | 2020-05-02 18:38 | NUR ---
NURSE HAND-OFF REPORT: Important Events on Shift: Patient afib from mid 40's to high 80's bpm, Cellulitis improving, skin drying and flaking signifies that patient fluid overload corrected and bilateral lower extremities are healing well, will need cardiac cath to evaluate coranary arteries in view of inferolateral ischemia per Dr. Adrian Rahman, digoxin level in am. Patient Status: Good, improving. Diet: Regular Pending Orders: Digoxin level in a.m. Pending Results/Labs:N/A Pending MD notification:N/A Latest Vital Signs: Temperature 97.9 , Pulse 69 , B/P 121 /74 , Respiratory Rate 18 , O2 SAT 95 , Room Air, O2 Flow Rate . Vital Sign Comment: Stable EKG Rhythm: Atrial Fibrillation Rhythm change?: N Notified?: Candace Dobbins MD Response: Latest Saleh Fall Score: 85 Fall Risk: High Risk Safety Measures: Call light Within Reach, Bed Alarm Zone 2, Side Rails Side Rails x3, Bed position Low and Locked. Fall Precautions: Yellow Socks Yellow Gown Door Sign Patient Fall Education Report will be given to Fouzia Cee RN, upon arrival. Addendum: 05/02/20 at 1900 by NAT ADAME RN Report given to Fouzia Villegas RN.
--- NOTE | 2020-05-02 19:10 | NUR ---
NURSE NOTES: Received report from Bruce ZHENG. Patient is alert oriented x4, able to make needs known. Patient is siting in the bed side chair with a blanket. No signs of acute distress noted. No pain reported at this time. IV site right hand 22G locked, patent and flushed. No erythema or bleeding noted. Patient is able to ambulate steadily. Patent was educated on how to use the call light to for assistance and before trying to get up. Patient bed is locked and in lowest position. Call light with in reach. Will continue plan of care.
[2020-05-02 20:00] VITALS: BP 139/80
[2020-05-02] MEDS: cefTRIAXone 1 GM in D5W 55 ML IVPB SCH (21:19)
--- NOTE | 2020-05-02 22:30 | NUR ---
NURSE NOTES: Preformed wound care on patient bilateral lower leg. Cleansed the wound with saline, applied Therahoney and then placed non-adherent Danielle on the wounds. Then rapped with Kathy.
[2020-05-03] VITALS: BP 141/82
[2020-05-03 04:00] VITALS: BP 148/71
--- NOTE | 2020-05-03 06:38 | Hematology/Onc Progress Note ---
Assessment/Plan Assessment/Plan Assessment and Recs # Hypercoag disorder with afib, rate control per cards --> continue on anticoag apixaban --> monitor for bleed # Leukopenia is likely related to lower ext cellulitis --> downtrending since admission --> wbc 4.2->3.9 --> hep and hiv as needed --> duplex leg is neg # Anemia likely due to chronic disease mild, also related to chf --> trend as needed hgb 11->11 --> no e/o hemolysis is noted # Cellulitis of both lower extremities --> abx as per Id --> surg eval -> wound care, therahoney, kerlix # Homelessness --> sw eval # Newly diagnosed cardiomyopathy with EF 40%. -> med management and cath per Lacey # Atrial fibrillation with rapid ventricular response. --> cards eval # Dvt ppx apix Appreciate consultation and dw Rn Subjective Constitutional: Denies: no symptoms, chills, fever, malaise, weakness, other HEENT: Denies: no symptoms, eye pain, blurred vision, tearing, double vision, ear pain, ear discharge, nose pain, nose congestion, throat pain, throat swelling, mouth pain, mouth swelling, other Cardiovascular: Denies: no symptoms, chest pain, edema, irregular heart rate, lightheadedness, palpitations, syncope, other Respiratory: Denies: no symptoms, cough, shortness of breath, SOB with excertion, SOB at rest, sputum, wheezing, other Neurologic/Psychiatric: Denies: no symptoms, anxiety, depressed, emotional problems, headache, numbness, paresthesia, pre-existing deficit, seizure, tingling, tremors, weakness, other Endocrine: Denies: no symptoms, excessive sweating, flushing, intolerance to cold, intolerance to heat, increased hunger, increased thirst, increased urine, unexplained weight gain, unexplained weight loss, other Hematologic/Lymphatic: Denies: no symptoms, anemia, easy bleeding, easy bruising, adenopathy, other Allergies: Coded Allergies: No Known Allergies (Unverified , 04/27/20) Subjective 05/03 labs noted, no bleeding, meds reviewed, on eliquis per cards, wound care Objective Objective Current Medications Medications (Trade) Dose Ordered Sig/Naa Route PRN Reason Start Time Stop Time Status Last Admin Dose Admin Acetaminophen (Tylenol) 650 mg Q6H PRN ORAL Mild Pain (Pain Scale 1-3) 04/28/20 14:45 05/28/20 14:44 Acetaminophen (Tylenol) 650 mg Q6H PRN ORAL Temp >100.5 04/28/20 14:45 05/28/20 14:44 Apixaban (Eliquis) 5 mg BID ORAL 04/27/20 18:00 07/26/20 17:59 05/02/20 17:19 Carvedilol (Coreg) 25 mg EVERY 12 HOURS ORAL 04/29/20 21:00 05/29/20 20:59 05/02/20 21:19 Ceftriaxone Sodium 1 gm/ Dextrose 55 ml @ 110 mls/hr Q24H IVPB 04/29/20 21:00 05/06/20 20:59 05/02/20 21:19 Clonidine HCl (Catapres Tab) 0.1 mg Q2H PRN ORAL For High Blood Pressure 04/28/20 16:15 07/27/20 16:14 04/30/20 08:47 Digoxin (Lanoxin) 0.25 mg DAILY ORAL 04/29/20 09:00 07/28/20 08:59 05/02/20 09:44 Docusate Sodium (Colace) 100 mg TWICE A DAY ORAL 04/30/20 18:00 05/30/20 17:59 04/30/20 17:11 Furosemide (Lasix) 40 mg DAILY IV 04/28/20 09:00 05/28/20 08:59 05/02/20 09:43 Magnesium Oxide (Mag-Ox 400mg) 400 mg EVERY 12 HOURS ORAL 04/28/20 11:00 05/28/20 10:59 05/02/20 21:19 Morphine Sulfate (Morphine Sulfate) 2 mg Q4H PRN IVP Severe Pain (Pain Scale 7-10) 04/27/20 06:00 05/04/20 05:59 Last 24 Hour Vital Signs Date Time Temp Pulse Resp B/P (MAP) Pulse Ox O2 Delivery O2 Flow Rate FiO2 05/03/20 04:00 98.1 74 17 148/71 (96) 95 05/03/20 04:00 86 05/03/20 00:00 68 05/03/20 00:00 98.1 78 17 141/82 (101) 97 05/02/20 21:19 70 139/80 05/02/20 21:00 Room Air 05/02/20 20:00 98.2 70 18 139/80 (99) 95 05/02/20 20:00 74 05/02/20 16:00 97.9 75 18 121/74 (90) 95 05/02/20 16:00 69 05/02/20 12:00 69 05/02/20 12:00 98.4 64 19 146/77 (100) 99 05/02/20 09:44 73 141/77 05/02/20 09:44 73 05/02/20 09:00 Room Air 05/02/20 08:00 97.7 76 19 141/77 (98) 95 05/02/20 08:00 73 05/02/20 04:00 97.5 89 18 137/59 (85) 97 05/02/20 04:00 71 05/02/20 00:00 97.2 72 17 131/72 (91) 98 05/02/20 00:00 73 05/01/20 21:00 Room Air 05/01/20 20:55 72 144/81 05/01/20 20:00 73 05/01/20 20:00 97.7 72 18 144/81 (102) 98 05/01/20 16:00 97.1 77 17 134/76 (95) 96 05/01/20 16:00 65 05/01/20 12:00 96.6 82 17 123/68 (86) 95 05/01/20 12:00 65 05/01/20 09:00 Room Air 05/01/20 08:12 98 158/75 05/01/20 08:12 98 05/01/20 08:00 97.9 98 16 158/75 (102) 96 05/01/20 08:00 87 Intake and Output 05/02/20 05/03/20 19:00 07:00 Intake Total 930 ml 540 ml Output Total 600 ml 650 ml Balance 330 ml -110 ml Intake Oral 930 ml 540 ml Output Urine Total 600 ml 650 ml # Bowel Movements 1 1 Labs Test 05/01/20 06:40 05/01/20 10:00 05/02/20 05:30 White Blood Count 4.4 K/UL (4.8-10.8) 3.9 K/UL (4.8-10.8) Red Blood Count 4.67 M/UL (4.70-6.10) 4.69 M/UL (4.70-6.10) Hemoglobin 11.2 G/DL (14.2-18.0) 11.0 G/DL (14.2-18.0) Hematocrit 37.5 % (42.0-52.0) 37.7 % (42.0-52.0) Mean Corpuscular Volume 80 FL (80-99) 80 FL (80-99) Mean Corpuscular Hemoglobin 23.9 PG (27.0-31.0) 23.5 PG (27.0-31.0) Mean Corpuscular Hemoglobin Concent 29.8 G/DL (32.0-36.0) 29.2 G/DL (32.0-36.0) Red Cell Distribution Width 16.3 % (11.6-14.8) 15.9 % (11.6-14.8) Platelet Count 226 K/UL (150-450) 223 K/UL (150-450) Mean Platelet Volume 10.4 FL (6.5-10.1) 9.8 FL (6.5-10.1) Neutrophils (%) (Auto) 54.6 % (45.0-75.0) 47.0 % (45.0-75.0) Lymphocytes (%) (Auto) 28.5 % (20.0-45.0) 33.9 % (20.0-45.0) Monocytes (%) (Auto) 9.5 % (1.0-10.0) 11.4 % (1.0-10.0) Eosinophils (%) (Auto) 6.1 % (0.0-3.0) 6.9 % (0.0-3.0) Basophils (%) (Auto) 1.2 % (0.0-2.0) 0.7 % (0.0-2.0) Sodium Level 138 MMOL/L (136-145) 140 MMOL/L (136-145) Potassium Level 3.4 MMOL/L (3.5-5.1) 4.1 MMOL/L (3.5-5.1) Chloride Level 103 MMOL/L (98-107) 104 MMOL/L (98-107) Carbon Dioxide Level 30 MMOL/L (21-32) 32 MMOL/L (21-32) Anion Gap 5 mmol/L (5-15) 4 mmol/L (5-15) Blood Urea Nitrogen 23 mg/dL (7-18) 23 mg/dL (7-18) Creatinine 1.5 MG/DL (0.55-1.30) 1.3 MG/DL (0.55-1.30) Estimat Glomerular Filtration Rate 54.7 mL/min (>60) > 60 mL/min (>60) Glucose Level 130 MG/DL (74-106) 91 MG/DL (74-106) Calcium Level 8.2 MG/DL (8.5-10.1) 8.2 MG/DL (8.5-10.1) Total Bilirubin 0.8 MG/DL (0.2-1.0) Aspartate Amino Transf (AST/SGOT) 37 U/L (15-37) Alanine Aminotransferase (ALT/SGPT) 44 U/L (12-78) Alkaline Phosphatase 107 U/L (46-116) Total Protein 6.7 G/DL (6.4-8.2) Albumin 1.8 G/DL (3.4-5.0) Globulin 4.9 g/dL Albumin/Globulin Ratio 0.4 (1.0-2.7) HIV (1&2) Antibody Rapid Negative (NEGATIVE) Height (Feet): 6 Height (Inches): 2.00 Weight (Pounds): 219 Agus Espinoza MD May 03, 2020 06:38
[2020-05-03 06:59] LABS: HEMATOCRIT 35.8 % (42.0-52.0); HEMOGLOBIN 10.5 G/DL (14.2-18.0); LYMPHOCYTES % (AUTO) 27.9 % (20.0-45.0); MEAN CORPUSCULAR VOLUME 80 FL (80-99); MONOCYTES % (AUTO) 14.2 % (1.0-10.0); PLATELET COUNT 236 K/UL (150-450); RED BLOOD COUNT 4.49 M/UL (4.70-6.10); RED CELL DISTRIBUTION WIDTH 15.6 % (11.6-14.8); WHITE BLOOD COUNT 3.7 K/UL (4.8-10.8)
[2020-05-03 07:06] LABS: ANION GAP 2 mmol/L (5-15); BLOOD UREA NITROGEN 23 mg/dL (7-18); CALCIUM 8.3 MG/DL (8.5-10.1); CARBON DIOXIDE 31 MMOL/L (21-32); CHLORIDE 106 MMOL/L (98-107); CREATININE 1.3 MG/DL (0.55-1.30); POTASSIUM 3.8 MMOL/L (3.5-5.1); SODIUM 139 MMOL/L (136-145)
--- NOTE | 2020-05-03 07:25 | NUR ---
NURSE HAND-OFF REPORT: Important Events on Shift: Wound care was complted in the PM 05/02. Wash wounds daily with normal saline. Apply Thera honey to open ulcerations followed by nonadherent dressing and wrap with Kerlix. Keep leg elevated above with pillow. Patient Status: Stable Diet: Regular Pending Orders: Pending Results/Labs: Pending MD notification: Latest Vital Signs: Temperature 98.1 , Pulse 86 , B/P 148 /71 , Respiratory Rate 17 , O2 SAT 95 , Room Air, O2 Flow Rate . Vital Sign Comment: EKG Rhythm: Atrial Fibrillation Rhythm change?: N Notified?: Candace Dobbins MD Response: Latest Saleh Fall Score: 85 Fall Risk: High Risk Safety Measures: Call light Within Reach, Bed Alarm Zone 2, Side Rails Side Rails x2, Bed position Low and Locked. Fall Precautions: Yellow Socks Yellow Gown Door Sign Patient Fall Education Report given to Mildred ZHENG .
--- NOTE | 2020-05-03 07:27 | NUR ---
NURSE NOTES: Report received from Fouzia ZHENG. Patient seen on rounds, awake, up in bed, not in distress, no complaints of pain. Afib controlled, HR 70's. PIV on right hand patent and intact. Wound dressing on bilateral lower extremities intact, feet elevated on pillows. Bed low and locked, siderails up x2, call light placed within reach and instructed to call nurse for assistance. Will continue to monitor.
[2020-05-03 08:00] VITALS: BP 154/81
[2020-05-03] MEDS: Magnesium Oxide 400mg tab ORAL SCH ×2 (08:04→21:54)
[2020-05-03] MEDS: Eliquis 5mg tablet ORAL SCH (08:05)
[2020-05-03] MEDS: Carvedilol 25mg Tab ORAL SCH ×2 (08:05→21:55)
[2020-05-03] MEDS: Docusate 100mg cap ORAL SCH ×2 (08:07→17:39)
--- NOTE | 2020-05-03 09:54 | General Progress Note ---
Subjective Constitutional: Reports: weakness Allergies: Coded Allergies: No Known Allergies (Unverified , 04/27/20) All Systems: reviewed and negative except above Subjective calm in bed Objective Last 24 Hour Vital Signs Date Time Temp Pulse Resp B/P (MAP) Pulse Ox O2 Delivery O2 Flow Rate FiO2 05/03/20 09:00 Room Air 05/03/20 08:05 73 154/81 05/03/20 08:04 73 05/03/20 08:00 71 05/03/20 08:00 98.8 73 20 154/81 (105) 94 05/03/20 04:00 98.1 74 17 148/71 (96) 95 05/03/20 04:00 86 05/03/20 00:00 68 05/03/20 00:00 98.1 78 17 141/82 (101) 97 05/02/20 21:19 70 139/80 05/02/20 21:00 Room Air 05/02/20 20:00 98.2 70 18 139/80 (99) 95 05/02/20 20:00 74 05/02/20 16:00 97.9 75 18 121/74 (90) 95 05/02/20 16:00 69 05/02/20 12:00 69 05/02/20 12:00 98.4 64 19 146/77 (100) 99 Intake and Output 05/02/20 05/03/20 19:00 07:00 Intake Total 930 ml 540 ml Output Total 600 ml 650 ml Balance 330 ml -110 ml Intake Oral 930 ml 540 ml Output Urine Total 600 ml 650 ml # Bowel Movements 1 1 Laboratory Tests 05/03/20 06:00: White Blood Count 3.7L, Red Blood Count 4.49L, Hemoglobin 10.5L, Hematocrit 35.8L, Mean Corpuscular Volume 80, Mean Corpuscular Hemoglobin 23.5L, Mean Corpuscular Hemoglobin Concent 29.4L, Red Cell Distribution Width 15.6H, Platelet Count 236, Mean Platelet Volume 11.0H, Neutrophils (%) (Auto) 51.0, Lymphocytes (%) (Auto) 27.9, Monocytes (%) (Auto) 14.2H, Eosinophils (%) (Auto) 6.0H, Basophils (%) (Auto) 1.0, Sodium Level 139, Potassium Level 3.8, Chloride Level 106, Carbon Dioxide Level 31, Anion Gap 2L, Blood Urea Nitrogen 23H, Creatinine 1.3, Estimat Glomerular Filtration Rate > 60, Glucose Level 92, Calcium Level 8.3L, Digoxin Level 0.8 Height (Feet): 6 Height (Inches): 2.00 Weight (Pounds): 219 General Appearance: lethargic EENT: normal ENT inspection Neck: normal alignment Cardiovascular: normal peripheral pulses, normal rate, regular rhythm Respiratory/Chest: chest wall non-tender, lungs clear, normal breath sounds Abdomen: normal bowel sounds, non tender, soft Extremities: normal inspection Edema: no edema noted Arm (L), no edema noted Arm (R), no edema noted Leg (L), no edema noted Leg (R), no edema noted Pedal (L), no edema noted Pedal (R), no edema noted Generalized Neurologic: motor weakness Skin: normal pigmentation, warm/dry Assessment/Plan Problem List: (1) Afib ICD Codes: I48.91 - Unspecified atrial fibrillation SNOMED: 56742456 (2) Homelessness ICD Codes: Z59.0 - Homelessness; L03.116 - Cellulitis of left lower limb SNOMED: 39919916 (3) Cellulitis of both lower extremities ICD Codes: L03.115 - Cellulitis of right lower limb; L03.116 - Cellulitis of left lower limb SNOMED: 844035792 Status: stable, progressing Assessment/Plan: cardio f/u wound care abx cbc bmp am aru if clear Robert Avlaos DO May 03, 2020 09:54
[2020-05-03] MEDS ORDERED: Morphine Sulfate 2mg/ml Inj(IV/IM USE ONLY) IVP PRN (10:00)
--- NOTE | 2020-05-03 10:38 | Cardiac Electrophysiology PN ---
Assessment/Plan Assessment/Plan 1.Newly diagnosed cardiomyopathy with EF 40%. Continue Coreg 25 bid, Digoxin 0.25 daily and Lasix 40 iv daily Will transfer to [facility] for cardiac catheterization for further evaluation of his coronaries, especially in view of inferolateral ischemia DW patient the risks and benefits and he agrees to proceed 2. Atrial fibrillation with rapid ventricular response. Rate better on Coreg 25 bid and Digoxin 0.25 daily. Dig level 0.5 Change Eliquis 5 mg b.i.d. to Lovenox sq bid 3. Bilateral lower extremity cellulitis. On antibiotic per ID and Dr Jaun STOUT RN and Dr Avalos Subjective Subjective On tele and rate is controlled in atrial fib in 70s. No CP or SOB. Objective Last 24 Hour Vital Signs Date Time Temp Pulse Resp B/P (MAP) Pulse Ox O2 Delivery O2 Flow Rate FiO2 05/03/20 09:00 Room Air 05/03/20 08:05 73 154/81 05/03/20 08:04 73 05/03/20 08:00 71 05/03/20 08:00 98.8 73 20 154/81 (105) 94 05/03/20 04:00 98.1 74 17 148/71 (96) 95 05/03/20 04:00 86 05/03/20 00:00 68 05/03/20 00:00 98.1 78 17 141/82 (101) 97 05/02/20 21:19 70 139/80 05/02/20 21:00 Room Air 05/02/20 20:00 98.2 70 18 139/80 (99) 95 05/02/20 20:00 74 05/02/20 16:00 97.9 75 18 121/74 (90) 95 05/02/20 16:00 69 05/02/20 12:00 69 05/02/20 12:00 98.4 64 19 146/77 (100) 99 Intake and Output 05/02/20 05/03/20 19:00 07:00 Intake Total 930 ml 540 ml Output Total 600 ml 650 ml Balance 330 ml -110 ml Intake Oral 930 ml 540 ml Output Urine Total 600 ml 650 ml # Bowel Movements 1 1 Laboratory Tests Test 05/03/20 06:00 White Blood Count 3.7 K/UL (4.8-10.8) L Red Blood Count 4.49 M/UL (4.70-6.10) L Hemoglobin 10.5 G/DL (14.2-18.0) L Hematocrit 35.8 % (42.0-52.0) L Mean Corpuscular Volume 80 FL (80-99) Mean Corpuscular Hemoglobin 23.5 PG (27.0-31.0) L Mean Corpuscular Hemoglobin Concent 29.4 G/DL (32.0-36.0) L Red Cell Distribution Width 15.6 % (11.6-14.8) H Platelet Count 236 K/UL (150-450) Mean Platelet Volume 11.0 FL (6.5-10.1) H Neutrophils (%) (Auto) 51.0 % (45.0-75.0) Lymphocytes (%) (Auto) 27.9 % (20.0-45.0) Monocytes (%) (Auto) 14.2 % (1.0-10.0) H Eosinophils (%) (Auto) 6.0 % (0.0-3.0) H Basophils (%) (Auto) 1.0 % (0.0-2.0) Sodium Level 139 MMOL/L (136-145) Potassium Level 3.8 MMOL/L (3.5-5.1) Chloride Level 106 MMOL/L (98-107) Carbon Dioxide Level 31 MMOL/L (21-32) Anion Gap 2 mmol/L (5-15) L Blood Urea Nitrogen 23 mg/dL (7-18) H Creatinine 1.3 MG/DL (0.55-1.30) Estimat Glomerular Filtration Rate > 60 mL/min (>60) Glucose Level 92 MG/DL (74-106) Calcium Level 8.3 MG/DL (8.5-10.1) L Digoxin Level 0.8 NG/ML (0.5-2.0) Microbiology Date/Time Source Procedure Growth Status 04/30/20 16:15 Nasopharynx SARS-CoV-2 RdRp Gene Assay - Final Complete 04/30/20 15:41 Rectum VRE Culture - Final NO VANCOMYCIN RESISTANT ENTEROCOCCUS ... Complete 04/30/20 15:41 Rectum - Final NO CARBAPENEM-RESISTANT ENTEROBACTERI... Complete 04/30/20 15:41 Nose MRSA Culture - Final NO METHICILLIN RESISTANT STAPH AUREUS... Complete Objective NECK: mild JVD. LUNGS: Decreased breath sounds. CARDIOVASCULAR: Irregularly irregular S1 and S2 with no gallop. ABDOMEN: Soft. EXTREMITIES: Bilateral lower extremity edema and cellulitis. Adrian Rahman MD May 03, 2020 10:38
--- NOTE | 2020-05-03 10:59 | NUR ---
*-*DISCHARGE PLANNING*-* PATIENT HAS BEEN REFERRED TO: [facility] P: [phone]
--- NOTE | 2020-05-03 11:56 | NUR ---
TRANSFER UPDATE ORDER FOR TRANSFER FOR CARDIAC CATH NOTED CLINICALS HAVE BEEN FAXED TO [facility] CC [employer] T: [phone] F: [phone] CALLED AND SPOKE WITH BULB PLANTER,JACOB. SHE SAID SHE WILL PROBABLY NOT HAVE A BED UNTIL THIS AFTERNOON
[2020-05-03 12:00] VITALS: BP 143/64
--- NOTE | 2020-05-03 12:52 | Infectious Diseases Prog Note ---
Assessment/Plan Assessment: B/l LE cellulitis- R>L; improving -wound cx GBS, S. marcences (R ancef; otherwise S), K. oxytoca (S Ceftriaxone) Afebrile No leukocytosis CATERINA vs CKD; improving Afib w/ RVR- SP homelessness Plan: -Ceftriaxone #5 (abx d #6/7-10) -04/29 SP IV Vancomycin #3, Unasyn #3 -04/27 SP Zosyn x1 -f/u cx -Monitor CBC/CMP, temperatures -wound care per surgical team -cards, gen sx f/u Thank you for this consultation. Will continue to follow along with you. Discussed with RN. Subjective Allergies: Coded Allergies: No Known Allergies (Unverified , 04/27/20) afebrile out of ICU to SDU no leukocytosis Cr improving Objective Last 24 Hour Vital Signs Date Time Temp Pulse Resp B/P (MAP) Pulse Ox O2 Delivery O2 Flow Rate FiO2 05/03/20 12:00 98.2 77 18 143/64 (90) 95 05/03/20 12:00 68 05/03/20 09:00 Room Air 05/03/20 08:05 73 154/81 05/03/20 08:04 73 05/03/20 08:00 71 05/03/20 08:00 98.8 73 20 154/81 (105) 94 05/03/20 04:00 98.1 74 17 148/71 (96) 95 05/03/20 04:00 86 05/03/20 00:00 68 05/03/20 00:00 98.1 78 17 141/82 (101) 97 05/02/20 21:19 70 139/80 05/02/20 21:00 Room Air 05/02/20 20:00 98.2 70 18 139/80 (99) 95 05/02/20 20:00 74 05/02/20 16:00 97.9 75 18 121/74 (90) 95 05/02/20 16:00 69 Height (Feet): 6 Height (Inches): 2.00 Weight (Pounds): 219 General Appearance: well appearing, no apparent distress, alert Head: normocephalic, atraumatic Neck: full range of motion, supple Respiratory: chest non-tender, lungs clear, normal breath sounds Cardiovascular regular rate, rhythm, no murmur Gastrointestinal: normal bowel sounds, non tender, no mass, no organomegaly, no bruit, non-distended Musculoskeletal: back normal, normal range of motion, gait/station normal, other -B/l cellulitis and swelling improving Microbiology Date/Time Source Procedure Growth Status 04/30/20 16:15 Nasopharynx SARS-CoV-2 RdRp Gene Assay - Final Complete 04/30/20 15:41 Rectum VRE Culture - Final NO VANCOMYCIN RESISTANT ENTEROCOCCUS ... Complete 04/30/20 15:41 Rectum - Final NO CARBAPENEM-RESISTANT ENTEROBACTERI... Complete 04/30/20 15:41 Nose MRSA Culture - Final NO METHICILLIN RESISTANT STAPH AUREUS... Complete Laboratory Tests Test 05/03/20 06:00 White Blood Count 3.7 K/UL (4.8-10.8) L Red Blood Count 4.49 M/UL (4.70-6.10) L Hemoglobin 10.5 G/DL (14.2-18.0) L Hematocrit 35.8 % (42.0-52.0) L Mean Corpuscular Volume 80 FL (80-99) Mean Corpuscular Hemoglobin 23.5 PG (27.0-31.0) L Mean Corpuscular Hemoglobin Concent 29.4 G/DL (32.0-36.0) L Red Cell Distribution Width 15.6 % (11.6-14.8) H Platelet Count 236 K/UL (150-450) Mean Platelet Volume 11.0 FL (6.5-10.1) H Neutrophils (%) (Auto) 51.0 % (45.0-75.0) Lymphocytes (%) (Auto) 27.9 % (20.0-45.0) Monocytes (%) (Auto) 14.2 % (1.0-10.0) H Eosinophils (%) (Auto) 6.0 % (0.0-3.0) H Basophils (%) (Auto) 1.0 % (0.0-2.0) Sodium Level 139 MMOL/L (136-145) Potassium Level 3.8 MMOL/L (3.5-5.1) Chloride Level 106 MMOL/L (98-107) Carbon Dioxide Level 31 MMOL/L (21-32) Anion Gap 2 mmol/L (5-15) L Blood Urea Nitrogen 23 mg/dL (7-18) H Creatinine 1.3 MG/DL (0.55-1.30) Estimat Glomerular Filtration Rate > 60 mL/min (>60) Glucose Level 92 MG/DL (74-106) Calcium Level 8.3 MG/DL (8.5-10.1) L Digoxin Level 0.8 NG/ML (0.5-2.0) Current Medications Medications (Trade) Dose Ordered Sig/Naa Route PRN Reason Start Time Stop Time Status Last Admin Dose Admin Acetaminophen (Tylenol) 650 mg Q6H PRN ORAL Mild Pain (Pain Scale 1-3) 04/28/20 14:45 05/28/20 14:44 Acetaminophen (Tylenol) 650 mg Q6H PRN ORAL Temp >100.5 04/28/20 14:45 05/28/20 14:44 Carvedilol (Coreg) 25 mg EVERY 12 HOURS ORAL 04/29/20 21:00 05/29/20 20:59 05/03/20 08:05 Ceftriaxone Sodium 1 gm/ Dextrose 55 ml @ 110 mls/hr Q24H IVPB 04/29/20 21:00 05/06/20 20:59 05/02/20 21:19 Clonidine HCl (Catapres Tab) 0.1 mg Q2H PRN ORAL For High Blood Pressure 04/28/20 16:15 07/27/20 16:14 04/30/20 08:47 Digoxin (Lanoxin) 0.25 mg DAILY ORAL 04/29/20 09:00 07/28/20 08:59 05/03/20 08:04 Docusate Sodium (Colace) 100 mg TWICE A DAY ORAL 04/30/20 18:00 05/30/20 17:59 04/30/20 17:11 Enoxaparin Sodium (Lovenox) 100 mg EVERY 12 HOURS SUBQ 05/04/20 18:00 08/02/20 17:59 Furosemide (Lasix) 40 mg DAILY IV 04/28/20 09:00 05/28/20 08:59 05/03/20 08:05 Magnesium Oxide (Mag-Ox 400mg) 400 mg EVERY 12 HOURS ORAL 04/28/20 11:00 05/28/20 10:59 05/03/20 08:04 Morphine Sulfate (Morphine Sulfate) 2 mg Q4H PRN IVP Severe Pain (Pain Scale 7-10) 05/03/20 10:00 05/10/20 09:59 Sherron Leal M.D. May 03, 2020 12:52
--- NOTE | 2020-05-03 12:55 | NUR ---
CASE MANAGEMENT:REVIEW 05/03/20 SI: RAPID AFIB. BLE CELLULITIS 98.2 77 18 143/64 95% ON RA H/H-10.5/35.8 BUN+23 IS: IV ROCEPHIN Q24 COREG PO Q12 DIGOXIN PO QD MAG OXIDE PO Q12 IV LASIX QD : TELEMETRY STATUS DCP: FROM HOME PLAN: TRANSFER TO [facility]
--- NOTE | 2020-05-03 13:47 | Surgery Progress Note ---
Surgery Progress Note Subjective Additional Comments no acute events improved no bleeding labs stable no n/v Objective Last 24 Hour Vital Signs Date Time Temp Pulse Resp B/P (MAP) Pulse Ox O2 Delivery O2 Flow Rate FiO2 05/03/20 12:00 98.2 77 18 143/64 (90) 95 05/03/20 12:00 68 05/03/20 09:00 Room Air 05/03/20 08:05 73 154/81 05/03/20 08:04 73 05/03/20 08:00 71 05/03/20 08:00 98.8 73 20 154/81 (105) 94 05/03/20 04:00 98.1 74 17 148/71 (96) 95 05/03/20 04:00 86 05/03/20 00:00 68 05/03/20 00:00 98.1 78 17 141/82 (101) 97 05/02/20 21:19 70 139/80 05/02/20 21:00 Room Air 05/02/20 20:00 98.2 70 18 139/80 (99) 95 05/02/20 20:00 74 05/02/20 16:00 97.9 75 18 121/74 (90) 95 05/02/20 16:00 69 I&O Intake and Output 05/02/20 05/03/20 19:00 07:00 Intake Total 930 ml 540 ml Output Total 600 ml 650 ml Balance 330 ml -110 ml Intake Oral 930 ml 540 ml Output Urine Total 600 ml 650 ml # Bowel Movements 1 1 Dressing: dry Wound: clean Cardiovascular: RSR Respiratory: clear Abdomen: soft, non-tender, present bowel sounds Extremities: edema - improved , no tenderness, no cyanosis Laboratory Tests Test 05/03/20 06:00 White Blood Count 3.7 K/UL (4.8-10.8) L Red Blood Count 4.49 M/UL (4.70-6.10) L Hemoglobin 10.5 G/DL (14.2-18.0) L Hematocrit 35.8 % (42.0-52.0) L Mean Corpuscular Volume 80 FL (80-99) Mean Corpuscular Hemoglobin 23.5 PG (27.0-31.0) L Mean Corpuscular Hemoglobin Concent 29.4 G/DL (32.0-36.0) L Red Cell Distribution Width 15.6 % (11.6-14.8) H Platelet Count 236 K/UL (150-450) Mean Platelet Volume 11.0 FL (6.5-10.1) H Neutrophils (%) (Auto) 51.0 % (45.0-75.0) Lymphocytes (%) (Auto) 27.9 % (20.0-45.0) Monocytes (%) (Auto) 14.2 % (1.0-10.0) H Eosinophils (%) (Auto) 6.0 % (0.0-3.0) H Basophils (%) (Auto) 1.0 % (0.0-2.0) Sodium Level 139 MMOL/L (136-145) Potassium Level 3.8 MMOL/L (3.5-5.1) Chloride Level 106 MMOL/L (98-107) Carbon Dioxide Level 31 MMOL/L (21-32) Anion Gap 2 mmol/L (5-15) L Blood Urea Nitrogen 23 mg/dL (7-18) H Creatinine 1.3 MG/DL (0.55-1.30) Estimat Glomerular Filtration Rate > 60 mL/min (>60) Glucose Level 92 MG/DL (74-106) Calcium Level 8.3 MG/DL (8.5-10.1) L Digoxin Level 0.8 NG/ML (0.5-2.0) Plan Problems: (1) Homelessness (2) Cellulitis of both lower extremities Assessment & Plan: Patient present on admission with bilateral lower extremity cellulitis and edema. Recent trauma and persistently has had some edema now with superimposed infection cellulitis. No abscess identified. Wounds noted with skin breakdown small ulcerations in bilateral lower extremities right worse than left. Seemingly fluid overloaded as well. No acute surgical intervention recommended this time. Will need local wound care. Wash wounds daily with normal saline. Apply Thera honey to open ulcerations followed by nonadherent dressing and wrap with Kerlix. Keep leg elevated above with pillow. Turn every 2 hours. Offload pressures. Nutritional optimization. Will follow with local care and recommendations. Thank you for letting participate patient's care. Antibiotics per infectious disease. improving edema / cellulitis improved wounds stable cont diet cont abx as per ID keep legs elevated improving d/c planning covid neg thank you Duplex Doppler interrogation of the veins in both lower extremity is performed from the common femoral vein to the popliteal vein. Normal venous compressibility demonstrated throughout. No thrombus identified. Waveform analysis shows good respiratory phasicity and augmentation. There is mild subcutaneous soft tissue edema. IMPRESSION: No evidence of deep venous thrombosis involving the lower extremities. Marquise Zamorano May 03, 2020 13:47
[2020-05-03] MEDS ORDERED: CARVEDILOL25 MG ORAL (14:01)
[2020-05-03] MEDS ORDERED: LOVENOX10 M3 SUBQ (14:02)
[2020-05-03] MEDS ORDERED: CEFTRIAXON1 GM/50 ML IV (14:02)
[2020-05-03] MEDS ORDERED: MAG-OXIDE400 M1 PO (14:03)
[2020-05-03] MEDS ORDERED: DIGOXIN250 MCG ORAL (14:04)
[2020-05-03] MEDS ORDERED: MORPHINE 22 MG/1 ML IV (14:05)
[2020-05-03] MEDS ORDERED: CATAPRES0.1 MG ORAL (14:06)
[2020-05-03] MEDS ORDERED: DOCUSATE SODIU100 MG ORAL (14:07)
[2020-05-03] MEDS ORDERED: ACETAMINOPHEN325 M1 ORAL (14:08)
[2020-05-03] MEDS ORDERED: FUROSEMIDE40 MG/4 ML IV (14:08)
[2020-05-03 16:00] VITALS: BP 151/89
--- NOTE | 2020-05-03 16:09 | NUR ---
TRANSFER UPDATE FOLLOW UP CALL PLACED TO REPLACED BY [facility] (JACOB) T: [phone] STILL NO BEDS AVAILABLE PROVIDED JACOB WITH PHONE NUMBER TO [facility]. SHE WILL CALL ONCE BED IS AVAILABLE NURSING WILL NEED TO CALL [facility] FOR ACLS TRANSPORT
--- NOTE | 2020-05-03 17:39 | NUR ---
NURSE NOTES: Patient refused AM and PM doses of Docusate, reports he had three bowel movements today. Educated on risks and benefits, patient still refused.
--- NOTE | 2020-05-03 19:16 | NUR ---
NURSE HAND-OFF REPORT: Important Events on Shift: Patient is being discharged to [facility], pending available hospital bed; nurse to call [facility] for ACLS transport, endorsed to inform Dr. Avalos once patient is discharged. Wound care on bilateral extremities done in AM. Patient Status: Stable Diet: Regular Pending Orders: None Pending Results/Labs: None Pending MD notification: None Latest Vital Signs: Temperature 98.4 , Pulse 85 , B/P 151 /89 , Respiratory Rate 20 , O2 SAT 97 , Room Air, O2 Flow Rate . Vital Sign Comment: EKG Rhythm: Atrial Fibrillation Rhythm change?: N Notified?: Candace Dobbins MD Response: Latest Saleh Fall Score: 85 Fall Risk: High Risk Safety Measures: Call light Within Reach, Bed Alarm Zone 2, Side Rails Side Rails x2, Bed position Low and Locked. Fall Precautions: Yellow Socks Yellow Gown Door Sign Patient Fall Education Report given to Flaca ZHENG.
--- NOTE | 2020-05-03 19:21 | NUR ---
NURSE NOTES: Report received from Abbey Haines RN. Patient seen on rounds, awake, up in bed, not in distress, no complaints of pain. Afib controlled, HR 70's. PIV on right hand patent and intact. Wound dressing on bilateral lower extremities intact, feet elevated on pillows. Bed low and locked, siderails up x2, call light placed within reach and instructed to call nurse for assistance. Will continue to monitor.
[2020-05-03 20:00] VITALS: BP 149/82
[2020-05-03] MEDS: cefTRIAXone 1 GM in D5W 55 ML IVPB SCH (21:55)
[2020-05-04] VITALS: BP 128/78
[2020-05-04 04:00] VITALS: BP 150/74
--- NOTE | 2020-05-04 06:32 | Hematology/Onc Progress Note ---
Assessment/Plan Assessment/Plan Assessment and Recs # Hypercoag disorder with afib, rate control per cards --> continue on anticoag apixaban-->lovenox --> monitor for bleed # Leukopenia is likely related to lower ext cellulitis --> downtrending since admission --> wbc 4.2->3.9-->3.7 --> hep and hiv neg --> duplex leg is neg --> US ABD # Anemia likely due to chronic disease mild, also related to chf --> trend as needed hgb 11->11 --> no e/o hemolysis is noted # Cellulitis of both lower extremities --> abx as per Id --> surg eval -> wound care, rima clemente # Homelessness --> sw eval # Newly diagnosed cardiomyopathy with EF 40%. -> med management and cath per Lacey # Atrial fibrillation with rapid ventricular response. --> cards eval # Dvt ppx apix->lovenox Appreciate consultation and dano Rn Subjective HEENT: Denies: no symptoms, eye pain, blurred vision, tearing, double vision, ear pain, ear discharge, nose pain, nose congestion, throat pain, throat swelling, mouth pain, mouth swelling, other Cardiovascular: Denies: no symptoms, chest pain, edema, irregular heart rate, lightheadedness, palpitations, syncope, other Respiratory: Denies: no symptoms, cough, shortness of breath, SOB with excertion, SOB at rest, sputum, wheezing, other Gastrointestinal/Abdominal: Denies: no symptoms, abdomen distended, abdominal pain, black stools, tarry stools, blood in stool, constipated, diarrhea, difficulty swallowing, nausea, poor appetite, poor fluid intake, rectal bleeding, vomiting, other Genitourinary: Denies: no symptoms, burning, discharge, frequency, flank pain, hematuria, incontinence, pain, urgency, other Neurologic/Psychiatric: Denies: no symptoms, anxiety, depressed, emotional problems, headache, numbness, paresthesia, pre-existing deficit, seizure, tingling, tremors, weakness, other Endocrine: Denies: no symptoms, excessive sweating, flushing, intolerance to cold, intolerance to heat, increased hunger, increased thirst, increased urine, unexplained weight gain, unexplained weight loss, other Hematologic/Lymphatic: Denies: no symptoms, anemia, easy bleeding, easy bruising, adenopathy, other Allergies: Coded Allergies: No Known Allergies (Unverified , 04/27/20) Subjective 05/03 labs noted, no bleeding, meds reviewed, on eliquis per cards, wound care 05/04 pending potential dc to [facility], labs noted, wbc remains low Objective Objective Current Medications Medications (Trade) Dose Ordered Sig/Naa Route PRN Reason Start Time Stop Time Status Last Admin Dose Admin Acetaminophen (Tylenol) 650 mg Q6H PRN ORAL Mild Pain (Pain Scale 1-3) 04/28/20 14:45 05/28/20 14:44 Acetaminophen (Tylenol) 650 mg Q6H PRN ORAL Temp >100.5 04/28/20 14:45 05/28/20 14:44 Carvedilol (Coreg) 25 mg EVERY 12 HOURS ORAL 04/29/20 21:00 05/29/20 20:59 05/03/20 21:55 Ceftriaxone Sodium 1 gm/ Dextrose 55 ml @ 110 mls/hr Q24H IVPB 04/29/20 21:00 05/06/20 20:59 05/03/20 21:55 Clonidine HCl (Catapres Tab) 0.1 mg Q2H PRN ORAL For High Blood Pressure 04/28/20 16:15 07/27/20 16:14 04/30/20 08:47 Digoxin (Lanoxin) 0.25 mg DAILY ORAL 04/29/20 09:00 07/28/20 08:59 05/03/20 08:04 Docusate Sodium (Colace) 100 mg TWICE A DAY ORAL 04/30/20 18:00 05/30/20 17:59 04/30/20 17:11 Enoxaparin Sodium (Lovenox) 100 mg EVERY 12 HOURS SUBQ 05/04/20 18:00 08/02/20 17:59 Furosemide (Lasix) 40 mg DAILY IV 04/28/20 09:00 05/28/20 08:59 05/03/20 08:05 Magnesium Oxide (Mag-Ox 400mg) 400 mg EVERY 12 HOURS ORAL 04/28/20 11:00 05/28/20 10:59 05/03/20 21:54 Morphine Sulfate (Morphine Sulfate) 2 mg Q4H PRN IVP Severe Pain (Pain Scale 7-10) 05/03/20 10:00 05/10/20 09:59 Last 24 Hour Vital Signs Date Time Temp Pulse Resp B/P (MAP) Pulse Ox O2 Delivery O2 Flow Rate FiO2 05/04/20 04:00 98.1 75 17 150/74 (99) 95 05/04/20 04:00 92 05/04/20 00:00 98.0 80 20 128/78 (95) 95 05/04/20 00:00 64 05/03/20 21:55 78 149/82 05/03/20 21:00 Room Air 05/03/20 20:00 75 05/03/20 20:00 97.5 78 20 149/82 (104) 96 05/03/20 16:00 70 05/03/20 16:00 98.4 85 20 151/89 (109) 97 05/03/20 12:00 98.2 77 18 143/64 (90) 95 05/03/20 12:00 68 05/03/20 09:00 Room Air 05/03/20 08:05 73 154/81 05/03/20 08:04 73 05/03/20 08:00 71 05/03/20 08:00 98.8 73 20 154/81 (105) 94 05/03/20 04:00 98.1 74 17 148/71 (96) 95 05/03/20 04:00 86 05/03/20 00:00 68 05/03/20 00:00 98.1 78 17 141/82 (101) 97 05/02/20 21:19 70 139/80 05/02/20 21:00 Room Air 05/02/20 20:00 98.2 70 18 139/80 (99) 95 05/02/20 20:00 74 05/02/20 16:00 97.9 75 18 121/74 (90) 95 05/02/20 16:00 69 05/02/20 12:00 69 05/02/20 12:00 98.4 64 19 146/77 (100) 99 05/02/20 09:44 73 141/77 05/02/20 09:44 73 05/02/20 09:00 Room Air 05/02/20 08:00 97.7 76 19 141/77 (98) 95 05/02/20 08:00 73 Intake and Output 05/03/20 05/04/20 19:00 07:00 Intake Total 500 ml Balance 500 ml Intake Oral 500 ml # Voids 2 1 Labs Test 05/01/20 06:40 05/01/20 10:00 05/02/20 05:30 05/03/20 06:00 White Blood Count 4.4 K/UL (4.8-10.8) 3.9 K/UL (4.8-10.8) 3.7 K/UL (4.8-10.8) Red Blood Count 4.67 M/UL (4.70-6.10) 4.69 M/UL (4.70-6.10) 4.49 M/UL (4.70-6.10) Hemoglobin 11.2 G/DL (14.2-18.0) 11.0 G/DL (14.2-18.0) 10.5 G/DL (14.2-18.0) Hematocrit 37.5 % (42.0-52.0) 37.7 % (42.0-52.0) 35.8 % (42.0-52.0) Mean Corpuscular Volume 80 FL (80-99) 80 FL (80-99) 80 FL (80-99) Mean Corpuscular Hemoglobin 23.9 PG (27.0-31.0) 23.5 PG (27.0-31.0) 23.5 PG (27.0-31.0) Mean Corpuscular Hemoglobin Concent 29.8 G/DL (32.0-36.0) 29.2 G/DL (32.0-36.0) 29.4 G/DL (32.0-36.0) Red Cell Distribution Width 16.3 % (11.6-14.8) 15.9 % (11.6-14.8) 15.6 % (11.6-14.8) Platelet Count 226 K/UL (150-450) 223 K/UL (150-450) 236 K/UL (150-450) Mean Platelet Volume 10.4 FL (6.5-10.1) 9.8 FL (6.5-10.1) 11.0 FL (6.5-10.1) Neutrophils (%) (Auto) 54.6 % (45.0-75.0) 47.0 % (45.0-75.0) 51.0 % (45.0-75.0) Lymphocytes (%) (Auto) 28.5 % (20.0-45.0) 33.9 % (20.0-45.0) 27.9 % (20.0-45.0) Monocytes (%) (Auto) 9.5 % (1.0-10.0) 11.4 % (1.0-10.0) 14.2 % (1.0-10.0) Eosinophils (%) (Auto) 6.1 % (0.0-3.0) 6.9 % (0.0-3.0) 6.0 % (0.0-3.0) Basophils (%) (Auto) 1.2 % (0.0-2.0) 0.7 % (0.0-2.0) 1.0 % (0.0-2.0) Sodium Level 138 MMOL/L (136-145) 140 MMOL/L (136-145) 139 MMOL/L (136-145) Potassium Level 3.4 MMOL/L (3.5-5.1) 4.1 MMOL/L (3.5-5.1) 3.8 MMOL/L (3.5-5.1) Chloride Level 103 MMOL/L (98-107) 104 MMOL/L (98-107) 106 MMOL/L (98-107) Carbon Dioxide Level 30 MMOL/L (21-32) 32 MMOL/L (21-32) 31 MMOL/L (21-32) Anion Gap 5 mmol/L (5-15) 4 mmol/L (5-15) 2 mmol/L (5-15) Blood Urea Nitrogen 23 mg/dL (7-18) 23 mg/dL (7-18) 23 mg/dL (7-18) Creatinine 1.5 MG/DL (0.55-1.30) 1.3 MG/DL (0.55-1.30) 1.3 MG/DL (0.55-1.30) Estimat Glomerular Filtration Rate 54.7 mL/min (>60) > 60 mL/min (>60) > 60 mL/min (>60) Glucose Level 130 MG/DL (74-106) 91 MG/DL (74-106) 92 MG/DL (74-106) Calcium Level 8.2 MG/DL (8.5-10.1) 8.2 MG/DL (8.5-10.1) 8.3 MG/DL (8.5-10.1) Total Bilirubin 0.8 MG/DL (0.2-1.0) Aspartate Amino Transf (AST/SGOT) 37 U/L (15-37) Alanine Aminotransferase (ALT/SGPT) 44 U/L (12-78) Alkaline Phosphatase 107 U/L (46-116) Total Protein 6.7 G/DL (6.4-8.2) Albumin 1.8 G/DL (3.4-5.0) Globulin 4.9 g/dL Albumin/Globulin Ratio 0.4 (1.0-2.7) Hepatitis A IgM Antibody Negative (Negative) Hepatitis B Surface Antigen Negative (Negative) Hepatitis B Core IgM Antibody Negative (Negative) Hepatitis C Antibody <0.1 s/co ratio HIV (1&2) Antibody Rapid Negative (NEGATIVE) Digoxin Level 0.8 NG/ML (0.5-2.0) Height (Feet): 6 Height (Inches): 2.00 Weight (Pounds): 219 Agus Espinoza MD May 04, 2020 06:32
[2020-05-04 07:40] LABS: EOSINOPHILS % (AUTO) 6.4 % (0.0-3.0); HEMATOCRIT 37.1 % (42.0-52.0); HEMOGLOBIN 11.2 G/DL (14.2-18.0); LYMPHOCYTES % (AUTO) 34.8 % (20.0-45.0); MEAN CORPUSCULAR VOLUME 79 FL (80-99); MONOCYTES % (AUTO) 10.8 % (1.0-10.0); NEUTROPHILS % (AUTO) 46.9 % (45.0-75.0); PLATELET COUNT 258 K/UL (150-450); RED BLOOD COUNT 4.69 M/UL (4.70-6.10); RED CELL DISTRIBUTION WIDTH 15.6 % (11.6-14.8)
--- NOTE | 2020-05-04 07:46 | NUR ---
NURSE HAND-OFF REPORT: Important Events on Shift: Patient is being discharged to [facility], pending available hospital bed; nurse to call [facility] for ACLS transport, endorsed to inform Dr. Avalos once patient is discharged. Wound care on bilateral extremities done in AM and to be changed daily. Patient Status: Stable Diet: Regular Pending Orders: [facility], also Dr Espinoza added order for Abd US but pt had eaten, will come back later Pending Results/Labs: None Pending MD notification: None Latest Vital Signs: Temperature 98.4 , Pulse 85 , B/P 151 /89 , Respiratory Rate 20 , O2 SAT 97 , Room Air, O2 Flow Rate . Vital Sign Comment: EKG Rhythm: Atrial Fibrillation Rhythm change?: N Notified?: Candace Dobbins MD Response: Latest Saleh Fall Score: 85 Fall Risk: High Risk Safety Measures: Call light Within Reach, Bed Alarm Zone 2, Side Rails Side Rails x2, Bed position Low and Locked. Fall Precautions: Yellow Socks Yellow Gown Door Sign Patient Fall Education Report given to Paige ZHENG
[2020-05-04 08:00] VITALS: BP 146/95
[2020-05-04 08:13] LABS: ANION GAP 5 mmol/L (5-15); BLOOD UREA NITROGEN 19 mg/dL (7-18); CALCIUM 8.1 MG/DL (8.5-10.1); CARBON DIOXIDE 30 MMOL/L (21-32); CHLORIDE 105 MMOL/L (98-107); CREATININE 1.3 MG/DL (0.55-1.30); POTASSIUM 3.7 MMOL/L (3.5-5.1); SODIUM 140 MMOL/L (136-145)
--- NOTE | 2020-05-04 08:14 | NUR ---
NURSE NOTES: Received patient in bed awake. No SOB or acute distress. IV line intact and patient. Wound dressings intact. HOB elevated. Bed locked in low position. Call light within reach. Will continue plan of care.
[2020-05-04] MEDS: Docusate 100mg cap ORAL SCH (09:00)
[2020-05-04] MEDS: Carvedilol 25mg Tab ORAL SCH (09:32)
[2020-05-04] MEDS: Magnesium Oxide 400mg tab ORAL SCH (09:33)
--- NOTE | 2020-05-04 10:09 | NUR ---
NURSE NOTES: Awaiting bed at [facility], left message for Lilian Coke Crusher Operator to ff up. Charge nurse Rigoberto aware and getting in touch with Lilian Coke Crusher Operator. Wound dressing changed.
--- NOTE | 2020-05-04 10:16 | NUR ---
NURSE NOTES: Spoke with Digital Marketing Project Manager Archie, said she spoke with [facility]. [facility]aly is coordinating with [facility] at the moment, will await updates.
--- NOTE | 2020-05-04 10:19 | NUR ---
FURNACE ATTENDANT NOTES PT ACCEPTED AT [facility] ROOM 231. NURSE TO CALL REPORT TO [phone]. [facility] TO TRANSPORT PT.
--- NOTE | 2020-05-04 10:41 | NUR ---
RD ASSESSMENT & RECOMMENDATIONS SEE CARE ACTIVITY FOR COMPLETE ASSESSMENT DAILY ESTIMATED NEEDS: Needs based on pulmomary 90.8kg abw 25-30 kcals/kg 0515-2359 total kcals 1.25-1.5 g protein/kg 114-136 g total protein Fluid per MD, on lasix NUTRITION DIAGNOSIS: Decreased sodium needs r/t clinical status as evidenced by elev BP (146/95), BL LE cellulitis w/ 3+ edema. CURRENT DIET: Regular PO DIET RECOMMENDATIONS: LOW NA DIET ADDITIONAL RECOMMENDATIONS: 1) Obtain a calibrated bed scale wt 2) Monitor lytes on lasix 3) Add B-complex 1 tab daily 4) Add high pro snack in b/w meals
[2020-05-04 11:38] VITALS: BP 152/70
--- NOTE | 2020-05-04 11:53 | Cardiac Electrophysiology PN ---
Assessment/Plan Assessment/Plan 1.Newly diagnosed cardiomyopathy with EF 40%. Continue Coreg 25 bid, Digoxin 0.25 daily and Lasix 40 iv daily [facility] for further evaluation of his coronaries, especially in view of inferolateral ischemia DW patient the risks and benefits and he agrees to proceed 2. Atrial fibrillation with rapid ventricular response. Rate better on Coreg 25 bid and Digoxin 0.25 daily. Dig level 0.5 Changed Eliquis 5 mg b.i.d. to Lovenox sq bid 3. Bilateral lower extremity cellulitis. On antibiotic per ID and Dr Jaun STOUT RN and Dr Avalos Subjective Subjective On tele and rate is controlled in atrial fib in 70s. No CP or SOB.[facility] for [facility] pending today Objective Last 24 Hour Vital Signs Date Time Temp Pulse Resp B/P (MAP) Pulse Ox O2 Delivery O2 Flow Rate FiO2 05/04/20 11:38 99.5 64 20 152/70 (97) 99 05/04/20 09:33 64 05/04/20 09:32 64 146/95 05/04/20 09:00 Room Air 05/04/20 08:00 97.9 64 18 146/95 (112) 97 05/04/20 04:00 98.1 75 17 150/74 (99) 95 05/04/20 04:00 92 05/04/20 00:00 98.0 80 20 128/78 (95) 95 05/04/20 00:00 64 05/03/20 21:55 78 149/82 05/03/20 21:00 Room Air 05/03/20 20:00 75 05/03/20 20:00 97.5 78 20 149/82 (104) 96 05/03/20 16:00 70 05/03/20 16:00 98.4 85 20 151/89 (109) 97 05/03/20 12:00 98.2 77 18 143/64 (90) 95 05/03/20 12:00 68 Intake and Output 05/03/20 05/04/20 19:00 07:00 Intake Total 500 ml Balance 500 ml Intake Oral 500 ml # Voids 2 1 Laboratory Tests Test 05/04/20 05:40 05/04/20 05:45 White Blood Count 4.0 K/UL (4.8-10.8) L Red Blood Count 4.69 M/UL (4.70-6.10) L Hemoglobin 11.2 G/DL (14.2-18.0) L Hematocrit 37.1 % (42.0-52.0) L Mean Corpuscular Volume 79 FL (80-99) L Mean Corpuscular Hemoglobin 23.8 PG (27.0-31.0) L Mean Corpuscular Hemoglobin Concent 30.1 G/DL (32.0-36.0) L Red Cell Distribution Width 15.6 % (11.6-14.8) H Platelet Count 258 K/UL (150-450) Mean Platelet Volume 10.1 FL (6.5-10.1) Neutrophils (%) (Auto) 46.9 % (45.0-75.0) Lymphocytes (%) (Auto) 34.8 % (20.0-45.0) Monocytes (%) (Auto) 10.8 % (1.0-10.0) H Eosinophils (%) (Auto) 6.4 % (0.0-3.0) H Basophils (%) (Auto) 1.0 % (0.0-2.0) Sodium Level 140 MMOL/L (136-145) Potassium Level 3.7 MMOL/L (3.5-5.1) Chloride Level 105 MMOL/L (98-107) Carbon Dioxide Level 30 MMOL/L (21-32) Anion Gap 5 mmol/L (5-15) Blood Urea Nitrogen 19 mg/dL (7-18) H Creatinine 1.3 MG/DL (0.55-1.30) Estimat Glomerular Filtration Rate > 60 mL/min (>60) Glucose Level 112 MG/DL (74-106) H Calcium Level 8.1 MG/DL (8.5-10.1) L Objective NECK: mild JVD. LUNGS: Decreased breath sounds. CARDIOVASCULAR: Irregularly irregular S1 and S2 with no gallop. ABDOMEN: Soft. EXTREMITIES: Bilateral lower extremity edema and cellulitis. Adrian Rahman MD May 04, 2020 11:53
--- NOTE | 2020-05-04 12:16 | NUR ---
NURSE NOTES: Patient transferred to [facility] Rm 231, transported by ambulance. monitor technician removed. IV line kept intact on right hand g22. No new skin issues noted. Wound dressing done. Belongings accounted for. Report given to Jerry RN. Dr Avalos informed, his number left with Jerry RN, wants to be informed once patient arrives.
--- NOTE | 2020-05-04 13:26 | Surgery Progress Note ---
Surgery Progress Note Subjective Additional Comments late entry seen earlier. doing well [plan for [facility] vascular eval no complaints Objective Last 24 Hour Vital Signs Date Time Temp Pulse Resp B/P (MAP) Pulse Ox O2 Delivery O2 Flow Rate FiO2 05/04/20 11:38 99.5 64 20 152/70 (97) 99 05/04/20 09:33 64 05/04/20 09:32 64 146/95 05/04/20 09:00 Room Air 05/04/20 08:00 97.9 64 18 146/95 (112) 97 05/04/20 04:00 98.1 75 17 150/74 (99) 95 05/04/20 04:00 92 05/04/20 00:00 98.0 80 20 128/78 (95) 95 05/04/20 00:00 64 05/03/20 21:55 78 149/82 05/03/20 21:00 Room Air 05/03/20 20:00 75 05/03/20 20:00 97.5 78 20 149/82 (104) 96 05/03/20 16:00 70 05/03/20 16:00 98.4 85 20 151/89 (109) 97 I&O Intake and Output 05/03/20 05/04/20 19:00 07:00 Intake Total 500 ml Balance 500 ml Intake Oral 500 ml # Voids 2 1 Dressing: saturated Wound: clean Cardiovascular: RSR Respiratory: clear Abdomen: soft, non-tender, present bowel sounds Extremities: edema, no tenderness, no cyanosis Laboratory Tests Test 05/04/20 05:40 05/04/20 05:45 White Blood Count 4.0 K/UL (4.8-10.8) L Red Blood Count 4.69 M/UL (4.70-6.10) L Hemoglobin 11.2 G/DL (14.2-18.0) L Hematocrit 37.1 % (42.0-52.0) L Mean Corpuscular Volume 79 FL (80-99) L Mean Corpuscular Hemoglobin 23.8 PG (27.0-31.0) L Mean Corpuscular Hemoglobin Concent 30.1 G/DL (32.0-36.0) L Red Cell Distribution Width 15.6 % (11.6-14.8) H Platelet Count 258 K/UL (150-450) Mean Platelet Volume 10.1 FL (6.5-10.1) Neutrophils (%) (Auto) 46.9 % (45.0-75.0) Lymphocytes (%) (Auto) 34.8 % (20.0-45.0) Monocytes (%) (Auto) 10.8 % (1.0-10.0) H Eosinophils (%) (Auto) 6.4 % (0.0-3.0) H Basophils (%) (Auto) 1.0 % (0.0-2.0) Sodium Level 140 MMOL/L (136-145) Potassium Level 3.7 MMOL/L (3.5-5.1) Chloride Level 105 MMOL/L (98-107) Carbon Dioxide Level 30 MMOL/L (21-32) Anion Gap 5 mmol/L (5-15) Blood Urea Nitrogen 19 mg/dL (7-18) H Creatinine 1.3 MG/DL (0.55-1.30) Estimat Glomerular Filtration Rate > 60 mL/min (>60) Glucose Level 112 MG/DL (74-106) H Calcium Level 8.1 MG/DL (8.5-10.1) L Plan Problems: (1) Homelessness (2) Cellulitis of both lower extremities Assessment & Plan: Patient present on admission with bilateral lower extremity cellulitis and edema. Recent trauma and persistently has had some edema now with superimposed infection cellulitis. No abscess identified. Wounds noted with skin breakdown small ulcerations in bilateral lower extremities right worse than left. Seemingly fluid overloaded as well. No acute surgical intervention recommended this time. Will need local wound care. Wash wounds daily with normal saline. Apply Thera honey to open ulcerations followed by nonadherent dressing and wrap with Kerlix. Keep leg elevated above with pillow. Turn every 2 hours. Offload pressures. Nutritional optimization. Will follow with local care and recommendations. Thank you for letting participate patient's care. Antibiotics per infectious disease. improving edema / cellulitis improved wounds stable cont diet cont abx as per ID keep legs elevated improving d[facility] thank you Duplex Doppler interrogation of the veins in both lower extremity is performed from the common femoral vein to the popliteal vein. Normal venous compressibility demonstrated throughout. No thrombus identified. Waveform analysis shows good respiratory phasicity and augmentation. There is mild subcutaneous soft tissue edema. IMPRESSION: No evidence of deep venous thrombosis involving the lower extremities. Marquise Zamorano May 04, 2020 13:26
[2020-05-04] MEDS ORDERED: Enoxaparin 100mg Inj SUBQ SCH (18:00)
== END 2020-05-04 12:15 | disposition short-term general hospital (02) | DRG 871 ==
LOC: EMR 01:09 → 3E 01:35 → EDBEDREQ 02:04 → 2E 12:28 → ICU 04-28 08:08 → 2W 04-29 22:36 → 2E 04-30 18:33
DX: A41.9 Sepsis, unspecified organism (principal); I50.31 Acute diastolic (congestive) heart failure; L03.116 Cellulitis of left lower limb; I42.8 Other cardiomyopathies; N17.9 Acute kidney failure, unspecified; L03.115 Cellulitis of right lower limb; I48.91 Unspecified atrial fibrillation; N18.9 Chronic kidney disease, unspecified
CPT/HCPCS: 36415; 80048; 80053; 80162; 80202; 83605; 83735; 83880; 84100; 84443; 84484; 85025; 86703; 86705; 86709; 86803; 87070; 87081; 87181; 87205; 87340; 93005; 93306; 93970; 96365; 96366; 96368; 99285; J8499; U0002